=== PATIENT | female | born 1935 | race Caucasian/White ===

== ENCOUNTER → 2017-10-25 11:02 | Outpatient (CLI) | payer MEDICARE, SELFPAY ==
[2017-10-25 13:08] LABS: Hemoglobin A1C 9.1 % (4.5-6.2)
[2017-10-25 13:11] LABS: HCT 40.7 % (36.0-46.0); Mean Corp. HGB Concentration 31.9 g/dL (32.0-36.0); Mean Corpuscular Hemoglobin 30.7 pg (27.0-33.0); Mean Corpuscular Volume 96.2 fL (80-95); Mean Platelet Volume 11.1 fL (8.0-11.0); Platelet Count 263 x1000/uL (130-400); RBC 4.23 m/cumm (4.00-5.20); RBC Distribution Width 13.3 % (11.7-14.6); White Blood Cell Count 9.37 k/cumm (4.4-10.8)
[2017-10-25 13:21] LABS: ALT 27 U/L (12-78); AST 18 U/L (15-37); Albumin 3.8 g/dL (3.4-5.0); Alkaline Phosphatase 95 U/L (46-116); BUN 20 mg/dL (7-18); Bilirubin, Total 0.5 mg/dL (0.2-1.0); CREATININE 0.97 mg/dL (0.55-1.02); Calcium 9.1 mg/dL (8.5-10.1); Chloride 102 mmol/L (98-107); Estimated GFR 54.98 (mL/min/1.73m2); Glucose 242 mg/dL (70-100); Potassium 4.4 mmol/L (3.5-5.1); Sodium 138 mmol/L (136-145); TSH (W/Ref FT4) 0.71 uIU/mL (0.358-3.74); Total Protein 7.6 g/dL (6.4-8.2)
== END ==
PROVIDERS: PCP Family Medicine; Visit Provider Family Medicine
DX: E11.9 Type 2 diabetes mellitus without complications (principal); F41.9 Anxiety disorder, unspecified
CPT/HCPCS: 36415; 80053; 85027; 83036; 84443

== ENCOUNTER → 2017-11-02 02:57 | Outpatient (CLI) | payer MEDICARE, SELFPAY ==
[2017-11-02 10:11] LABS: Hemoglobin A1C 9.1 % (4.5-6.2)
== END ==
PROVIDERS: PCP Family Medicine; Visit Provider Family Medicine
DX: E11.9 Type 2 diabetes mellitus without complications (principal); R10.13 Epigastric pain
CPT/HCPCS: 36415; 83036

== ENCOUNTER 2017-11-09 10:00 | Outpatient (RCR) | payer MEDICARE, SELFPAY ==
--- NOTE | 2017-10-19 09:45 | NT_ITS ---
October 19, 2017 Vanessa cancelled todays scheduled appt secondary to illness.
--- NOTE | 2017-10-26 10:00 | PN_ITS ---
DATE: October 26, 2017 REFERRING: An Valente MD REFERRING PROVIDER DIAGNOSIS:: bilateral leg weakness, frequent falls REPORTING PERIOD (for progress note and discharge note only): 06/29/17-10/26/17 SUBJECTIVE: Vanessa notes that she has had a very busy morning prior coming into dept for her appt. She reports that her and her went out for breakfast for it is there 68 anniversary. She notes that she is already tired secondary to this and has been up since before 6 this morning. Standardized Measures: * Lower Extremity Functional Scale Score (LEFS): 50% perceived disability rating Objective: Gait: Continues to ambulate with wide base of support, shuffling pattern. No assistive device. Has limited arm swing and trunk rotation. She has poor foot clearance and tends to shuffle even with verbal cueing. Upon fatigue, this does get worse. Completed a 6 Min Walk Assessment: Ambulating 270 meters. This has improved since last reassessment. She continues to complain of low back and LE fatigue. She does report she is doing this on a daily basis at home with use of her walker on her porch. This remains the only time that she is utilizing an assistive device even after multiple recommendations that she should be utilizing more consistently to reduce her fear of falling and provide more adequate support with reducing stress on her low back. ROM: Active lumbopelvic forward bend fingertips to mid patella with hamstring drawing. Extension limited to 20 degrees, sidebending is 2 above lateral joint line. Rotation is equal and symmetrical. LE AAROM is WNL. Strength: Hip flexion 4/5, knee extension 5/5, knee flexion 5/5. She is able to heel and toe walk with hand held assistance and CG in case of loss of balance. This is without foot drop. She is independent with sidelying SLR, supine SLR and prone SLR, however has weakness with any resistance assessment of the hip abductors and extensors. Balance: Completed TUG in 11 seconds. Sit to stand transfers completing 2 repetitions in 30 seconds. This still remains very difficult for her and when she gets frustrated she has a hard time coming back and focusing on the task at hand. Have also continued to emphasize her HEP and functional sit to stands at home. She reports that she has not been completing. Her balance feet together for 10 seconds, foot in step of other foot 10 seconds , she is able to assume tandem stance for 10 seconds with FLOOR SWEEPER to assume position and cueing to promote proper weight shift to both LE. Unilateral stance remains very difficult and refused to try due to fatigue. She is very fearful of falling and is unable to focus on keeping core tight to allow the leg to remain up for unilateral. This is equal and consistent bilaterally. She is confident and comfortable with hand held assist. Continue to emphasize use of her walker at all times to prevent fall and fear of safety, and reduced balance. Treatment: Therapeutic Procedure [id number]: Completed Therex per her flow sheet promoting global LE strength and neuromuscular reeducation for balance and proprioceptive tasks. TPx2, NRx1 Treatment time: Direct: 60 minutes Total:60 minutes ASSESSMENT: Patient is an 81 year old female attending physical therapy secondary to bilateral LE weakness with falls, presents WFL ROM, does have some decreased lumbopelvic mobility s/p a previous surgery. She continues to present with core weakness, proximal hip weakness and significant deconditioning with diminished gait and balance. She continues to refuse use of an assistive device , even though we have continued to recommend this. She seems to be more active in her home and community tasks with less irritation. Continues to require PT services to promote level of function once every other week with promotion of strong HEP. Issued shower bench chair to promote her independence with showering with reduced fall risk. Will monitor her response to this. G-Codes (add modifier after appropriate code): Patient's primary functional limitation remains in the category of: * x Mobility - walking and moving around : [id number] Projected goal: [id number] STG: weeks. 1: Improve functional endurance with 6 min walk ambulating 150 meters compared to time of I.E. (Maintained level of greater than 200 meters, however no [id number] improvement since last progress note. 2: Improve tandem stance for 5 seconds. ( Met) 3: Independent sit to stand transfer without use of UE's. (Able to complete, however minimal repetitions). 4: Improve LE strength 1/2 muscle grade or greater. (MET) LTG: weeks. 1: Tolerating community ambulation distances for grocery shopping with use of a rolling walker (Met). 2: Improve perceived disability rating 25% or greater via LEFS (Met) 3: Able to tolerate light household symptoms with more manageable symptoms. ( Met). PLAN: Is for patient to continue once every other week. Our focus is to maintain level of strength, mobility and balance. This is at a maintenance level, do not feel she is going to improve at this pace, however do not want to see her regress with the progress she has made, and feel that on a once every other week basis, this will continue to improve her functional strength, work on home program. Hopefully as the warmer months come around, she will be able to get out more with her in the yard. I do emphasize compliancy of home program as well. Will look at going more towards a wellness portion of therapy as her symptoms present.
--- NOTE | 2017-11-09 10:00 | PTTR_ITS ---
DATE: November 09, 2017 SUBJECTIVE: Vanessa reports that she is having some increased irritation and cramping into her left LE. She tried to touch base with her PCP however they were too busy for her. She reports that she is trying to complete her HEP however does not do good on her own. She continues to feel that the strengthening that she gets in PT is very beneficial. OBJECTIVE: Therapeutic procedures ([id number]). * X HEP review: Upgraded HEP to include seated hamstring stretch and lumbar forward flexion stretch in chair. Completed without difficulty with complaints of increased tightness in her hamstring. * X See flow sheet: Incorporated global LE strength and cardiovascular activity with core stabilization. * X Provided skilled instruction in proper exercise performance: continues to require extensive cueing for proper body mechanics and postural awareness. * X Provided skilled manual cues to facilitate proper muscle recruitment and/ or movement pattern: Neuro Re-education - (73409 x1): Proprioceptive/balance activities utilizing static and dynamic tasks. Still encourage patient to utilize her walker on a regular basis due to her fear of falling and her continued strength deficits. Continues to fatigue quickly. Needs consistent encouragement and reassuring throughout routine. Emphasized her compliancy with a HEP or an outside exercise group class. Direct treatment time: 45minutes Total treatment time: 45 minutes
== END 2017-11-18 23:59 | disposition home or self-care (01) ==
LOC: PT 10:00
PROVIDERS: PCP Family Medicine; Referring Provider Family Medicine; Visit Provider Family Medicine
DX: M62.81 Muscle weakness (generalized) (principal); R29.6 Repeated falls
CPT/HCPCS: 97110; 97112; G8978

== ENCOUNTER 2017-11-18 16:02 | Outpatient (REF) | payer MEDICARE, SELFPAY | END 2017-11-18 16:03 | LOC: LBN 16:02 | PROVIDERS: PCP Family Medicine; Visit Provider Nurse Practitioner Family | DX: N30.90 Cystitis, unspecified without hematuria (principal) | CPT/HCPCS: 87086 ==

== ENCOUNTER 2018-01-05 10:00 | Outpatient (CLI) | payer MEDICARE, SELFPAY ==
[2018-01-05 13:38] LABS: Hemoglobin A1C 9.2 % (4.5-6.2)
== END 2018-01-05 10:20 ==
PROVIDERS: PCP Family Medicine; Visit Provider Family Medicine
DX: E11.9 Type 2 diabetes mellitus without complications (principal); F41.9 Anxiety disorder, unspecified
CPT/HCPCS: 36415; 83036

== ENCOUNTER 2018-05-02 10:10 | Outpatient (CLI) | payer MEDICARE, SELFPAY ==
[2018-05-02 12:47] LABS: Hemoglobin A1C 9.3 % (4.5-6.2)
== END 2018-05-02 10:30 ==
PROVIDERS: PCP Family Medicine; Visit Provider Family Medicine
DX: E11.9 Type 2 diabetes mellitus without complications (principal)
CPT/HCPCS: 36415; 83036

== ENCOUNTER 2018-09-01 13:22 | Outpatient (CLI) | payer MEDICARE, SELFPAY ==
[2018-09-01 13:48] LABS: Abs Immature Grans 0.01 k/cumm (0.0-0.09); Absolute Basophil Count 0.04 k/cumm (0.0-0.2); Absolute Eosinophil Count 0.22 k/cumm (0.0-0.7); Absolute Lymphocyte Count 2.96 k/cumm (1.2-3.4); Absolute Monocyte Count 0.96 k/cumm (0.11-0.7); Absolute Neutrophil Count 6.01 k/cumm (1.2-6.7); Basophils % 0.4; Eosinophils % 2.2; HCT 40.7 % (36.0-46.0); HGB 13.4 g/dL (12.0-15.5); Immature Grans % 0.1; Mean Corp. HGB Concentration 32.9 g/dL (32.0-36.0); Mean Corpuscular Hemoglobin 31.4 pg (27.0-33.0); Mean Corpuscular Volume 95.3 fL (80-95); Mean Platelet Volume 10.6 fL (8.0-11.0); Monocytes % 9.4; Neutrophils % 58.9; Platelet Count 274 x1000/uL (130-400); RBC 4.27 m/cumm (4.00-5.20); RBC Distribution Width 13.2 % (11.7-14.6)
[2018-09-01 14:04] LABS: Hemoglobin A1C 8.6 % (4.5-6.2)
[2018-09-01 14:20] LABS: Bilirubin Negative (Negative); Blood Trace-intact (Negative); Clarity Clear; Glucose Negative (Negative); Ketones Negative (Negative); Leukocyte Esterase Large (Negative); Nitrite Negative (Negative); Urobilinogen 0.2 EU/dL (Up TO 0.2); pH 5.5 (5-8)
[2018-09-01 14:50] LABS: ALT 22 U/L (12-78); AST 13 U/L (15-37); Albumin 3.8 g/dL (3.4-5.0); Alkaline Phosphatase 95 U/L (46-116); Anion Gap 10.6 mmol/L (3-11); BUN 28 mg/dL (7-18); Bilirubin, Total 0.3 mg/dL (0.2-1.0); CO2 27.4 mmol/L (21.0-32.0); CREATININE 1.11 mg/dL (0.55-1.02); Calcium 9.5 mg/dL (8.5-10.1); Chloride 100 mmol/L (98-107); Estimated GFR 46.94 (mL/min/1.73m2); Glucose 163 mg/dL (70-100); Lipase 64 U/L (73-393); Potassium 4.3 mmol/L (3.5-5.1); Sodium 138 mmol/L (136-145); TSH (W/Ref FT4) 0.71 uIU/mL (0.358-3.74); Total Protein 7.5 g/dL (6.4-8.2)
[2018-09-01 14:50] LABS: C & S Indicated? Yes; WBC >50 HPF (0-5)
== END 2018-09-01 13:42 ==
PROVIDERS: PCP Family Medicine; Visit Provider Family Medicine
DX: E11.9 Type 2 diabetes mellitus without complications (principal); R11.2 Nausea with vomiting, unspecified; K29.50 Unspecified chronic gastritis without bleeding
CPT/HCPCS: 36415; 80053; 83690; 87077; 81003; 81015; 83036; 84443; 85025; 87086; 87186

== ENCOUNTER 2018-11-10 03:34 | Outpatient (REF) | payer MEDICARE, SELFPAY | END 2018-11-10 03:54 | LOC: LBN 03:34 | PROVIDERS: PCP Family Medicine; Visit Provider Nurse Practitioner Family | DX: N39.0 Urinary tract infection, site not specified (principal) | CPT/HCPCS: 87086 ==

== ENCOUNTER 2018-11-23 10:02 | Outpatient (CLI) | payer MEDICARE, SELFPAY ==
--- NOTE | 2018-11-23 14:30 | DI.RAD_ITS ---
SYMPTOMS/DIAGNOSIS: LEFT HIP PAIN, M25.552 LEFT HIP AND PELVIS: Three views were obtained. There is mild narrowing of the cartilaginous joint space of the hip superiorly on the left. There are soft tissue calcifications adjacent to the greater trochanter of the femur, which could be associated with a trochanteric bursitis. No other bony or soft tissue abnormality seen involving the left hip. Findings of joint space narrowing and peritrochanteric calcification also noted on the right. 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
[2018-11-23 16:21] LABS: Hemoglobin A1C 7.6 % (4.5-6.2)
== END 2018-11-23 10:22 ==
PROVIDERS: PCP Family Medicine; Visit Provider Family Medicine
DX: M25.552 Pain in left hip (principal); M70.62 Trochanteric bursitis, left hip; E11.9 Type 2 diabetes mellitus without complications
CPT/HCPCS: 36415; 73502; 83036

== ENCOUNTER 2018-12-22 10:34 | Emergency (ER) | payer MEDICARE, SELFPAY ==
[2018-12-22 10:39] VITALS: BP 154/80; PULSE 103; RESP 16; TEMP 36.6; O2SAT 100
[2018-12-22 11:21] LABS: Bilirubin Negative (Negative); Blood Negative (Negative); Clarity Clear (Clear); Glucose 250 mg/dL (Negative); Ketones Negative (Negative); Leukocyte Esterase Trace (Negative); Nitrite Negative (Negative); Urobilinogen 0.2 EU/dL (Up TO 0.2); pH 5.5 (5-8)
[2018-12-22 11:27] LABS: Abs Immature Grans 0.03 k/cumm (0.0-0.09); Absolute Basophil Count 0.02 k/cumm (0.0-0.2); Absolute Eosinophil Count 0.12 k/cumm (0.0-0.7); Absolute Lymphocyte Count 2.24 k/cumm (1.2-3.4); Absolute Monocyte Count 0.66 k/cumm (0.11-0.7); Absolute Neutrophil Count 6.33 k/cumm (1.2-6.7); Basophils % 0.2; Eosinophils % 1.3; HCT 39.9 % (36.0-46.0); HGB 13.2 g/dL (12.0-15.5); Immature Grans % 0.3; Lymphocytes % 23.8; Mean Corp. HGB Concentration 33.1 g/dL (32.0-36.0); Mean Corpuscular Hemoglobin 31.4 pg (27.0-33.0); Mean Corpuscular Volume 94.8 fL (80-95); Mean Platelet Volume 10.1 fL (8.0-11.0); Neutrophils % 67.4; Platelet Count 251 x1000/uL (130-400); RBC 4.21 m/cumm (4.00-5.20); RBC Distribution Width 13.2 % (11.7-14.6)
[2018-12-22 11:40] LABS: ALT 17 U/L (14-59); AST 11 U/L (15-37); Albumin 3.7 g/dL (3.4-5.0); Alkaline Phosphatase 82 U/L (46-116); BUN 20 mg/dL (7-18); Bilirubin, Total 0.4 mg/dL (0.2-1.0); CREATININE 1.04 mg/dL (0.55-1.02); Calcium 8.8 mg/dL (8.5-10.1); Chloride 102 mmol/L (98-107); Estimated GFR 50.61 (mL/min/1.73m2); Glucose 254 mg/dL (70-100); Lipase 72 U/L (73-393); Potassium 3.9 mmol/L (3.5-5.1); Sodium 139 mmol/L (136-145); Total Protein 7.9 g/dL (6.4-8.2)
[2018-12-22 11:42] LABS: Bacteria Few HPF (Negative); C & S Indicated? Yes; Casts Negative LPF (Negative); Crystals Negative HPF (Negative); Epithelial Cells Few HPF (Negative); Mucus Trace (Negative)
[2018-12-22] MEDS: Lactated Ringers 1,000 ML 1000 ML IV (11:45)
--- NOTE | 2018-12-22 12:33 | W.ED.GENAD ---
Discharge Plan Disposition Patient Disposition: HOME Discharge Details Chief Complaint: Abd Prob Clinical Impression: Diarrhea, Chills Primary Care Provider: An Valente ED Provider: Howard Cook Home Meds and New Rx's Prescriptions: Continued calcium polycarbophil 625 mg tablet 1,250 mg PO DAILY RF: 0 Levemir FlexTouch U-100 Insuln 100 unit/mL (3 mL) insulin pen 17 unit SC QHS RF: 0 Tradjenta 5 mg tablet 5 mg PO QAM Qty: 90 RF: 4 lisinopril 2.5 mg tablet 2.5 mg PO DAILY Qty: 90 RF: 12 pantoprazole 40 mg tablet,delayed release (DR/EC) 40 mg PO DAILY Qty: 90 RF: 12 quetiapine 50 mg tablet 50 mg PO HS Qty: 90 RF: 6 quetiapine [Seroquel] 25 mg tablet 25 mg PO BID Qty: 180 RF: 4 pregabalin [Lyrica] 25 mg capsule 25 mg PO BID Qty: 60 RF: 4 Lumigan 5 ML drops 1 drp OU HS RF: 0 (DME) blood-glucose meter 1 EACH misc 1 ea Miscellaneous DAILY Qty: 100 RF: 12 (DME) lancets 1 EACH misc 1 ea Miscellaneous DAILY Qty: 100 RF: 4 (DME) Blood Glucose Test 1 EACH strip 1 ea Miscellaneous DAILY Qty: 100 RF: 12 sennosides-docusate sodium [Senna-S] 1 EACH tablet 1 tab PO HS PRNRF: 0 timolol maleate 15 ML drops 0.5 ml Ophthalmic DAILY Qty: 1 RF: 0 acetaminophen [Tylenol Extra Strength] 500 MG tablet 1 - 2 tab PO TID PRNRF: 0 (DME) Depend Underwear For Women S-M 1 EACH misc 1 ea Miscellaneous TID Qty: 90 RF: 11 uri calm 1 tab PO RF: 0 (DME) insulin syringe needleless [BD Insulin Syringe Slip Tip] 1 mL syringe See Dose Instructions .ROUTE BID Qty: 90 RF: 12 (DME) pen needle, diabetic [BD Ultra-Fine Mini Pen Needle] 31 gauge x 3/16 needle See Dose Instructions .ROUTE .MEDSUPPLY Qty: 90 RF: 4 fluticasone propionate 50 mcg/actuation spray,suspension 2 spray Inhalation BID Qty: 18.2 RF: 3 cholecalciferol (vitamin D3) 1,000 unit capsule 2,000 unit PO DAILY RF: 0 meclizine 12.5 mg tablet 12.5 mg PO DAILY PRN (Reason: dizziness) Qty: 90 RF: 0 triamcinolone acetonide 0.1 % paste 0.5 % Dental BID - QID Qty: 5 RF: 1 tramadol 50 mg tablet 50 mg PO TID PRN (Reason: pain) Qty: 90 RF: 4 lorazepam 0.5 mg tablet 0.25 mg PO BID-TID PRN (Reason: anxiety) Qty: 60 RF: 1 Discharge Instructions Instructions: Acute Diarrhea (ED), Diabetic Hyperglycemia (ED) Additional Instructions: Please contact your primary care physician to arrange follow-up. Call today. Please talk to your doctor about additional outpatient diagnostic testing including stool testing. Drink plenty of fluid to stay hydrated. Your blood sugar was elevated today at 254. Be sure to monitor your blood sugar closely and take your insulin as prescribed. Return to the ER for any worsening or new concerning symptoms. Referrals: An Valente MD, [place] [Primary Care Provider] - Discharge Data Discharge Date/Time-TO BE ENTERED AT DEPARTURE: 12/22/18 13:52 Medical Decision Making 1236: 83-year-old female with history of multiple medical problems here with complaint of intermittent diarrhea for 1.5 to 2 months now with some chills today. Abdominal exam benign with no tenderness. Patient denies cough. She denies urinary symptoms. Labs reviewed and nondiagnostic. No leukocytosis. Electrolytes normal. Urinalysis was reviewed and she does have trace leuk esterase, 10-20 WBCs. Negative nitrite, few epithelial cells. Plan to send urine culture -if culture positive, would recommend antibiotic coverage. Rectal exam was performed with female nurse office clinician and no significant inflammation of the rectum, no gross blood, Hemoccult negative. Patient unable to provide stool specimen here. I will refer her to follow-up with her primary care physician for additional stool testing given duration of symptoms. All results were discussed with the patient. Patient understands plan for outpatient follow-up. She will call her primary care physician to arrange timely follow-up. I encouraged her to return should have any worsening or new concerning symptoms. Usual and customary discharge instructions were provided. I did attempt to contact patient's PCP was able to get through to her at office. HPI General Mode of arrival: ambulatory. Date/Time Provider Initiated Documentation: 12/22/18 10:57. Limitations to Documentation: no limitations. Information obtained by: patient and family. HPI Narrative: 83-year-old female with multiple medical problems presents today with her , complaining of loose stools. Patient notes that she is been having loose stools intermittently for months. Patient notes she attempted to contact her primary care physician today was unable to. She notes that today she is been concerned because she has had some chills. Patient denies associated cough. No dysuria or increased urinary frequency. Patient denies bright red blood per rectum or melena. She denies abdominal pain. She does note that her rectum is sore when she has bowel movements. Related Data Home Medications Medication Instructions Recorded Confirmed Lumigan 1 drp OU HS script 10/08/13 12/22/18 blood-glucose meter #100 ea 06/23/15 12/05/18 lancets #100 ea 06/23/15 12/05/18 Blood Glucose Test #100 strip 10/03/15 12/05/18 sennosides-docusate sodium 1 tab PO HS PRN 05/27/16 12/22/18 [Senna-S] timolol maleate 0.5 ml OPHTHALMIC DAILY #1 script 10/19/16 12/22/18 acetaminophen [Tylenol Extra 1 - 2 tab PO TID PRN 06/23/17 12/22/18 Strength] Depend Underwear For Women S-M #90 ea 08/22/17 12/05/18 Uri Calm 1 tab PO 11/18/17 12/05/18 insulin syringe needleless 1 mL #90 syringe 05/08/18 12/05/18 pen needle, diabetic 31 gauge x #90 each 05/11/18 12/05/1806/03 calcium polycarbophil 625 mg tablet 1,250 mg PO DAILY 06/01/18 12/22/18 fluticasone propionate 50 2 spray INHALATION BID #18.2 gm 06/23/18 12/22/18 mcg/actuation nasal spray,suspension insulin detemir U-100 100 unit/mL 17 unit SC QHS ml 08/15/18 12/22/18 (3 mL) subcutaneous pen cholecalciferol (vitamin D3) 1,000 2,000 unit PO DAILY cap 08/23/18 12/22/18 unit capsule linagliptin 5 mg tablet 5 mg PO QAM #90 tab 08/23/18 12/22/18 lisinopril 2.5 mg tablet 2.5 mg PO DAILY #90 tab-cap 09/04/18 12/22/18 pantoprazole 40 mg tablet,delayed 40 mg PO DAILY #90 tab-cap 09/04/18 12/22/18 release quetiapine 25 mg tablet 25 mg PO BID #180 tab-cap 09/04/18 12/22/18 quetiapine 50 mg tablet 50 mg PO HS #90 tab-cap 09/04/18 12/22/18 meclizine 12.5 mg tablet 12.5 mg PO DAILY PRN #90 tab 10/12/18 12/22/18 triamcinolone acetonide 0.1 % 0.5 % DENTAL BID - QID #5 gm 11/21/18 12/22/18 dental paste tramadol 50 mg tablet 50 mg PO TID PRN #90 tab 11/29/18 12/22/18 lorazepam 0.5 mg tablet 0.25 mg PO BID-TID PRN #60 tab 12/04/18 12/22/18 pregabalin 25 mg capsule 25 mg PO BID #60 cap 12/05/18 12/22/18 Previous Rx's Medication Instructions Recorded insulin syringe needleless 1 mL #90 syringe 05/08/18 pen needle, diabetic 31 gauge x #90 each 05/11/1806/03 fluticasone propionate 50 2 spray INHALATION BID #18.2 gm 06/23/18 mcg/actuation nasal spray,suspension linagliptin 5 mg tablet 5 mg PO QAM #90 tab 08/23/18 lisinopril 2.5 mg tablet 2.5 mg PO DAILY #90 tab-cap 09/04/18 pantoprazole 40 mg tablet,delayed 40 mg PO DAILY #90 tab-cap 09/04/18 release quetiapine 25 mg tablet 25 mg PO BID #180 tab-cap 09/04/18 quetiapine 50 mg tablet 50 mg PO HS #90 tab-cap 09/04/18 meclizine 12.5 mg tablet 12.5 mg PO DAILY PRN #90 tab 07/25/19 triamcinolone acetonide 0.1 % 0.5 % DENTAL BID - QID #5 gm 11/21/18 dental paste tramadol 50 mg tablet 50 mg PO TID PRN #90 tab 11/29/18 lorazepam 0.5 mg tablet 0.25 mg PO BID-TID PRN #60 tab 12/04/18 pregabalin 25 mg capsule 25 mg PO BID #60 cap 12/05/18 Allergies Allergy/AdvReac Type Severity Reaction Status Date / Time erythromycin base Allergy Mild Skin Rash Verified 12/05/18 12:58 aminophylline Allergy Unknown unknown Verified 12/05/18 12:58 ethylenediamine Allergy Unknown unknown Verified 12/05/18 12:58 nystatin Allergy Unknown unknown Verified 12/05/18 12:58 pyrilamine Allergy Unknown unknown Verified 12/05/18 12:58 ampicillin Allergy Skin Rash Verified 12/05/18 12:58 zinc Allergy unknown Verified 12/05/18 12:58 clindamycin AdvReac Intermediate upset Verified 12/05/18 12:58 stomach/diarrhea hydrocodone AdvReac Intermediate Nausea Verified 12/05/18 12:58 metformin AdvReac Intermediate Verified 12/05/18 12:58 nitrofurantoin AdvReac Intermediate Diarrhea, Verified 12/05/18 12:58 increased LFT's ciprofloxacin [From Cipro] AdvReac Diarrha Verified 12/05/18 12:58 ciprofloxacin HCl AdvReac Diarrha Verified 12/05/18 12:58 [From Cipro] gabapentin AdvReac Makes her Verified 12/05/18 12:58 feel funny mirtazapine AdvReac Makes room Verified 12/05/18 12:58 spin General Stated Complaint: Abd Prob BERTRAND: 4 Review of Systems Review of Systems ROS Unobtainable: All systems reviewed & are unremarkable except as noted in HPI and below Cardiovascular Cardiovascular: Denies chest pain Respiratory Respiratory: Denies cough Gastrointestinal Gastrointestinal: Reports as per HPI, Denies abdominal pain and Reports diarrhea Integumentary/Breasts Skin/Breast: Denies rash [facility] Medical History Abnormal weight loss (Resolved 01/19/11) now normal Abnormal weight loss (Resolved 01/19/11) Allergic rhinitis (Resolved) Anxiety Anxiety (Chronic) Asthma (Chronic 05/24/12) Bacterial vaginosis (Resolved 04/18/13) Cataract of both eyes (Resolved 01/22/16) Cataracts, bilateral (Resolved) 01/22/16 Cervical pain (neck) (Resolved) 12/06/16 Cholelithiasis without obstruction (Resolved) 05/24/12 s/p cholecystectomy Cholelithiasis without obstruction (Resolved 05/24/12) Chronic duodenal ulcer (Resolved) Chronic duodenal ulcer (Resolved) Chronic gastritis (Resolved) per EGD in 1999 Chronic gastritis (Chronic) Chronic right shoulder pain (Resolved) 12/15/15 Cystocele, midline (Chronic) Depressive disorder (Chronic 11/13/12) Diabetes mellitus (Chronic 05/24/12) poor control; poor insight Diabetes mellitus, type 2 Elevated LFTs (Resolved) 06/17/14 Essential hypertension (Chronic 01/01/13) Fatigue (Chronic 08/12/15) Gastroparesis (Chronic 08/17/16) Glaucoma (Chronic 11/06/13) Health education/counseling (Resolved) Hyperlipidemia (Chronic 11/13/12) Hypertension Impaired ambulation (Chronic) Increased frequency of urination (Resolved) 01/18/12 Increased frequency of urination (Chronic 01/18/12) Irritable colon (Chronic) 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) Mammogram abnormal (Resolved) 02/17/95 left Medication management (Chronic 07/31/15) easily and often confused about medications despite several interventions (HH, CCC, BHS, multiple OV) Memory changes (Chronic) Nausea (Inactive) Nausea with vomiting (Resolved) 01/18/12 Neck pain (Chronic 12/06/16) Neurodermatitis (Chronic) Onychomycosis (Chronic 12/06/16) 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 Valente Peptic ulcer (Resolved) 04/20/11 Dr. 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) S/P SURGERY Spinal stenosis, multilevel (Resolved) 05/04/11 Syncope (Resolved 12/05/12) Trigger finger (acquired) (Resolved 06/17/16) Trigger finger, left middle finger (Chronic 07/07/16) Trochanteric bursitis (Resolved 01/21/11) Trochanteric bursitis (Resolved 01/21/11) Urinary incontinence (Chronic 12/06/16) Surgical History Cholecystectomy (~1998) Colonoscopy - MAC (~1998) NEG EGD - MAC (08/03/11) H/O esophagogastroduodenoscopy (Resolved) 03/21/11 Hysterectomy, Laproscopic (~1989) S/P cholecystectomy (Resolved) 03/21/98 S/P laparoscopic hysterectomy (Resolved) 03/21/89 Status post cholecystectomy (Resolved) Status post laparoscopic hysterectomy (Resolved) Family History Mother , AGE 78 Diabetes Father Diabetes Heart disease Sister Diabetes Brother Diabetes Heart disease Sister Diabetes Social History Smoking/Tobacco Use Status: Never Alcohol Intake: never Drug use: Never Substance use type: does not use Household members: spouse What type of physical activity do you participate in: decline to answer Duration: decline to answer Frequency: decline to answer Christelle/Anabaptism: Gnosticism Special christelle needs: No Seatbelt use: always Do you feel safe at home: Yes Do you feel safe in your relationship?: Yes Exam Const General: cooperative and no acute distress HENMT Head: normocephalic Mouth: moist mucous membranes Eyes Conjunctivae: normal conjunctivae Sclera: normal sclerae Neck Neck: trachea midline and supple Resp Auscultation: clear to auscultation bilaterally, no rales, no rhonchi and no wheezes Cardio Jugular venous pressure: no JVD Rate: regular rate and not tachycardic Rhythm: regular rhythm GI Palpation: soft, not firm, no guarding, no masses, not rigid and nontender Skin General skin exam: no rashes or lesions noted Neuro General: alert, awake and tone normal Extrem General: no edema Psych Appearance: grossly normal Mental Status: mental status grossly normal Course Vital Signs Vital signs: Vital Signs Temperature 36.6 C 12/22/18 10:39 Pulse 103 H 12/22/18 10:39 Respiratory Rate 16 12/22/18 10:39 Blood Pressure 154/80 H 12/22/18 10:39 Pulse Oximetry 100 12/22/18 10:39 Temperature 36.6 C 12/22/18 10:39 Temperature Source Skin 12/22/18 10:39 Pulse 103 H 12/22/18 10:39 Respiratory Rate 16 12/22/18 10:39 Respiratory Effort Non-Labored 12/22/18 10:42 Blood Pressure 154/80 H 12/22/18 10:39 Pulse Oximetry 100 12/22/18 10:39 Oxygen Delivery Method Room Air 12/22/18 10:39 Oxygen Flow Rate 0 12/22/18 10:39 Lab/Test Results Lab/Test Results: 12/22/18 11:01 Urine - Reflex from Ua Urine Culture - Pending Laboratory Tests Range/Units 12/22/18 12/22/18 12/22/18 11:01 11:22 11:22 WBC (4.4-10.8) k/cumm 9.40 RBC (4.00-5.20) m/cumm 4.21 Hgb (12.0-15.5) g/dL 13.2 Hct (36.0-46.0) % 39.9 MCV (80-95) fL 94.8 MCH (27.0-33.0) pg 31.4 MCHC (32.0-36.0) g/dL 33.1 RDW (11.7-14.6) % 13.2 Plt Count (130-400) x1000/uL 251 MPV (8.0-11.0) fL 10.1 Immature Gran % 0.3 Neutrophils % 67.4 Lymphocytes % 23.8 Monocytes % 7.0 Eosinophils % 1.3 Basophils % 0.2 Absolute Neutrophils (1.2-6.7) k/cumm 6.33 Absolute Lymphocytes (1.2-3.4) k/cumm 2.24 Absolute Monocytes (0.11-0.7) k/cumm 0.66 Absolute Eosinophils (0.0-0.7) k/cumm 0.12 Absolute Basophils (0.0-0.2) k/cumm 0.02 Sodium (136-145) mmol/L 139 Potassium (3.5-5.1) mmol/L 3.9 Chloride (98-107) mmol/L 102 Carbon Dioxide (21.0-32.0) mmol/L 26.0 Anion Gap (3-11) mmol/L 11.0 BUN (7-18) mg/dL 20 H Creatinine (0.55-1.02) mg/dL 1.04 H Estimated GFR/1.73 m2 (mL/min/1.73m2) 50.61 Glucose (70-100) mg/dL 254 H Calcium (8.5-10.1) mg/dL 8.8 Total Bilirubin (0.2-1.0) mg/dL 0.4 AST (15-37) U/L 11 L ALT (14-59) U/L 17 Alkaline Phosphatase (46-116) U/L 82 Total Protein (6.4-8.2) g/dL 7.9 Albumin (3.4-5.0) g/dL 3.7 Lipase (73-393) U/L 72 L Urine Color (Yellow) Yellow Urine Clarity (Clear) Clear Urine pH (5-8) 5.5 Ur Specific Emerson (1.005-1.025) 1.020 Urine Protein (Negative) mg/dL Negative Urine Ketones (Negative) mg/dL Negative Urine Blood (Negative) Negative Urine Nitrite (Negative) Negative Urine Bilirubin (Negative) Negative Urine Urobilinogen (Up TO 0.2) EU/dL 0.2 Ur Leukocyte Esterase (Negative) Trace H Urine RBC (0-2) 3-5 H Urine WBC (0-5) HPF 10-20 Ur Epithelial Cells (Negative) HPF Few Urine Crystals (Negative) HPF Negative Urine Bacteria (Negative) HPF Few Urine Casts (Negative) LPF Negative Urine Mucus (Negative) Trace Ur Culture Indicated? Yes Urine Glucose (Negative) mg/dL 250 H
--- NOTE | 2018-12-22 16:27 | NUR.NOTE ---
Nursing Note: Referral faxed to [facility] for follow up. Eloina Nguyễn.
== END 2018-12-22 13:52 | disposition home or self-care (01) ==
PROVIDERS: Emergency Provider Student in an Organized Health Care Education/Training Program; PCP Family Medicine
DX: R19.7 Diarrhea, unspecified (principal); R68.83 Chills (without fever)
CPT/HCPCS: 36415; 80053; 83690; 96360; 99283; 81003; 81015; 85025; 87086

== ENCOUNTER 2018-12-26 11:03 | Outpatient (REF) | payer MEDICARE, SELFPAY ==
[2018-12-27 11:13] LABS: Campylobacter PCR SEE COMMENTS; Salmonella PCR SEE COMMENTS; Shiga Toxin PCR SEE COMMENTS; Shigella/Enteroinvasive Ecoli SEE COMMENTS
== END 2018-12-26 11:23 ==
LOC: LBN 11:03
PROVIDERS: PCP Family Medicine; Visit Provider Family Medicine
DX: K29.50 Unspecified chronic gastritis without bleeding (principal); R10.9 Unspecified abdominal pain
CPT/HCPCS: 87505

== ENCOUNTER 2018-12-29 00:17 | Outpatient (CLI) | payer MEDICARE, SELFPAY ==
--- NOTE | 2018-12-29 11:57 | DI.CT_ITS ---
EXAM: CT ABDOMEN PELVIS W CLINICAL HISTORY: CHRONIC ABDOMINAL PAIN, R10.9, GASTRITIS, K29.50. TECHNIQUE: A with oral and intravenous contrast enhanced CT examination of the abdomen and pelvis wa s carried out according to the usual protocol. COMPARISON: ABD PELVIS WITH CONTRAST from 06/15/2014 FINDINGS: There are small regions of atelectasis in the left lung base. Note is made of a small hiatus herni a. Patient is status post cholecystectomy and there is some dilatation of the common duct and mild d ilatation of the intrahepatic biliary radicles. Findings presumably on a postsurgical basis. The pa ncreas is atrophic. Spleen is unremarkable. Very small bilateral renal cysts. Extrarenal pelves ar e demonstrated. There is no evidence of hydronephrosis. The adrenals are intact. There is no evide nce of bowel obstruction. There is nothing to suggest an acute appendix. The bladder is dilated and is otherwise unremarkable. The patient is status post hysterectomy. There is no evidence of free flu id or free air in the intraperitoneal space. There are atherosclerotic changes involving the aorta w ithout evidence of an aneurysm. Diffuse degenerative changes involving the lower lumbar spine are ap parent. IMPRESSION: No acute abnormality is seen. Status post cholecystectomy and hysterectomy. There is some dilatatio n of the common duct and intrahepatic biliary radicles, most likely on a postsurgical basis. No harrison l pathology is apparent. Note is made of considerable dilatation of the bladder.
[2018-12-29] MEDS: Omnipaque 350 MG/ML 50 ML BTL PO (12:35)
[2018-12-29] MEDS: Breeza Beverage 473 ML BTL PO ×2 (12:35→12:36)
[2018-12-29] MEDS: Omnipaque 350 MG/ML 100 ML BTL IJ (14:03)
== END 2018-12-29 00:37 ==
PROVIDERS: PCP Family Medicine; Visit Provider Family Medicine
DX: R10.9 Unspecified abdominal pain (principal); K29.50 Unspecified chronic gastritis without bleeding; G89.29 Other chronic pain; N32.89 Other specified disorders of bladder; Z90.49 Acquired absence of other specified parts of digestive tract; Z90.710 Acquired absence of both cervix and uterus; K83.8 Other specified diseases of biliary tract
CPT/HCPCS: 74177; J3490; Q9967

== ENCOUNTER 2019-01-09 10:58 | Outpatient (CLI) | payer MEDICARE, SELFPAY ==
[2019-01-10 13:44] LABS: Bilirubin Negative (Negative); Blood Negative (Negative); Clarity Clear (Clear); Glucose Negative (Negative); Ketones Negative (Negative); Leukocyte Esterase Moderate (Negative); Nitrite Positive (Negative); Specific Gravity 1.015 (1.005-1.025); Urobilinogen 0.2 EU/dL (Up TO 0.2); pH 5.5 (5-8)
[2019-01-10 13:58] LABS: Bacteria Many HPF (Negative); C & S Indicated? Yes; Casts Negative LPF (Negative); Crystals Negative HPF (Negative); Epithelial Cells Few HPF (Negative); Mucus Negative (Negative); RBC Negative (0-2); WBC >50 HPF (0-5)
== END 2019-01-09 11:18 ==
PROVIDERS: PCP Family Medicine; Visit Provider Family Medicine
DX: R30.0 Dysuria (principal)
CPT/HCPCS: 87077; 81003; 81015; 87086; 87186

== ENCOUNTER → 2019-01-10 12:53 | Outpatient (BNVA) | payer MEDICARE, SELFPAY | PROVIDERS: PCP Family Medicine; Referring Provider Family Medicine; Visit Provider Surgery | DX: R19.7 Diarrhea, unspecified (principal); I10 Essential (primary) hypertension; E11.9 Type 2 diabetes mellitus without complications | CPT/HCPCS: 99202; 99213 ==

== ENCOUNTER 2019-01-11 16:37 | Outpatient (REF) | payer MEDICARE, SELFPAY ==
[2019-01-13 11:19] LABS: Campylobacter PCR SEE COMMENTS; Salmonella PCR SEE COMMENTS; Shiga Toxin PCR SEE COMMENTS; Shigella/Enteroinvasive Ecoli SEE COMMENTS
== END 2019-01-11 16:57 ==
LOC: LBN 16:37
PROVIDERS: PCP Family Medicine; Visit Provider Surgery
DX: R19.7 Diarrhea, unspecified (principal)
CPT/HCPCS: 87505; 83630; 87324

== ENCOUNTER 2019-01-12 14:15 | Emergency (ER) | payer MEDICARE, SELFPAY ==
[2019-01-12] VITALS (7 sets, daily range): BP systolic 94–147; BP diastolic 51–113; PULSE 67–71; RESP 16–20; TEMP 35.9–36.8; O2SAT 97–98
--- NOTE | 2019-01-12 14:35 | DI.CT_ITS ---
EXAM: CT HEAD WO CLINICAL HISTORY: fall, head trauma TECHNIQUE: The exam was performed according to the usual protocol without contrast. COMPARISON: HEAD WITHOUT CONTRAST from 08/01/2011 FINDINGS: Ventricles and sulci are consistent with the patient's age. There are areas of decreased attenuation in the white matter most consistent with small vessel ischemic disease. No acute intracranial hemor rhage, midline shift, or mass effect is present. The ventricles are intact. The basilar cisterns ar e patent. No fluid levels are seen in the visualized paranasal sinuses. There is mild mucosal thick ening in the ethmoid air cells. Mastoid air cells are well pneumatized. The calvarium is intact. IMPRESSION: No acute intracranial process.
--- NOTE | 2019-01-12 14:36 | W.ED.GENAD ---
Discharge Plan Disposition Patient Disposition: HOME Condition: Stable Discharge Details Chief Complaint: Dizzy/Sync Clinical Impression: Vertigo Primary Care Provider: An Valente ED Provider: James Easley Home Meds and New Rx's Prescriptions: Continued calcium polycarbophil 625 mg tablet 1,250 mg PO DAILY RF: 0 Levemir FlexTouch U-100 Insuln 100 unit/mL (3 mL) insulin pen 17 unit SC QHS RF: 0 Tradjenta 5 mg tablet 5 mg PO QAM Qty: 90 RF: 4 lisinopril 2.5 mg tablet 2.5 mg PO DAILY Qty: 90 RF: 12 pantoprazole 40 mg tablet,delayed release (DR/EC) 40 mg PO DAILY Qty: 90 RF: 12 quetiapine [Seroquel] 25 mg tablet 25 mg PO BID Qty: 180 RF: 4 pregabalin [Lyrica] 25 mg capsule 25 mg PO BID Qty: 60 RF: 4 Lumigan 5 ML drops 1 drp OU HS RF: 0 (DME) blood-glucose meter 1 EACH misc 1 ea Miscellaneous DAILY Qty: 100 RF: 12 (DME) lancets 1 EACH misc 1 ea Miscellaneous DAILY Qty: 100 RF: 4 (DME) Blood Glucose Test 1 EACH strip 1 ea Miscellaneous DAILY Qty: 100 RF: 12 sennosides-docusate sodium [Senna-S] 1 EACH tablet 1 tab PO HS PRNRF: 0 timolol maleate 15 ML drops 0.5 ml Ophthalmic DAILY Qty: 1 RF: 0 acetaminophen [Tylenol Extra Strength] 500 MG tablet 1 - 2 tab PO TID PRNRF: 0 (DME) Depend Underwear For Women S-M 1 EACH misc 1 ea Miscellaneous TID Qty: 90 RF: 11 uri calm 1 tab PO RF: 0 (DME) insulin syringe needleless [BD Insulin Syringe Slip Tip] 1 mL syringe See Dose Instructions .ROUTE BID Qty: 90 RF: 12 (DME) pen needle, diabetic [BD Ultra-Fine Mini Pen Needle] 31 gauge x 3/16 needle See Dose Instructions .ROUTE .MEDSUPPLY Qty: 90 RF: 4 cholecalciferol (vitamin D3) 1,000 unit capsule 2,000 unit PO DAILY RF: 0 meclizine 12.5 mg tablet 12.5 mg PO DAILY PRN (Reason: dizziness) Qty: 90 RF: 0 triamcinolone acetonide 0.1 % paste 0.5 % Dental BID - QID Qty: 5 RF: 1 tramadol 50 mg tablet 50 mg PO TID PRN (Reason: pain) Qty: 90 RF: 4 lorazepam 0.5 mg tablet 0.25 mg PO BID-TID PRN (Reason: anxiety) Qty: 60 RF: 1 Discharge Instructions Additional Instructions: your lab work and cat scan did not show any concerning findings take the meclizine every 6 hours follow up with your primary care provider next week if you feel more ill, have fevers or difficulty breathing or pain return to the emergency department Medical Decision Making 83 yo female with multiple medical problems comes in after she had an episode where she became dizzy, flushed, n/v and felt like she may lose consciousness. She was shopping in [employer] and was sitting on her walking chair and the symptoms started. She denies chest pain, sob, abdominal pain. She states she feels dizzy similar to her prior vertigo that she takes meclizine for. she has nofocal neuro deficits, NIH of 0 on exam. She has a reassuring HINTs exam. I suspect that this was vasovagal syncope but will eval for anemia, electrolyte abnormalities, cardiac ischemia and given the fall obtain ct head. pt's labs and imaging are unremarkable and her symptoms have resolved with meclizine which she has at home. Feel she is stable for d/c, likely had vasovagal episode vs peripheral vertigo. Discussed the results with her and robert and they are in agreement with d/c and follow up with pcp, return precautions given Differential Diagnosis Differential Diagnosis: orthostasis, vasovagal, syncope Medical Records Medical records reviewed: Yes I reviewed the patient's medical records. Imaging Data Radiologic Study: Attestation: I personally reviewed and interpreted this imaging study as follows: Imaging: CT Scan Radiologist's impression: no acute findings Lab Data Lab results reviewed: Yes I reviewed the patient's lab results. ECG Data Attestation: I personally reviewed and interpreted this ECG (s) as follows: Prior ECG tracings: not available for review Interpretation: sinus rhythm, rate of 60, pr 150 HPI General Mode of arrival: EMS. Date/Time Provider Initiated Documentation: 01/12/19 14:16. Limitations to Documentation: no limitations. Information obtained by: patient and EMS. History of Present Illness 83 year old F presents to the emergency department with the chief complaint of dizzy, described as moderate, Patient started experiencing this hour(s) (1) No relieving factors improve symptom(s), No exacerbating factors reported . Patient notes no other symptoms.. Related Data Home Medications Medication Instructions Recorded Confirmed Lumigan 1 drp OU HS script 10/08/13 01/10/19 blood-glucose meter #100 ea 06/23/15 01/10/19 lancets #100 ea 06/23/15 01/10/19 Blood Glucose Test #100 strip 10/03/15 01/10/19 sennosides-docusate sodium 1 tab PO HS PRN 05/27/16 01/10/19 [Senna-S] timolol maleate 0.5 ml OPHTHALMIC DAILY #1 script 10/19/16 01/10/19 acetaminophen [Tylenol Extra 1 - 2 tab PO TID PRN 06/23/17 01/10/19 Strength] Depend Underwear For Women S-M #90 ea 08/22/17 01/10/19 Uri Calm 1 tab PO 11/18/17 01/10/19 insulin syringe needleless 1 mL #90 syringe 05/08/18 01/10/19 pen needle, diabetic 31 gauge x #90 each 05/11/18 01/10/1906/03 calcium polycarbophil 625 mg tablet 1,250 mg PO DAILY 06/01/18 01/10/19 insulin detemir U-100 100 unit/mL 17 unit SC QHS ml 08/15/18 01/10/19 (3 mL) subcutaneous pen cholecalciferol (vitamin D3) 1,000 2,000 unit PO DAILY cap 08/23/18 01/10/19 unit capsule linagliptin 5 mg tablet 5 mg PO QAM #90 tab 08/23/18 01/10/19 lisinopril 2.5 mg tablet 2.5 mg PO DAILY #90 tab-cap 09/04/18 01/10/19 pantoprazole 40 mg tablet,delayed 40 mg PO DAILY #90 tab-cap 09/04/18 01/10/19 release quetiapine 25 mg tablet 25 mg PO BID #180 tab-cap 09/04/18 01/10/19 meclizine 12.5 mg tablet 12.5 mg PO DAILY PRN #90 tab 10/12/18 01/10/19 triamcinolone acetonide 0.1 % 0.5 % DENTAL BID - QID #5 gm 11/21/18 01/10/19 dental paste tramadol 50 mg tablet 50 mg PO TID PRN #90 tab 11/29/18 01/10/19 lorazepam 0.5 mg tablet 0.25 mg PO BID-TID PRN #60 tab 12/04/18 01/10/19 pregabalin 25 mg capsule 25 mg PO BID #60 cap 12/05/18 01/10/19 Previous Rx's Medication Instructions Recorded insulin syringe needleless 1 mL #90 syringe 05/08/18 pen needle, diabetic 31 gauge x #90 each 05/11/1806/03 linagliptin 5 mg tablet 5 mg PO QAM #90 tab 08/23/18 lisinopril 2.5 mg tablet 2.5 mg PO DAILY #90 tab-cap 09/04/18 pantoprazole 40 mg tablet,delayed 40 mg PO DAILY #90 tab-cap 09/04/18 release quetiapine 25 mg tablet 25 mg PO BID #180 tab-cap 09/04/18 meclizine 12.5 mg tablet 12.5 mg PO DAILY PRN #90 tab 10/12/18 triamcinolone acetonide 0.1 % 0.5 % DENTAL BID - QID #5 gm 11/21/18 dental paste tramadol 50 mg tablet 50 mg PO TID PRN #90 tab 11/29/18 lorazepam 0.5 mg tablet 0.25 mg PO BID-TID PRN #60 tab 12/04/18 pregabalin 25 mg capsule 25 mg PO BID #60 cap 12/05/18 Allergies Allergy/AdvReac Type Severity Reaction Status Date / Time erythromycin base Allergy Mild Skin Rash Verified 01/10/19 12:57 aminophylline Allergy Unknown unknown Verified 01/10/19 12:57 ethylenediamine Allergy Unknown unknown Verified 01/10/19 12:57 nystatin Allergy Unknown unknown Verified 01/10/19 12:57 pyrilamine Allergy Unknown unknown Verified 01/10/19 12:57 ampicillin Allergy Skin Rash Verified 01/10/19 12:57 zinc Allergy unknown Verified 01/10/19 12:57 clindamycin AdvReac Intermediate upset Verified 01/10/19 12:57 stomach/diarrhea hydrocodone AdvReac Intermediate Nausea Verified 01/10/19 12:57 metformin AdvReac Intermediate Verified 01/10/19 12:57 nitrofurantoin AdvReac Intermediate Diarrhea, Verified 01/10/19 12:57 increased LFT's ciprofloxacin [From Cipro] AdvReac Diarrha Verified 01/10/19 12:57 ciprofloxacin HCl AdvReac Diarrha Verified 01/10/19 12:57 [From Cipro] gabapentin AdvReac Makes her Verified 01/10/19 12:57 feel funny mirtazapine AdvReac Makes room Verified 01/10/19 12:57 spin General Stated Complaint: Dizzy/Sync BERTRAND: 3 Review of Systems All systems reviewed & are unremarkable except as noted in HPI and below Constitutional Constitutional: Denies chills and Denies fever(s) Cardiovascular Cardiovascular: Denies chest pain and Denies dyspnea Respiratory Respiratory: Denies cough and Denies dyspnea Gastrointestinal Gastrointestinal: Denies abdominal pain, Denies nausea and Denies vomiting Musculoskeletal Musculoskeletal: Denies joint swelling Psychiatric Psychiatric: Denies depression [facility] Medical History (Updated 01/10/19 @ 13:42 by Katie Garces DO) Abnormal weight loss (Resolved 01/19/11) now normal Abnormal weight loss (Resolved 01/19/11) Allergic rhinitis (Resolved) Anxiety Anxiety (Chronic) Asthma (Chronic 05/24/12) Bacterial vaginosis (Resolved 04/18/13) Cataract of both eyes (Resolved 01/22/16) Cataracts, bilateral (Resolved) 01/22/16 Cervical pain (neck) (Resolved) 12/06/16 Cholelithiasis without obstruction (Resolved) 05/24/12 s/p cholecystectomy Cholelithiasis without obstruction (Resolved 05/24/12) Chronic duodenal ulcer (Resolved) Chronic duodenal ulcer (Resolved) Chronic gastritis (Resolved) per EGD in 1999 Chronic gastritis (Chronic) Chronic right shoulder pain (Resolved) 12/15/15 Cystocele, midline (Chronic) Depressive disorder (Chronic 11/13/12) Diabetes mellitus (Chronic 05/24/12) poor control; poor insight Diabetes mellitus, type 2 Diarrhea (Acute) Elevated LFTs (Resolved) 06/17/14 Essential hypertension (Chronic 01/01/13) Fatigue (Chronic 08/12/15) Gastroparesis (Chronic 08/17/16) Glaucoma (Chronic 11/06/13) Health education/counseling (Resolved) Hyperlipidemia (Chronic 11/13/12) Hypertension Impaired ambulation (Chronic) Increased frequency of urination (Resolved) 01/18/12 Increased frequency of urination (Chronic 01/18/12) Irritable colon (Chronic) 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) Mammogram abnormal (Resolved) 02/17/95 left Medication management (Chronic 07/31/15) easily and often confused about medications despite several interventions (HH, CCC, BHS, multiple OV) Memory changes (Chronic) Nausea (Inactive) Nausea with vomiting (Resolved) 01/18/12 Neck pain (Chronic 12/06/16) Neurodermatitis (Chronic) Onychomycosis (Chronic 12/06/16) 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 Valente Peptic ulcer (Resolved) 04/20/11 Dr. 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) S/P SURGERY Spinal stenosis, multilevel (Resolved) 05/04/11 Syncope (Resolved 12/05/12) Trigger finger (acquired) (Resolved 06/17/16) Trigger finger, left middle finger (Chronic 07/07/16) Trochanteric bursitis (Resolved 01/21/11) Trochanteric bursitis (Resolved 01/21/11) Urinary incontinence (Chronic 12/06/16) Surgical History Cholecystectomy (~1998) Colonoscopy - MAC (~1998) NEG EGD - MAC (08/03/11) H/O esophagogastroduodenoscopy (Resolved) 03/21/11 Hysterectomy, Laproscopic (~1989) S/P cholecystectomy (Resolved) 03/21/98 S/P laparoscopic hysterectomy (Resolved) 03/21/89 Status post cholecystectomy (Resolved) Status post laparoscopic hysterectomy (Resolved) Social History Smoking/Tobacco Use Status: Never Alcohol Intake: never Drug use: Never Substance use type: does not use Household members: spouse Current gender identity: female What type of physical activity do you participate in: decline to answer Duration: decline to answer Frequency: decline to answer Christelle/Hinduism: Gnosticism Special christelle needs: No Seatbelt use: always Do you feel safe at home: Yes Do you feel safe in your relationship?: Yes Exam Const General: no acute distress Orientation: alert HENMT Head: normal to inspection Ears: external ears normal General nose exam: external nose normal Mouth: moist mucous membranes Eyes General: appearance normal, both eyes and all related structures Neck Neck: normal visual inspection Resp Effort & Inspection: normal respiratory effort and able to speak in complete sentences Cardio Rate: regular rate Skin General skin exam: no rashes or lesions noted Neuro General: alert and oriented x3 Extrem General: normal to inspection Psych Mental Status: mental status grossly normal Course Vital Signs Vital signs: Vital Signs Temperature 35.9 C L 01/12/19 14:22 Pulse 67 01/12/19 14:22 Respiratory Rate 16 01/12/19 14:22 Blood Pressure 126/113 H 01/12/19 14:22 Pulse Oximetry 97 01/12/19 14:22 Temperature 35.9 C L 01/12/19 14:22 Temperature Source Skin 01/12/19 14:22 Pulse 67 01/12/19 14:22 Respiratory Rate 20 01/12/19 14:30 Respiratory Effort 01/12/19 14:33 Respiratory Depth Normal 01/12/19 14:33 Respiratory Pattern Normal 01/12/19 14:33 Blood Pressure 126/113 H 01/12/19 14:22 Blood Pressure Position Sitting 01/12/19 14:22 Pulse Oximetry 98 01/12/19 14:33 Oxygen Delivery Method Room Air 01/12/19 14:33 Oxygen Flow Rate 0 01/12/19 14:33 Pain Level 0 01/12/19 14:22
[2019-01-12] MEDS: Meclizine 12.5 MG TAB PO (14:55)
[2019-01-12 15:14] LABS: Abs Immature Grans 0.03 k/cumm (0.0-0.09); Absolute Basophil Count 0.03 k/cumm (0.0-0.2); Absolute Eosinophil Count 0.21 k/cumm (0.0-0.7); Absolute Lymphocyte Count 3.59 k/cumm (1.2-3.4); Absolute Monocyte Count 0.78 k/cumm (0.11-0.7); Absolute Neutrophil Count 5.14 k/cumm (1.2-6.7); Basophils % 0.3; Eosinophils % 2.1; HCT 39.9 % (36.0-46.0); HGB 13.1 g/dL (12.0-15.5); Immature Grans % 0.3; Lymphocytes % 36.7; Mean Corp. HGB Concentration 32.8 g/dL (32.0-36.0); Mean Corpuscular Hemoglobin 31.2 pg (27.0-33.0); Mean Platelet Volume 10.8 fL (8.0-11.0); Neutrophils % 52.6; Platelet Count 314 x1000/uL (130-400); RBC Distribution Width 13.5 % (11.7-14.6); White Blood Cell Count 9.78 k/cumm (4.4-10.8)
[2019-01-12 15:19] LABS: ALT 20 U/L (14-59); AST 12 U/L (15-37); Albumin 3.6 g/dL (3.4-5.0); Alkaline Phosphatase 77 U/L (46-116); Anion Gap 8.8 mmol/L (3-11); BUN 27 mg/dL (7-18); Bilirubin, Total 0.4 mg/dL (0.2-1.0); CO2 28.2 mmol/L (21.0-32.0); CREATININE 1.03 mg/dL (0.55-1.02); Calcium 9.2 mg/dL (8.5-10.1); Chloride 104 mmol/L (98-107); Estimated GFR 51.17 (mL/min/1.73m2); Glucose 160 mg/dL (70-100); Lipase 68 U/L (73-393); Potassium 3.7 mmol/L (3.5-5.1); Sodium 141 mmol/L (136-145); Total Protein 7.7 g/dL (6.4-8.2); Troponin I < 0.05 ng/mL (0.00-0.06)
[2019-01-12 15:45] LABS: PTT Activated 21.5 sec (21.0-31.4)
--- NOTE | 2019-01-12 16:16 | DI.VRAD_ITS ---
PROCEDURE INFORMATION: Exam: CT Head Without Contrast Exam date and time: 01/12/2019 4:01 PM Clinical history: 83 years old, female; Injury or trauma; Initial encounter; Blunt trauma (contusions or hematomas); Injury details: Fall, head trauma TECHNIQUE: Imaging protocol: Computed tomography of the head without contrast. COMPARISON: No relevant prior studies available. FINDINGS: Brain: There is brain parenchymal atrophy.There is nonspecific white matter disease, likely related to chronic ischemic demyelination. No intracranial hemorrhage is seen. No acute arterial territory stroke is noted. Ventricles: Normal. No ventriculomegaly. Bones/joints: Unremarkable. No acute fracture. Sinuses: Mucosal thickening in the ethmoid sinuses. Mastoid air cells: Visualized mastoid air cells are well aerated. Soft tissues: Unremarkable. IMPRESSION: No intracranial hemorrhage or skull fracture. Dictated and Authenticated by: Martha Vu MD. Ordering:VINNIE Ramirez MD
== END 2019-01-12 16:54 | disposition home or self-care (01) ==
PROVIDERS: Emergency Provider Emergency Medicine; PCP Family Medicine
DX: R42 Dizziness and giddiness (principal); I10 Essential (primary) hypertension; E16.9 Disorder of pancreatic internal secretion, unspecified; Z79.4 Long term (current) use of insulin
CPT/HCPCS: 36415; 80053; 83690; 93005; 99285; 70450; 83735; 84484; 85025; 85610; 85730; 93010

== ENCOUNTER → 2019-01-29 10:38 | Outpatient (BNVA) | payer MEDICARE, SELFPAY | PROVIDERS: PCP Family Medicine; Referring Provider Family Medicine; Visit Provider Student in an Organized Health Care Education/Training Program | DX: M70.61 Trochanteric bursitis, right hip (principal); M25.551 Pain in right hip; I10 Essential (primary) hypertension; E11.9 Type 2 diabetes mellitus without complications; Z79.84 Long term (current) use of oral hypoglycemic drugs | CPT/HCPCS: 99203; 99214 ==

== ENCOUNTER → 2019-02-19 12:51 | Outpatient (BNVA) | payer MEDICARE, SELFPAY | PROVIDERS: PCP Family Medicine; Referring Provider Family Medicine; Visit Provider Student in an Organized Health Care Education/Training Program | DX: M70.61 Trochanteric bursitis, right hip (principal); I10 Essential (primary) hypertension; E11.9 Type 2 diabetes mellitus without complications; Z79.4 Long term (current) use of insulin | CPT/HCPCS: 20610; 99213; J1040 ==

== ENCOUNTER 2019-03-27 11:07 | Outpatient (CLI) | payer MEDICARE, SELFPAY ==
[2019-03-27 14:39] LABS: Hemoglobin A1C 7.3 % (3.8-5.6)
== END 2019-03-27 11:27 ==
PROVIDERS: PCP Family Medicine; Visit Provider Family Medicine
DX: E11.9 Type 2 diabetes mellitus without complications (principal)
CPT/HCPCS: 36415; 83036

== ENCOUNTER 2019-04-25 09:54 | Outpatient (CLI) | payer MEDICARE, SELFPAY ==
[2019-04-25 10:17] LABS: Bilirubin Negative (Negative); Blood Small (Negative); Clarity Cloudy (Clear); Glucose Negative (Negative); Ketones Negative (Negative); Leukocyte Esterase Large (Negative); Nitrite Positive (Negative); Urobilinogen 0.2 EU/dL (Up TO 0.2)
[2019-04-25 10:27] LABS: C & S Indicated? Yes; WBC >50 HPF (0-5)
== END 2019-04-25 10:14 ==
PROVIDERS: PCP Family Medicine; Visit Provider Family Medicine
DX: R35.0 Frequency of micturition (principal)
CPT/HCPCS: 87077; 81003; 81015; 87086; 87186

== ENCOUNTER 2019-05-10 09:25 | Outpatient (CLI) | payer MEDICARE, SELFPAY ==
[2019-05-12 09:57] LABS: Bilirubin Negative (Negative); Blood Small (Negative); Clarity Sl Cloudy (Clear); Glucose Negative (Negative); Ketones Negative (Negative); Leukocyte Esterase Moderate (Negative); Nitrite Negative (Negative); Specific Gravity 1.025 (1.005-1.025); Urobilinogen 0.2 EU/dL (Up TO 0.2)
[2019-05-12 10:07] LABS: Bacteria Many HPF (Negative); C & S Indicated? Yes; WBC >50 HPF (0-5)
== END 2019-05-10 09:45 ==
PROVIDERS: PCP Family Medicine; Visit Provider Family Medicine
DX: R30.0 Dysuria (principal)
CPT/HCPCS: 87077; 81003; 81015; 87086; 87186

== ENCOUNTER 2019-05-14 09:13 | Observation (INO) | payer MEDICARE, SELFPAY ==
[2019-05-14 09:17] VITALS: BP 161/74; PULSE 110; RESP 18; TEMP 36.7; O2SAT 97
[2019-05-14 10:03] LABS: Bilirubin Negative (Negative); Blood Moderate (Negative); Clarity Cloudy (Clear); Glucose 100 mg/dL (Negative); Ketones Negative (Negative); Leukocyte Esterase Moderate (Negative); Nitrite Negative (Negative); Specific Gravity 1.025 (1.005-1.025); Urobilinogen 0.2 EU/dL (Up TO 0.2); pH 5.5 (5-8)
[2019-05-14 10:14] LABS: WBC >50 HPF (0-5)
[2019-05-14 10:15] LABS: Bacteria Many HPF (Negative)
[2019-05-14 10:16] LABS: C & S Indicated? C&S Done As Ordered
[2019-05-14] MEDS: Normal Saline 1,000 ML 1000 ML IV (10:25)
[2019-05-14] MEDS: Normal Saline Flush 10 ML SYR IVP ×2 (10:25→13:41)
[2019-05-14 10:44] LABS: Abs Immature Grans 0.02 k/cumm (0.0-0.09); Absolute Basophil Count 0.02 k/cumm (0.0-0.2); Absolute Eosinophil Count 0.03 k/cumm (0.0-0.7); Absolute Lymphocyte Count 1.64 k/cumm (1.2-3.4); Absolute Monocyte Count 0.61 k/cumm (0.11-0.7); Absolute Neutrophil Count 7.89 k/cumm (1.2-6.7); Basophils % 0.2; Eosinophils % 0.3; HCT 40.4 % (36.0-46.0); HGB 13.2 g/dL (12.0-15.5); Immature Grans % 0.2 %; Lymphocytes % 16.1; Mean Corp. HGB Concentration 32.7 g/dL (32.0-36.0); Mean Corpuscular Hemoglobin 30.8 pg (27.0-33.0); Mean Corpuscular Volume 94.4 fL (80-95); Mean Platelet Volume 10.6 fL (8.0-11.0); Neutrophils % 77.2; Platelet Count 265 x1000/uL (130-400); RBC 4.28 m/cumm (4.00-5.20); RBC Distribution Width 13.8 % (11.7-14.6); White Blood Cell Count 10.21 k/cumm (4.4-10.8)
[2019-05-14 10:59] LABS: ALT 18 U/L (14-59); AST 13 U/L (15-37); Albumin 3.6 g/dL (3.4-5.0); Alkaline Phosphatase 64 U/L (46-116); Anion Gap 9.5 mmol/L (3-11); BUN 23 mg/dL (7-18); Bilirubin, Total 0.5 mg/dL (0.2-1.0); CO2 26.5 mmol/L (21.0-32.0); CREATININE 0.88 mg/dL (0.55-1.02); Calcium 8.9 mg/dL (8.5-10.1); Chloride 103 mmol/L (98-107); Glucose 284 mg/dL (74-106); Potassium 3.9 mmol/L (3.5-5.1); Sodium 139 mmol/L (136-145); Total Protein 7.4 g/dL (6.4-8.2)
[2019-05-14 11:21] VITALS: BP 134/49; PULSE 92; RESP 18; TEMP 36.6; O2SAT 97
--- NOTE | 2019-05-14 11:53 | DI.CT_ITS ---
EXAM: CT ABDOMEN PELVIS W CLINICAL HISTORY: perineal pain TECHNIQUE: CT examination of the abdomen and pelvis was performed with bolus infusion of 73 cc of Om nipaque 350. COMPARISON: CT ABDOMEN PELVIS W from 12/29/2018 FINDINGS: Images obtained through the lung bases are unremarkable. The liver is grossly unremarkable. Mild extrahepatic biliary dilatation noted unchanged from 12/29/2018. Gallbladder has been surgically rem anderson. Spleen is unremarkable in appearance. Pancreas is unremarkable in appearance. Adrenals are unremarkable in appearance. No focal renal abnormality apart from apparent tiny bilater al renal cysts. There is marked wall thickening of the urinary bladder and there appears to be gas within the bladder , possibly interstitial. There is pericystic increased fat attenuation. Mild dilatation of the dist al ureters is noted, no gross obstruction present however. No gross abdominal or pelvic adenopathy. No abdominal aortic aneurysm. No major vascular abnormalit y. No significant abdominal wall hernia. Normal appearance of the appendix. No evidence of diverti culitis or bowel obstruction. Hiatal hernia noted. IMPRESSION: Mildly distended bladder with markedly thickened irregular wall and possible interstitial gas in the bladder wall, the findings are new since prior CT of December 2018 and are highly suggestive of severe acute cystitis. Urologic consultation suggested.
[2019-05-14] MEDS: Omnipaque 350 MG/ML 100 ML BTL IJ (12:08)
[2019-05-14] MEDS: cefTRIAXone 1 GM/50 ML BAG IVPB ×2 (13:41→15:26)
[2019-05-14] MEDS: Phenazopyridine 200 MG TAB (13:50)
[2019-05-14] MEDS: Lidocaine 2% Jelly 6 ML SYR (14:44)
--- NOTE | 2019-05-14 15:36 | W.UROLOGYCON ---
Date of service: 05/14/19 Time of Service: 15:36 Assessment and Plan Assessment and plan (1) Emphysematous cystitis: Status: Acute Assessment and plan: The finding of air within the bladder raises the question of recent instrumentation, some type of fistula to the bladder or emphysematous cystitis with a gas-forming organism. The patient does not give a history of recent instrumentation. She has no bowel symptoms and no CT findings suspicious for a fistula. Klebsiella certainly can be a gas-forming organism. 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 Urine and blood culture have been obtained. It looks like all of her previous cultures have grown Klebsiella, so we will use her most recent culture to guide our antibiotic choices to start. We will place a Manuel catheter to keep her bladder drained and adjust her antibiotics as the cultures come in. History of Present Illness History of Present Illness Chief Complaint: UTI Narrative: This is an 84-year-old woman who has a history of recurrent Klebsiella urinary tract infections. She tells me that she has been compliant with antibiotic treatment in the past. It looks like she was on a course of Keflex as recently as 2 to 3 weeks ago. She comes in to the emergency room with a 3 to 4-week history of abdominal discomfort. Her urine is again suspicious for urinary tract infection. She underwent CT scanning which showed a new finding of air within the bladder. She denied any fevers or chills. She has not had any change in her bowels. She has no prior history of diverticulitis. She has never had any pelvic surgeries as far as she recalls. She has had no C-sections but multiple vaginal deliveries. She is not seen any food particles in the urine. She does not recall noticing pneumaturia. Review of Systems Narrative: No fevers or chills No vision change or dysphasia. Hx Glaucoma Hx Diabetes No shortness of breath, cough or hemoptysis No chest pain or palpitations c/o gastritis. No hepatitis, ulcers, jaundice, diarrhea or constipation No seizures, strokes No bleeding disorders or anemia No gout. Chronic back pain REPLACED BY [facility] Medical History (Updated 05/14/19 @ 15:37 by Gilbert Brito MD) Abnormal weight loss (Resolved 01/19/11) now normal Abnormal weight loss (Resolved 01/19/11) Allergic rhinitis (Resolved) Anxiety Anxiety (Chronic) Asthma (Chronic 05/24/12) Bacterial vaginosis (Resolved 04/18/13) Cataract of both eyes (Resolved 01/22/16) Cataracts, bilateral (Resolved) 01/22/16 Cervical pain (neck) (Resolved) 12/06/16 Cholelithiasis without obstruction (Resolved) 05/24/12 s/p cholecystectomy Cholelithiasis without obstruction (Resolved 05/24/12) Chronic duodenal ulcer (Resolved) Chronic duodenal ulcer (Resolved) Chronic gastritis (Resolved) per EGD in 1999 Chronic gastritis (Chronic) Chronic right shoulder pain (Resolved) 12/15/15 Cystocele, midline (Chronic) Depressive disorder (Chronic 11/13/12) Diabetes mellitus (Chronic 05/24/12) poor control; poor insight Diabetes mellitus, type 2 Diarrhea (Acute) Elevated LFTs (Resolved) 06/17/14 Essential hypertension (Chronic 01/01/13) Fatigue (Chronic 08/12/15) Gastroparesis (Chronic 08/17/16) Glaucoma (Chronic 11/06/13) Health education/counseling (Resolved) Hyperlipidemia (Chronic 11/13/12) Hypertension Impaired ambulation (Chronic) Increased frequency of urination (Resolved) 01/18/12 Increased frequency of urination (Resolved 01/18/12) Irritable colon (Chronic) 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) Mammogram abnormal (Resolved) 02/17/95 left Medication management (Chronic 07/31/15) easily and often confused about medications despite several interventions (HH, CCC, BHS, multiple OV) Memory changes (Chronic) Nausea (Inactive) Nausea with vomiting (Resolved) 01/18/12 Neck pain (Chronic 12/06/16) Neurodermatitis (Chronic) Onychomycosis (Chronic 12/06/16) 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 Valente Peptic ulcer (Resolved) 04/20/11 Dr. Srinivas Zavala Pyloric ulcer associated with Helicobacter pylori (Resolved) 02/17/95 Pyloric ulcer associated with Helicobacter pylori (Resolved 02/17/95) Rectal bleeding (Resolved) 03/15/17 Rectal hemorrhage (Resolved 03/15/17) Rectal prolapse (Resolved) 02/17/15 Rectal prolapse (Resolved 02/17/15) Retinopathy (Chronic) 01/22/16 [facility]; MILD B/L Spinal stenosis (Resolved 05/04/11) Spinal stenosis, lumbar region, 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/17/14) S/P SURGERY Spinal stenosis, multilevel (Resolved) 05/04/11 Syncope (Resolved 12/05/12) Trigger finger (acquired) (Resolved 06/17/16) Trigger finger, left middle finger (Chronic 07/07/16) Trochanteric bursitis (Resolved 01/21/11) Trochanteric bursitis (Resolved) Right hip Injected: 02/19/2019 Urinary incontinence (Chronic 12/06/16) Surgical History Cholecystectomy (~1998) Colonoscopy - MAC (~1998) NEG EGD - MAC (08/03/11) H/O esophagogastroduodenoscopy (Resolved) 03/21/11 Hysterectomy, Laproscopic (~1989) S/P cholecystectomy (Resolved) 03/21/98 S/P laparoscopic hysterectomy (Resolved) 03/21/89 Status post cholecystectomy (Resolved) Status post laparoscopic hysterectomy (Resolved) Social History Smoking/Tobacco Use Status: Never Alcohol Intake: never Drug use: Never Substance use type: does not use Household members: spouse Current gender identity: female What type of physical activity do you participate in: decline to answer Duration: decline to answer Frequency: decline to answer Christelle/Zoroastrian: Zoroastrian Special christelle needs: No Seatbelt use: always Do you feel safe at home: Yes Do you feel safe in your relationship?: Yes Exam Narrative Exam Narrative: She is in no obvious distress. She is cooperative. Her vital signs are documented elsewhere Her chest wall motion is normal. Her abdomen is soft with no peritoneal signs Manuel catheter is in place and is draining clear urine She is awake and alert I reviewed her CT scan. There is no hydronephrosis on either side there is no sign of struvite stones in either kidney. There is a new finding of air within the bladder and within the bladder wall. A urine culture from as recently as 2 days ago is growing Klebsiella sensitive to ceftriaxone. Results Last Vital Signs Temp 36.6 C 05/14/19 11:21 Pulse 92 H 05/14/19 11:21 Resp 18 05/14/19 11:21 BP 134/49 L 05/14/19 11:21 Pulse Ox 97 05/14/19 11:21 Labs Result diagrams: 05/14/19 10:17 05/14/19 10:17 Labs: Laboratory Results - last 24 hr 05/14/19 05/14/19 05/14/19 09:53 10:17 10:17 WBC 10.21 RBC 4.28 Hgb 13.2 Hct 40.4 MCV 94.4 MCH 30.8 MCHC 32.7 RDW 13.8 Plt Count 265 MPV 10.6 Immature Gran % 0.2 Neutrophils % 77.2 Lymphocytes % 16.1 Monocytes % 6.0 Eosinophils % 0.3 Basophils % 0.2 Absolute Neutrophils 7.89 H Absolute Lymphocytes 1.64 Absolute Monocytes 0.61 Absolute Eosinophils 0.03 Absolute Basophils 0.02 Sodium 139 Potassium 3.9 Chloride 103 Carbon Dioxide 26.5 Anion Gap 9.5 BUN 23 H Creatinine 0.88 Estimated GFR/1.73 m2 >= 60.00 Glucose 284 H Calcium 8.9 Total Bilirubin 0.5 AST 13 L ALT 18 Alkaline Phosphatase 64 Total Protein 7.4 Albumin 3.6 Urine Color Yellow Urine Clarity Cloudy Urine pH 5.5 Ur Specific [place] 1.025 Urine Protein 100 H Urine Ketones Negative Urine Blood Moderate H Urine Nitrite Negative Urine Bilirubin Negative Urine Urobilinogen 0.2 Ur Leukocyte Esterase Moderate H Urine RBC Not Applicable Urine WBC >50 H Ur Epithelial Cells Not Applicable Urine Crystals Not Applicable Urine Bacteria Many Urine Mucus Not Applicable Ur Culture Indicated? C&s done as ordered Urine Glucose 100
[2019-05-14 16:37] VITALS: BP 116/51; PULSE 93; RESP 18; TEMP 36; O2SAT 95
--- NOTE | 2019-05-14 17:11 | W.PM.HP.N ---
Date of service: 05/14/19 Time of Service: 17:12 Assessment and Plan Assessment and plan (1) Emphysematous cystitis: Status: Acute Assessment and plan: continue iv Rocephin; check renal ultrasound given her flank pain and the severity of her UTI. consult appreciated. continue w/ light post discharge. Dr. Brito will follow and remove light once her infetion has resolved. (2) Essential hypertension: Status: Chronic Assessment and plan: continue home medications (3) Diabetes mellitus: Status: Chronic Assessment and plan: continue current home meds. Qualifiers: Diabetes mellitus complication status: without complication Diabetes mellitus senior living insulin use: with senior living use Diabetes mellitus type: type 2 Qualified Code(s): E11.9 - Type 2 diabetes mellitus without complications; Z79.4 - senior care (current) use of insulin (4) Spinal stenosis, lumbar region, with neurogenic claudication: Status: Chronic Assessment and plan: Continue home pain regimen History of Present Illness History of Present Illness Chief Complaint: dysuria, perineal pain Narrative: 84-year-old female with history of type 2 diabetes mellitus, essential pretension, chronic back pain due to spinal stenosis presents emergency department with 2 to 3-day history of suprapubic and perineal pain along with dysuria and and increased urinary frequency but no associated hematuria. No associated fevers or rigors. Evaluation the emergency department close CT scan of the abdomen pelvis that demonstrated emphysematous cystitis. Physical examination revealed prolapsed urethra with urethral edema. Light catheter was placed and she was started on IV antibiotics including Rocephin. Blood cultures and urine cultures were obtained. Urology has been consulted to follow and make further recommendations. Patient is now admitted overnight for parenteral antibiotics pending the results of her blood and urine culture. Patient will retain Light catheter upon discharge until her urinary tract infection has improved and the urethral swelling has resolved. Review of Systems All systems reviewed & are unremarkable except as noted in HPI and below Genitourinary Genitourinary: Denies hematuria, Reports urinary frequency, Reports difficulty voiding, Reports dysuria, Reports urinary hesitancy and Reports urinary urgency COUNTS INCLUDE 234 BEDS AT THE [facility] Medical History Abnormal weight loss (Resolved 01/19/11) now normal Abnormal weight loss (Resolved 01/19/11) Allergic rhinitis (Resolved) Anxiety Anxiety (Chronic) Asthma (Chronic 05/24/12) Bacterial vaginosis (Resolved 04/18/13) Cataract of both eyes (Resolved 01/22/16) Cataracts, bilateral (Resolved) 01/22/16 Cervical pain (neck) (Resolved) 12/06/16 Cholelithiasis without obstruction (Resolved) 05/24/12 s/p cholecystectomy Cholelithiasis without obstruction (Resolved 05/24/12) Chronic duodenal ulcer (Resolved) Chronic duodenal ulcer (Resolved) Chronic gastritis (Resolved) per EGD in 1999 Chronic gastritis (Chronic) Chronic right shoulder pain (Resolved) 12/15/15 Cystocele, midline (Chronic) Depressive disorder (Chronic 11/13/12) Diabetes mellitus (Chronic 05/24/12) poor control; poor insight Diabetes mellitus, type 2 Diarrhea (Acute) Elevated LFTs (Resolved) 06/17/14 Essential hypertension (Chronic 01/01/13) Fatigue (Chronic 08/12/15) Gastroparesis (Chronic 08/17/16) Glaucoma (Chronic 11/06/13) Health education/counseling (Resolved) Hyperlipidemia (Chronic 11/13/12) Hypertension Impaired ambulation (Chronic) Increased frequency of urination (Resolved) 01/18/12 Increased frequency of urination (Resolved 01/18/12) Irritable colon (Chronic) 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) Mammogram abnormal (Resolved) 02/17/95 left Medication management (Chronic 07/31/15) easily and often confused about medications despite several interventions (HH, CCC, BHS, multiple OV) Memory changes (Chronic) Nausea (Inactive) Nausea with vomiting (Resolved) 01/18/12 Neck pain (Chronic 12/06/16) Neurodermatitis (Chronic) Onychomycosis (Chronic 12/06/16) 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 Valente Peptic ulcer (Resolved) 04/20/11 Dr. Srinivas Zavala Pyloric ulcer associated with Helicobacter pylori (Resolved) 02/17/95 Pyloric ulcer associated with Helicobacter pylori (Resolved 02/17/95) Rectal bleeding (Resolved) 03/15/17 Rectal hemorrhage (Resolved 03/15/17) Rectal prolapse (Resolved) 02/17/15 Rectal prolapse (Resolved 02/17/15) Retinopathy (Chronic) 01/22/16 [facility]; MILD B/L Spinal stenosis (Resolved 05/04/11) Spinal stenosis, lumbar region, 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/17/14) S/P SURGERY Spinal stenosis, multilevel (Resolved) 05/04/11 Syncope (Resolved 12/05/12) Trigger finger (acquired) (Resolved 06/17/16) Trigger finger, left middle finger (Chronic 07/07/16) Trochanteric bursitis (Resolved 01/21/11) Trochanteric bursitis (Resolved) Right hip Injected: 02/19/2019 Urinary incontinence (Chronic 12/06/16) Surgical History Cholecystectomy (~1998) Colonoscopy - MAC (~1998) NEG EGD - MAC (08/03/11) H/O esophagogastroduodenoscopy (Resolved) 03/21/11 Hysterectomy, Laproscopic (~1989) S/P cholecystectomy (Resolved) 03/21/98 S/P laparoscopic hysterectomy (Resolved) 03/21/89 Status post cholecystectomy (Resolved) Status post laparoscopic hysterectomy (Resolved) Social History Smoking/Tobacco Use Status: Never Alcohol Intake: never Drug use: Never Substance use type: does not use Household members: spouse Current gender identity: female What type of physical activity do you participate in: decline to answer Duration: decline to answer Frequency: decline to answer Christelle/Protestant: Evangelical Special christelle needs: No Seatbelt use: always Do you feel safe at home: Yes Do you feel safe in your relationship?: Yes Meds Home Medications and Allergies Home Medications Medication Instructions Recorded Confirmed Type Lumigan 1 drp OU HS script 10/08/13 05/14/19 History Blood Glucose Test #100 strip 10/03/15 05/08/19 History sennosides-docusate sodium 1 tab PO HS PRN 05/27/16 05/14/19 History [Senna-S] timolol maleate 0.5 ml OPHTHALMIC DAILY #1 script 10/19/16 05/14/19 History acetaminophen [Tylenol Extra 1 - 2 tab PO TID PRN 06/23/17 05/14/19 History Strength] Depend Underwear For Women S-M #90 ea 08/22/17 05/08/19 History Uri Calm 1 tab PO 11/18/17 05/08/19 History insulin syringe needleless 1 mL #90 syringe 05/08/18 05/08/19 Rx pen needle, diabetic 31 gauge x #90 each 05/11/18 05/08/19 Rx 3/ calcium polycarbophil 625 mg tablet 1,250 mg PO DAILY 06/01/18 05/14/19 History insulin detemir U-100 100 unit/mL 17 unit SC QHS ml 08/15/18 05/14/19 History (3 mL) subcutaneous pen cholecalciferol (vitamin D3) 25 2,000 unit PO DAILY cap 08/23/18 05/14/19 History mcg (1,000 unit) capsule linagliptin 5 mg tablet 5 mg PO QAM #90 tab 08/23/18 05/14/19 Rx pantoprazole 40 mg tablet,delayed 40 mg PO DAILY #90 tab-cap 09/04/18 05/14/19 Rx release meclizine 12.5 mg tablet 12.5 mg PO DAILY PRN #90 tab 10/12/18 05/14/19 Rx lorazepam 0.5 mg tablet 0.25 mg PO BID-TID PRN #60 tab 12/04/18 05/14/19 Rx tramadol 50 mg tablet 50 mg PO TID PRN #90 tab 03/27/19 05/14/19 Rx blood-glucose meter #1 each 04/05/19 05/08/19 Rx lancets 33 gauge #100 each 04/05/19 05/08/19 Rx pregabalin 25 mg capsule 25 mg PO BID #60 cap 05/02/19 05/14/19 Rx ondansetron HCl 4 mg tablet 4 mg PO BID PRN #60 tab 05/08/19 05/14/19 Rx blood sugar diagnostic #400 each 05/11/19 Rx cephalexin 250 mg capsule 250 mg PO QID #28 cap 05/14/19 Rx triamcinolone acetonide 1 applic TOPICAL BID 05/14/19 05/14/19 History Allergies Allergy/AdvReac Type Severity Reaction Status Date / Time erythromycin base Allergy Mild Skin Rash Verified 05/14/19 09:26 aminophylline Allergy Unknown unknown Verified 05/14/19 09:26 ethylenediamine Allergy Unknown unknown Verified 05/14/19 09:26 nystatin Allergy Unknown unknown Verified 05/14/19 09:26 pyrilamine Allergy Unknown unknown Verified 05/14/19 09:26 ampicillin Allergy Skin Rash Verified 05/14/19 09:26 zinc Allergy unknown Verified 05/14/19 09:26 clindamycin AdvReac Intermediate upset Verified 05/14/19 09:26 stomach/diarrhea hydrocodone AdvReac Intermediate Nausea Verified 05/14/19 09:26 metformin AdvReac Intermediate Verified 05/14/19 09:26 nitrofurantoin AdvReac Intermediate Diarrhea, Verified 05/14/19 09:26 increased LFT's ciprofloxacin [From Cipro] AdvReac Diarrha Verified 05/14/19 09:26 ciprofloxacin HCl AdvReac Diarrha Verified 05/14/19 09:26 [From Cipro] gabapentin AdvReac Makes her Verified 05/14/19 09:26 feel funny mirtazapine AdvReac Makes room Verified 05/14/19 09:26 spin Exam Narrative Exam Narrative: Elderly female who is alert and oriented person place time circumstance. HEENT unremarkable. Neck supple nontender without JVD no carotid bruits no thyromegaly no lymphadenopathy. Lungs clear to auscultation. Heart regular rate and rhythm without murmur rub or gallop. Abdomen soft nontender NABS no organomegaly no palpable masses. Lower extremities without peripheral cyanosis or edema. Light catheter is in place did not see any edema of the vulva. Results Labs Result diagrams: 05/14/19 10:17 05/14/19 10:17 Labs: Laboratory Results - last 24 hr 05/14/19 05/14/19 05/14/19 09:53 10:17 10:17 WBC 10.21 RBC 4.28 Hgb 13.2 Hct 40.4 MCV 94.4 MCH 30.8 MCHC 32.7 RDW 13.8 Plt Count 265 MPV 10.6 Immature Gran % 0.2 Neutrophils % 77.2 Lymphocytes % 16.1 Monocytes % 6.0 Eosinophils % 0.3 Basophils % 0.2 Absolute Neutrophils 7.89 H Absolute Lymphocytes 1.64 Absolute Monocytes 0.61 Absolute Eosinophils 0.03 Absolute Basophils 0.02 Sodium 139 Potassium 3.9 Chloride 103 Carbon Dioxide 26.5 Anion Gap 9.5 BUN 23 H Creatinine 0.88 Estimated GFR/1.73 m2 >= 60.00 Glucose 284 H Calcium 8.9 Total Bilirubin 0.5 AST 13 L ALT 18 Alkaline Phosphatase 64 Total Protein 7.4 Albumin 3.6 Urine Color Yellow Urine Clarity Cloudy Urine pH 5.5 Ur Specific [place] 1.025 Urine Protein 100 H Urine Ketones Negative Urine Blood Moderate H Urine Nitrite Negative Urine Bilirubin Negative Urine Urobilinogen 0.2 Ur Leukocyte Esterase Moderate H Urine RBC Not Applicable Urine WBC >50 H Ur Epithelial Cells Not Applicable Urine Crystals Not Applicable Urine Bacteria Many Urine Mucus Not Applicable Ur Culture Indicated? C&s done as ordered Urine Glucose 100 Last Vital Signs Temp 36 C L 05/14/19 16:37 Pulse 93 H 05/14/19 16:37 Resp 18 05/14/19 16:37 BP 116/51 L 05/14/19 16:37 Pulse Ox 95 05/14/19 16:37
[2019-05-14] MEDS: Enoxaparin 40 MG/0.4 ML SYR SC (18:38)
[2019-05-14 21:15] VITALS: BP 116/51; PULSE 93; RESP 18; TEMP 36; O2SAT 95
[2019-05-14 23:00] VITALS: BP 114/60; PULSE 89; RESP 18; TEMP 37; O2SAT 96
[2019-05-15] MEDS: Bimatoprost 0.01% 2.5 ML BTL OU (01:06)
--- NOTE | 2019-05-15 07:55 | W.PM.PROGNOT ---
Date of Service Date of service: 05/15/19 Time of Service: 07:56 Assessment and Plan Assessment and plan (1) Emphysematous cystitis: Status: Acute Assessment and plan: Clinically, she is improving. It probably would be best to wait till her final culture and sensitivity are back, but with a urine culture that was positive from just 2 days before admission, I would be okay with switching her to oral Bactrim and allowing her to go home. I am not sure if it is bladder drainage or antibiotic that is helping her original abdominal discomfort, so I think I would discharge her with a catheter for a few more days. She can come into the office later this week to have the catheter removed. Most of these patients will improve with antibiotics alone. There is a very small percentage (less than 10%) who will need some type of bladder debridement if necrosis occurs. Subjective Subjective Interval history since last seen: Chief complaint: Emphysematous cystitis The patient complains of a less abdominal pain today compared to yesterday. She has not run any fevers overnight. She has been able to take in oral medications and nourishment. Exam Narrative Exam Narrative: She looks well. She is actually asking to go home later today since she is unable to sleep in the hospital Her vital signs are documented elsewhere Her urine is grossly clear Her abdomen is soft with no mass Her labs are all still pending this morning Objective Objective Clinical Data: Abnormal lab results 05/14/19 05/14/19 05/14/19 Range/Units 09:53 10:17 10:17 Absolute Neutrophils 7.89 H (1.2-6.7) k/cumm BUN 23 H (7-18) mg/dL Glucose 284 H (74-106) mg/dL AST 13 L (15-37) U/L Urine Protein 100 H (Negative) mg/dL Urine Blood Moderate H (Negative) Ur Leukocyte Esterase Moderate H (Negative) Urine WBC >50 H (0-5) HPF Vital Signs Temperature 37.0 C 05/14/19 23:00 Temperature Source Tympanic 05/14/19 23:00 Pulse 89 05/14/19 23:00 Pulse Rhythm Regular 05/14/19 11:21 Pulse Strength Normal 05/14/19 11:21 Respiratory Rate 18 05/14/19 23:00 Respiratory Effort Non-Labored 05/15/19 03:50 Respiratory Depth Normal 05/15/19 03:50 Respiratory Pattern Normal 05/15/19 03:50 Blood Pressure 114/60 05/14/19 23:00 Blood Pressure Mean 77 05/14/19 11:21 Blood Pressure Position Supine 05/14/19 11:21 Pulse Oximetry 96 05/14/19 23:00 Oxygen Delivery Method Room Air 05/14/19 23:00 Oxygen Flow Rate 0 05/14/19 23:00 Pain Level 2 05/14/19 23:00 Intake & Output 05/14/19 05/14/19 05/15/19 11:59 23:59 11:59 Intake Total 1109 1100 / 1110 Output Total 350 / 350 500 / 500 Balance 750 / 760 -500 / -500 Weight 51.256 kg 50 kg Intake: IV 1109 1100 0 Output: Urine 350 / 350 500 / 500 Other: Urine Color [place] Urine Appearance Clear Clear Stool Size Small Stool Characteristics Soft Formed Laboratory Results WBC 10.21 k/cumm (4.4-10.8) 05/14/19 10:17 RBC 4.28 m/cumm (4.00-5.20) 05/14/19 10:17 Hgb 13.2 g/dL (12.0-15.5) 05/14/19 10:17 Hct 40.4 % (36.0-46.0) 05/14/19 10:17 MCV 94.4 fL (80-95) 05/14/19 10:17 MCH 30.8 pg (27.0-33.0) 05/14/19 10:17 MCHC 32.7 g/dL (32.0-36.0) 05/14/19 10:17 RDW 13.8 % (11.7-14.6) 05/14/19 10:17 Plt Count 265 x1000/uL (130-400) 05/14/19 10:17 MPV 10.6 fL (8.0-11.0) 05/14/19 10:17 Immature Gran % 0.2 % 05/14/19 10:17 Neutrophils % 77.2 05/14/19 10:17 Lymphocytes % 16.1 05/14/19 10:17 Monocytes % 6.0 05/14/19 10:17 Eosinophils % 0.3 05/14/19 10:17 Basophils % 0.2 05/14/19 10:17 Absolute Neutrophils 7.89 k/cumm (1.2-6.7) H 05/14/19 10:17 Absolute Lymphocytes 1.64 k/cumm (1.2-3.4) 05/14/19 10:17 Absolute Monocytes 0.61 k/cumm (0.11-0.7) 05/14/19 10:17 Absolute Eosinophils 0.03 k/cumm (0.0-0.7) 05/14/19 10:17 Absolute Basophils 0.02 k/cumm (0.0-0.2) 05/14/19 10:17 Sodium 139 mmol/L (136-145) 05/14/19 10:17 Potassium 3.9 mmol/L (3.5-5.1) 05/14/19 10:17 Chloride 103 mmol/L (98-107) 05/14/19 10:17 Carbon Dioxide 26.5 mmol/L (21.0-32.0) 05/14/19 10:17 Anion Gap 9.5 mmol/L (3-11) 05/14/19 10:17 BUN 23 mg/dL (7-18) H 05/14/19 10:17 Creatinine 0.88 mg/dL (0.55-1.02) 05/14/19 10:17 Estimated GFR/1.73 m2 >= 60.00 (mL/min/1.73m2) 05/14/19 10:17 Glucose 284 mg/dL (74-106) H 05/14/19 10:17 Calcium 8.9 mg/dL (8.5-10.1) 05/14/19 10:17 Total Bilirubin 0.5 mg/dL (0.2-1.0) 05/14/19 10:17 AST 13 U/L (15-37) L 05/14/19 10:17 ALT 18 U/L (14-59) 05/14/19 10:17 Alkaline Phosphatase 64 U/L (46-116) 05/14/19 10:17 Total Protein 7.4 g/dL (6.4-8.2) 05/14/19 10:17 Albumin 3.6 g/dL (3.4-5.0) 05/14/19 10:17 Urine Color Yellow (Yellow) 05/14/19 09:53 Urine Clarity Cloudy (Clear) 05/14/19 09:53 Urine pH 5.5 (5-8) 05/14/19 09:53 Ur Specific [place] 1.025 (1.005-1.025) 05/14/19 09:53 Urine Protein 100 mg/dL (Negative) H 05/14/19 09:53 Urine Ketones Negative mg/dL (Negative) 05/14/19 09:53 Urine Blood Moderate (Negative) H 05/14/19 09:53 Urine Nitrite Negative (Negative) 05/14/19 09:53 Urine Bilirubin Negative (Negative) 05/14/19 09:53 Urine Urobilinogen 0.2 EU/dL (Up TO 0.2) 05/14/19 09:53 Ur Leukocyte Esterase Moderate (Negative) H 05/14/19 09:53 Urine RBC Not Applicable 05/14/19 09:53 Urine WBC >50 HPF (0-5) H 05/14/19 09:53 Ur Epithelial Cells Not Applicable 05/14/19 09:53 Urine Crystals Not Applicable 05/14/19 09:53 Urine Bacteria Many HPF (Negative) 05/14/19 09:53 Urine Mucus Not Applicable 05/14/19 09:53 Ur Culture Indicated? C&s done as ordered 05/14/19 09:53 Urine Glucose 100 mg/dL (Negative) 05/14/19 09:53
[2019-05-15 07:58] LABS: Abs Immature Grans 0.01 k/cumm (0.0-0.09); Absolute Basophil Count 0.02 k/cumm (0.0-0.2); Absolute Eosinophil Count 0.06 k/cumm (0.0-0.7); Absolute Lymphocyte Count 2.13 k/cumm (1.2-3.4); Absolute Monocyte Count 0.72 k/cumm (0.11-0.7); Absolute Neutrophil Count 5.64 k/cumm (1.2-6.7); Basophils % 0.2; Eosinophils % 0.7; HCT 39.3 % (36.0-46.0); Immature Grans % 0.1 %; Lymphocytes % 24.8; Mean Corp. HGB Concentration 33.1 g/dL (32.0-36.0); Mean Corpuscular Hemoglobin 31.1 pg (27.0-33.0); Mean Platelet Volume 10.9 fL (8.0-11.0); Monocytes % 8.4; Neutrophils % 65.8; Platelet Count 267 x1000/uL (130-400); RBC 4.18 m/cumm (4.00-5.20); White Blood Cell Count 8.58 k/cumm (4.4-10.8)
[2019-05-15 08:13] VITALS: BP 127/68; PULSE 81; RESP 18; TEMP 37.5; O2SAT 98
[2019-05-15 08:17] LABS: BUN 15 mg/dL (7-18); Chloride 106 mmol/L (98-107); Glucose 100 mg/dL (74-106); Potassium 3.9 mmol/L (3.5-5.1); Sodium 142 mmol/L (136-145)
--- NOTE | 2019-05-15 08:35 | ED.GENADUL_ITS ---
Discharge Plan Disposition Patient Disposition: [facility] INPATIENT Condition: Stable Discharge Details Chief Complaint: Urinary Clinical Impression: Cystitis, Weakness Admit Date/Time: 05/14/19 14:43 Admit Provider: Srinivas Davis Attending Provider: Srinivas Davis Primary Care Provider: An Valente ED Provider: Viktoria Gonsales Discharge Data Discharge Date/Time-TO BE ENTERED AT DEPARTURE: 05/14/19 16:20 Medical Decision Making Is an 84-year-old diabetic patient presenting to the emergency room today for dysuria associated with peritoneal pain. who accompanies patient at the bedside who live together reports that patient has had required increasing assistance over the last few weeks. Patient is eating and drinking with out difficulty. Patient's physical exam reveals mild suprapubic discomfort with no associated CVA tenderness. Patient's perineal exam reveals obviously swollen structure in the midline of her perineum consistent with urethral swelling and edema focally. Tenderness noted on exam. Vaginal exam benign, rectal exam reveals nonthrombosed hemorrhoids. No other perineal pain with palpation. Patient's initial vital signs revealed mild hypertension and tachycardia. Afebrile. We will check labs and urinalysis. 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 Patient's urinalysis does reveal obvious UTI at this time patient does have positive leukocyte esterase as well as blood, greater than 50 white blood cells present, many bacteria present. Right lower patient's labs reveal no renal dysfunction, no significant leukocytosis noted or shift. CT reveals EXAM: CT ABDOMEN PELVIS W CLINICAL HISTORY: perineal pain TECHNIQUE: CT examination of the abdomen and pelvis was performed with bolus infusion of 73 cc of Omnipaque 350. COMPARISON: CT ABDOMEN PELVIS W from 12/29/2018 FINDINGS: Images obtained through the lung bases are unremarkable. The liver is grossly unremarkable. Mild extrahepatic biliary dilatation noted unchanged from 12/29/2018. Gallbladder has been surgically removed. Spleen is unremarkable in appearance. Pancreas is unremarkable in appearance. Adrenals are unremarkable in appearance. No focal renal abnormality apart from apparent tiny bilateral renal cysts. There is marked wall thickening of the urinary bladder and there appears to be gas within the bladder, possibly interstitial. There is pericystic increased fat attenuation. Mild dilatation of the distal ureters is noted, no gross obstruction present however. No gross abdominal or pelvic adenopathy. No abdominal aortic aneurysm. No major vascular abnormality. No significant abdominal wall hernia. Normal appearance of the appendix. No evidence of diverticulitis or bowel obstruction. Hiatal hernia noted. IMPRESSION: Mildly distended bladder with markedly thickened irregular wall and possible interstitial gas in the bladder wall, the findings are new since prior CT of December 2018 and are highly suggestive of severe acute cystitis. Urologic consultation suggested. Given patient's bladder distention with gas present as well as obvious dysuria, urinalysis consistent with infection and patient's increase in weakness in the last 2 weeks will provide IV antibiotics based on the source of her infection. Page to Dr. Brito regarding CT findings. We did discuss CT findings as well as physical exam findings including prominent surrounding the urethra. He recommends urine catheterization at this time with Manuel to stay in place for at least 3 days. We discussed inpatient versus outpatient admission. Will admit the patient for IV antibiotics given her weakness and difficulty ambulating at home. We discussed antibiotic choice, Rocephin recommended given patient's previous urine cultures positive for Klebsiella. He will consult on the patient in the hospital. Spoke with hospitalist will accept patient's admission. Patient agrees with plan of care. HPI General Date/Time Provider Initiated Documentation: 05/14/19 09:24 . HPI Narrative: This is a 84-year-old patient presenting for complaints of dysuria. Patient reports dysuria for several weeks worse in the last few days. Patient does report mild lower abdominal pain. Patient reports pain in her perineum is her primary concern at this time. Specifically patient is reporting pain when sitting, difficulty getting comfortable. Patient denies measured fever or chills. Has been eating and drinking without difficulty. Per at the bedside whom she lives with she has required increased assistance in the last 2 weeks to ambulate. Patient reports noting mild blood when urinating. Patient denies back pain. Patient denies cough, difficulty breathing shortness of breath or wheezing. Denies headache or chest pain. Denies dizziness. Patient denies any obvious vaginal discharge or bleeding. No other concerns or complaints at this time. Patient does typically walk with a walker. Patient history is somewhat limited as her answers in general are quite vague and she requires redirecting. Patient is alert and oriented to place person and time. Related Data Home Medications Medication Instructions Recorded Confirmed Janene ibarra OU HS script 10/08/13 05/14/19 Blood Glucose Test #100 strip 10/03/15 05/08/19 sennosides-docusate sodium 1 tab PO HS PRN 05/27/16 05/14/19 [Senna-S] timolol maleate 0.5 ml OPHTHALMIC DAILY #1 script 10/19/16 05/14/19 acetaminophen [Tylenol Extra 1 - 2 tab PO TID PRN 06/23/17 05/14/19 Strength] Depend Underwear For Women S-M #90 ea 08/22/17 05/08/19 Uri Calm 1 tab PO 11/18/17 05/08/19 insulin syringe needleless 1 mL #90 syringe 05/08/18 05/08/19 pen needle, diabetic 31 gauge x #90 each 05/11/18 05/08/1906/03 calcium polycarbophil 625 mg tablet 1,250 mg PO DAILY 06/01/18 05/14/19 insulin detemir U-100 100 unit/mL 17 unit SC QHS ml 08/15/18 05/14/19 (3 mL) subcutaneous pen cholecalciferol (vitamin D3) 25 2,000 unit PO DAILY cap 08/23/18 05/14/19 mcg (1,000 unit) capsule linagliptin 5 mg tablet 5 mg PO QAM #90 tab 08/23/18 05/14/19 pantoprazole 40 mg tablet,delayed 40 mg PO DAILY #90 tab-cap 09/04/18 05/14/19 release meclizine 12.5 mg tablet 12.5 mg PO DAILY PRN #90 tab 10/12/18 05/14/19 lorazepam 0.5 mg tablet 0.25 mg PO BID-TID PRN #60 tab 12/04/18 05/14/19 tramadol 50 mg tablet 50 mg PO TID PRN #90 tab 03/27/19 05/14/19 blood-glucose meter #1 each 04/05/19 05/08/19 lancets 33 gauge #100 each 04/05/19 05/08/19 pregabalin 25 mg capsule 25 mg PO BID #60 cap 05/02/19 05/14/19 ondansetron HCl 4 mg tablet 4 mg PO BID PRN #60 tab 05/08/19 05/14/19 blood sugar diagnostic #400 each 05/11/19 cephalexin 250 mg capsule 250 mg PO QID #28 cap 05/14/19 triamcinolone acetonide 1 applic TOPICAL BID 05/14/19 05/14/19 Previous Rx's Medication Instructions Recorded insulin syringe needleless 1 mL #90 syringe 05/08/18 pen needle, diabetic 31 gauge x #90 each 05/11/1806/03 linagliptin 5 mg tablet 5 mg PO QAM #90 tab 08/23/18 pantoprazole 40 mg tablet,delayed 40 mg PO DAILY #90 tab-cap 09/04/18 release meclizine 12.5 mg tablet 12.5 mg PO DAILY PRN #90 tab 10/12/18 lorazepam 0.5 mg tablet 0.25 mg PO BID-TID PRN #60 tab 12/04/18 tramadol 50 mg tablet 50 mg PO TID PRN #90 tab 03/27/19 blood-glucose meter #1 each 04/05/19 lancets 33 gauge #100 each 04/05/19 pregabalin 25 mg capsule 25 mg PO BID #60 cap 05/02/19 ondansetron HCl 4 mg tablet 4 mg PO BID PRN #60 tab 05/08/19 blood sugar diagnostic #400 each 05/11/19 cephalexin 250 mg capsule 250 mg PO QID #28 cap 05/14/19 Allergies Allergy/AdvReac Type Severity Reaction Status Date / Time erythromycin base Allergy Mild Skin Rash Verified 05/14/19 09:26 aminophylline Allergy Unknown unknown Verified 05/14/19 09:26 ethylenediamine Allergy Unknown unknown Verified 05/14/19 09:26 nystatin Allergy Unknown unknown Verified 05/14/19 09:26 pyrilamine Allergy Unknown unknown Verified 05/14/19 09:26 ampicillin Allergy Skin Rash Verified 05/14/19 09:26 zinc Allergy unknown Verified 05/14/19 09:26 clindamycin AdvReac Intermediate upset Verified 05/14/19 09:26 stomach/diarrhea hydrocodone AdvReac Intermediate Nausea Verified 05/14/19 09:26 metformin AdvReac Intermediate Verified 05/14/19 09:26 nitrofurantoin AdvReac Intermediate Diarrhea, Verified 05/14/19 09:26 increased LFT's ciprofloxacin [From Cipro] AdvReac Diarrha Verified 05/14/19 09:26 ciprofloxacin HCl AdvReac Diarrha Verified 05/14/19 09:26 [From Cipro] gabapentin AdvReac Makes her Verified 05/14/19 09:26 feel funny mirtazapine AdvReac Makes room Verified 05/14/19 09:26 spin General Stated Complaint: Urinary BERTRAND: 3 Review of Systems All systems reviewed & are unremarkable except as noted in HPI and below Constitutional Constitutional: Denies chills, Reports fatigue, Denies fever(s), Denies headache(s), Denies malaise and Reports weakness ENT Ears, Nose, Mouth, and Throat: Denies dizziness, Denies headache(s), Denies nasal congestion and Denies sore throat Cardiovascular Cardiovascular: Denies dyspnea and Denies dyspnea on exertion Respiratory Respiratory: Denies cough, Denies dyspnea, Denies dyspnea on exertion and Denies wheezing Gastrointestinal Gastrointestinal: Denies abdominal pain, Denies diarrhea, Denies nausea and Denies vomiting Genitourinary Genitourinary: Reports hematuria, Reports dysuria and Denies flank pain Neurologic Neurologic: Denies abnormal speech, Denies behavioral changes, Denies dizziness, Denies headache(s) and Reports weakness Psychiatric Psychiatric: Denies behavioral changes Endocrine Endocrine: Reports fatigue Allergic/Immunologic Allergic/Immunologic: Denies wheezing [facility] Medical History Abnormal weight loss (Resolved 01/19/11) now normal Abnormal weight loss (Resolved 01/19/11) Allergic rhinitis (Resolved) Anxiety Anxiety (Chronic) Asthma (Chronic 05/24/12) Bacterial vaginosis (Resolved 04/18/13) Cataract of both eyes (Resolved 01/22/16) Cataracts, bilateral (Resolved) 01/22/16 Cervical pain (neck) (Resolved) 12/06/16 Cholelithiasis without obstruction (Resolved) 05/24/12 s/p cholecystectomy Cholelithiasis without obstruction (Resolved 05/24/12) Chronic duodenal ulcer (Resolved) Chronic duodenal ulcer (Resolved) Chronic gastritis (Resolved) per EGD in 1999 Chronic gastritis (Chronic) Chronic right shoulder pain (Resolved) 12/15/15 Cystocele, midline (Chronic) Depressive disorder (Chronic 11/13/12) Diabetes mellitus (Chronic 05/24/12) poor control; poor insight Diabetes mellitus, type 2 Diarrhea (Acute) Elevated LFTs (Resolved) 06/17/14 Essential hypertension (Chronic 01/01/13) Fatigue (Chronic 08/12/15) Gastroparesis (Chronic 08/17/16) Glaucoma (Chronic 11/06/13) Health education/counseling (Resolved) Hyperlipidemia (Chronic 11/13/12) Hypertension Impaired ambulation (Chronic) Increased frequency of urination (Resolved) 01/18/12 Increased frequency of urination (Resolved 01/18/12) Irritable colon (Chronic) 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) Mammogram abnormal (Resolved) 02/17/95 left Medication management (Chronic 07/31/15) easily and often confused about medications despite several interventions (HH, CCC, BHS, multiple OV) Memory changes (Chronic) Nausea (Inactive) Nausea with vomiting (Resolved) 01/18/12 Neck pain (Chronic 12/06/16) Neurodermatitis (Chronic) Onychomycosis (Chronic 12/06/16) 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 Valente Peptic ulcer (Resolved) 04/20/11 Dr. 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) S/P SURGERY Spinal stenosis, multilevel (Resolved) 05/04/11 Syncope (Resolved 12/05/12) Trigger finger (acquired) (Resolved 06/17/16) Trigger finger, left middle finger (Chronic 07/07/16) Trochanteric bursitis (Resolved 01/21/11) Trochanteric bursitis (Resolved) Right hip Injected: 02/19/2019 Urinary incontinence (Chronic 12/06/16) Surgical History Cholecystectomy (~1998) Colonoscopy - MAC (~1998) NEG EGD - MAC (08/03/11) H/O esophagogastroduodenoscopy (Resolved) 03/21/11 Hysterectomy, Laproscopic (~1989) S/P cholecystectomy (Resolved) 03/21/98 S/P laparoscopic hysterectomy (Resolved) 03/21/89 Status post cholecystectomy (Resolved) Status post laparoscopic hysterectomy (Resolved) Social History Smoking/Tobacco Use Status: Never Alcohol Intake: never Drug use: Never Substance use type: does not use Household members: spouse Current gender identity: female What type of physical activity do you participate in: decline to answer Duration: decline to answer Frequency: decline to answer Christelle/Cheondoism: Yazidi Special christelle needs: No Seatbelt use: always Do you feel safe at home: Yes Do you feel safe in your relationship?: Yes Exam Narrative Exam Narrative: CONST: Alert and oriented. HENMT: Head nomocephalic, normal to inspection. Atraumatic. Hearing grossly normal. TMs appear normal bilaterally, no pharyngeal erythema EYES: General normal appearance. Alignment normal. Eyelids normal. Conjunctiva normal. NECK: Normal visual inspection. FROM. Trachea midline. No Midline tenderness. No cervical lymphadenopathy CHEST: Normal insepection of the chest. RESP: Normal respiratory effort. Speaking full sentences. No cough. No audible wheezing. No retractions. Breath sounds clear, full and equal bilaterally. CARDIO: No JVD. No murmur, tachycardic with regular rhythm GI: Bowel sounds present in all 4 quadrants, abdomen is soft, mild suprapubic tenderness. No peritoneal signs, rebound or guarding. Back: No CVA tenderness noted bilaterally. : Patient has no significant rashes noted externally. Patient has significant tenderness noted surrounding her urethra. Prominence noted of her urethra with swelling surrounding the midline. No obvious uterine or vaginal prolapse. No vaginal discharge. Small external hemorrhoid, nonthrombosed, noted on rectal exam. MUSCULOSKELETAL: Normal Gait. FROM of all extremities. SKIN: Normal. Dry. No rashes. NEURO: Alert and awake. Speech clear. PSYCH: Normal affect. Cooperative. Course Vital Signs Vital signs: Vital Signs Temperature 36.7 C 05/14/19 09:17 Pulse 110 H 05/14/19 09:17 Respiratory Rate 18 05/14/19 09:17 Blood Pressure 161/74 H 05/14/19 09:17 Pulse Oximetry 97 05/14/19 09:17 Temperature 37.5 C 05/15/19 08:13 Temperature Source Tympanic 05/15/19 08:13 Pulse 81 05/15/19 08:13 Pulse Rhythm Regular 05/14/19 11:21 Pulse Strength Normal 05/14/19 11:21 Respiratory Rate 18 05/15/19 08:13 Respiratory Effort Non-Labored 05/15/19 03:50 Respiratory Depth Normal 05/15/19 03:50 Respiratory Pattern Normal 05/15/19 03:50 Blood Pressure 127/68 05/15/19 08:13 Blood Pressure Mean 77 05/14/19 11:21 Blood Pressure Position Supine 05/14/19 11:21 Pulse Oximetry 98 05/15/19 08:13 Oxygen Delivery Method Room Air 05/15/19 08:13 Oxygen Flow Rate 0 05/15/19 08:13 Pain Level 0 05/15/19 08:13 Lab/Test Results Lab/Test Results: 05/14/19 09:53 Urine - Clean Catch Urine Culture - Pending Laboratory Tests Range/Units 05/14/19 05/14/19 05/14/19 09:53 10:17 10:17 WBC (4.4-10.8) k/cumm 10.21 RBC (4.00-5.20) m/cumm 4.28 Hgb (12.0-15.5) g/dL 13.2 Hct (36.0-46.0) % 40.4 MCV (80-95) fL 94.4 MCH (27.0-33.0) pg 30.8 MCHC (32.0-36.0) g/dL 32.7 RDW (11.7-14.6) % 13.8 Plt Count (130-400) x1000/uL 265 MPV (8.0-11.0) fL 10.6 Immature Gran % % 0.2 Neutrophils % 77.2 Lymphocytes % 16.1 Monocytes % 6.0 Eosinophils % 0.3 Basophils % 0.2 Absolute Neutrophils (1.2-6.7) k/cumm 7.89 H Absolute Lymphocytes (1.2-3.4) k/cumm 1.64 Absolute Monocytes (0.11-0.7) k/cumm 0.61 Absolute Eosinophils (0.0-0.7) k/cumm 0.03 Absolute Basophils (0.0-0.2) k/cumm 0.02 Sodium (136-145) mmol/L 139 Potassium (3.5-5.1) mmol/L 3.9 Chloride (98-107) mmol/L 103 Carbon Dioxide (21.0-32.0) mmol/L 26.5 Anion Gap (3-11) mmol/L 9.5 BUN (7-18) mg/dL 23 H Creatinine (0.55-1.02) mg/dL 0.88 Estimated GFR/1.73 m2 (mL/min/1.73m2) >= 60.00 Glucose (74-106) mg/dL 284 H Calcium (8.5-10.1) mg/dL 8.9 Total Bilirubin (0.2-1.0) mg/dL 0.5 AST (15-37) U/L 13 L ALT (14-59) U/L 18 Alkaline Phosphatase (46-116) U/L 64 Total Protein (6.4-8.2) g/dL 7.4 Albumin (3.4-5.0) g/dL 3.6 Urine Color (Yellow) Yellow Urine Clarity (Clear) Cloudy Urine pH (5-8) 5.5 Ur Specific Robbins (1.005-1.025) 1.025 Urine Protein (Negative) mg/dL 100 H Urine Ketones (Negative) mg/dL Negative Urine Blood (Negative) Moderate H Urine Nitrite (Negative) Negative Urine Bilirubin (Negative) Negative Urine Urobilinogen (Up TO 0.2) EU/dL 0.2 Ur Leukocyte Esterase (Negative) Moderate H Urine RBC Not Applicable Urine WBC (0-5) HPF >50 H Ur Epithelial Cells Not Applicable Urine Crystals Not Applicable Urine Bacteria (Negative) HPF Many Urine Mucus Not Applicable Ur Culture Indicated? C&s done as ordered Urine Glucose (Negative) mg/dL 100
[2019-05-15] MEDS: Pantoprazole 40 MG TABCR PO (09:10)
[2019-05-15] MEDS: Pregabalin 25 MG CAP PO (09:11)
[2019-05-15] MEDS: Timolol 0.5% 5 ML BTL OP (09:11)
[2019-05-15] MEDS: Triamcinolone 0.1% CR 15 GM TUBE TP (09:11)
[2019-05-15] MEDS: Cholecalciferol (Vitamin D3) 1,000 UNIT TAB 2000 UNITS PO (09:11)
--- NOTE | 2019-05-15 10:15 | DI.US_ITS ---
EXAM: US RENAL CLINICAL HISTORY: Complicated UTI TECHNIQUE: Ultrasound performed using standard protocol. COMPARISON: Cardiac from 11/12/2016 CT ABDOMEN PELVIS W from 05/14/2019 FINDINGS: Renal ultrasounds performed according to the usual protocol. Kidneys are normal in size and shape an d there is no evidence of a renal mass, nephrolithiasis, or hydronephrosis. Urinary bladder is essentially empty and contains a Manuel catheter. Echogenic foci noted in urinary bladder wall may represent gas, as recent CT showed no evidence of calcification in the anterior blad mack wall. IMPRESSION: No evidence of urinary tract obstruction at this time. DATA REPOSITORY:
[2019-05-15] MEDS: Insulin Aspart 300 UNITS/3 ML PEN SC (12:33)
[2019-05-15] MEDS: Normal Saline Flush 10 ML SYR IVP (15:04)
[2019-05-15] MEDS: cefTRIAXone 2 GM/50 ML BAG IVPB (15:04)
[2019-05-15 15:10] VITALS: BP 124/68; PULSE 79; RESP 18; TEMP 36.4; O2SAT 96
--- NOTE | 2019-05-15 15:26 | W.PM.PROGNOT ---
Date of Service Date of service: 05/15/19 Time of Service: 15:26 Assessment and Plan Assessment and plan (1) Emphysematous cystitis: Status: Acute Assessment and plan: Will discharge home on a 7-day course of Keflex 500 mg p.o. 4 times daily. Patient to continue with Manuel catheter which will be removed on Tuesday when she sees Dr. Brito for follow-up (2) Essential hypertension: Status: Chronic Assessment and plan: continue home medications (3) Diabetes mellitus: Status: Chronic Assessment and plan: continue current home meds. 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 I discussed her case with Dr. Gilbert Brito, urologist. Patient apparently was not on any Keflex recently. I confirmed this with the patient and her as well as after review of her office records. Most recent urine culture prior to admission was taken 2 days prior to admission and the family had not gotten a call with the result and therefore had not started treatment. Urine culture May 12, 2019 demonstrated Klebsiella which was resistant to ampicillin and intermediate resistance to nitrofurantoin but otherwise was sensitive to cephalosporins quinolones Bactrim and Zosyn. Patient is currently doing well on Rocephin therefore medicine transition her over to Keflex 500 mg 4 times daily and discharge her home today. She will follow-up with Dr. Gilbert Brito on Tuesday morning at 8 AM to have her Manuel catheter removed. Exam Narrative Exam Narrative: Elderly female lying in bed in semi-mccarthy position no acute distress. Lungs are clear to auscultation. Heart is regular rate and rhythm. Abdomen soft and nontender with no suprapubic tenderness. Objective Objective Clinical Data: Abnormal lab results 05/15/19 Range/Units 07:30 Absolute Monocytes 0.72 H (0.11-0.7) k/cumm Vital Signs Temperature 37.5 C 05/15/19 08:13 Temperature Source Tympanic 05/15/19 08:13 Pulse 81 05/15/19 08:13 Pulse Rhythm Regular 05/15/19 09:10 Pulse Strength Normal 05/14/19 11:21 Respiratory Rate 18 05/15/19 08:13 Respiratory Effort Non-Labored 05/15/19 09:10 Respiratory Depth Normal 05/15/19 09:10 Respiratory Pattern Normal 05/15/19 09:10 Blood Pressure 127/68 05/15/19 08:13 Blood Pressure Mean 77 05/14/19 11:21 Blood Pressure Position Supine 05/14/19 11:21 Pulse Oximetry 98 05/15/19 08:13 Oxygen Delivery Method Room Air 05/15/19 08:13 Oxygen Flow Rate 0 05/15/19 08:13 Pain Level 0 05/15/19 08:13 Intake & Output 05/14/19 05/15/19 05/15/19 23:59 11:59 23:59 Intake Total 1100 / 1110 370 / 850 480 / 850 Output Total 350 / 350 500 / 500 Balance 750 / 760 -130 / 350 480 / 350 Weight 50 kg 52.1 kg Intake: IV 1100 / 1110 10 / 10 Oral 360 / 840 480 / 840 Output: Urine 350 / 350 500 / 500 Other: Urine Color [place] Urine Appearance Clear Clear Stool Size Small Stool Characteristics Soft Formed Laboratory Results WBC 8.58 k/cumm (4.4-10.8) 05/15/19 07:30 RBC 4.18 m/cumm (4.00-5.20) 05/15/19 07:30 Hgb 13.0 g/dL (12.0-15.5) 05/15/19 07:30 Hct 39.3 % (36.0-46.0) 05/15/19 07:30 MCV 94.0 fL (80-95) 05/15/19 07:30 MCH 31.1 pg (27.0-33.0) 05/15/19 07:30 MCHC 33.1 g/dL (32.0-36.0) 05/15/19 07:30 RDW 14.0 % (11.7-14.6) 05/15/19 07:30 Plt Count 267 x1000/uL (130-400) 05/15/19 07:30 MPV 10.9 fL (8.0-11.0) 05/15/19 07:30 Immature Gran % 0.1 % 05/15/19 07:30 Neutrophils % 65.8 05/15/19 07:30 Lymphocytes % 24.8 05/15/19 07:30 Monocytes % 8.4 05/15/19 07:30 Eosinophils % 0.7 05/15/19 07:30 Basophils % 0.2 05/15/19 07:30 Absolute Neutrophils 5.64 k/cumm (1.2-6.7) 05/15/19 07:30 Absolute Lymphocytes 2.13 k/cumm (1.2-3.4) 05/15/19 07:30 Absolute Monocytes 0.72 k/cumm (0.11-0.7) H 05/15/19 07:30 Absolute Eosinophils 0.06 k/cumm (0.0-0.7) 05/15/19 07:30 Absolute Basophils 0.02 k/cumm (0.0-0.2) 05/15/19 07:30 Sodium 142 mmol/L (136-145) 05/15/19 07:30 Potassium 3.9 mmol/L (3.5-5.1) 05/15/19 07:30 Chloride 106 mmol/L (98-107) 05/15/19 07:30 Carbon Dioxide 26.0 mmol/L (21.0-32.0) 05/15/19 07:30 Anion Gap 10.0 mmol/L (3-11) 05/15/19 07:30 BUN 15 mg/dL (7-18) D 05/15/19 07:30 Creatinine 0.80 mg/dL (0.55-1.02) 05/15/19 07:30 Estimated GFR/1.73 m2 >= 60.00 (mL/min/1.73m2) 05/15/19 07:30 Glucose 100 mg/dL (74-106) D 05/15/19 07:30 Calcium 9.0 mg/dL (8.5-10.1) 05/15/19 07:30 Total Bilirubin 0.5 mg/dL (0.2-1.0) 05/14/19 10:17 AST 13 U/L (15-37) L 05/14/19 10:17 ALT 18 U/L (14-59) 05/14/19 10:17 Alkaline Phosphatase 64 U/L (46-116) 05/14/19 10:17 Total Protein 7.4 g/dL (6.4-8.2) 05/14/19 10:17 Albumin 3.6 g/dL (3.4-5.0) 05/14/19 10:17 Urine Color Yellow (Yellow) 05/14/19 09:53 Urine Clarity Cloudy (Clear) 05/14/19 09:53 Urine pH 5.5 (5-8) 05/14/19 09:53 Ur Specific [place] 1.025 (1.005-1.025) 05/14/19 09:53 Urine Protein 100 mg/dL (Negative) H 05/14/19 09:53 Urine Ketones Negative mg/dL (Negative) 05/14/19 09:53 Urine Blood Moderate (Negative) H 05/14/19 09:53 Urine Nitrite Negative (Negative) 05/14/19 09:53 Urine Bilirubin Negative (Negative) 05/14/19 09:53 Urine Urobilinogen 0.2 EU/dL (Up TO 0.2) 05/14/19 09:53 Ur Leukocyte Esterase Moderate (Negative) H 05/14/19 09:53 Urine RBC Not Applicable 05/14/19 09:53 Urine WBC >50 HPF (0-5) H 05/14/19 09:53 Ur Epithelial Cells Not Applicable 05/14/19 09:53 Urine Crystals Not Applicable 05/14/19 09:53 Urine Bacteria Many HPF (Negative) 05/14/19 09:53 Urine Mucus Not Applicable 05/14/19 09:53 Ur Culture Indicated? C&s done as ordered 05/14/19 09:53 Urine Glucose 100 mg/dL (Negative) 05/14/19 09:53 Reviewed Pertinent PMH: Yes Objective Narrative Objective Narrative: Repeat urine culture from yesterday shows gram-negative rods. Presumably this will will speciate to be the same Klebsiella pneumoniae that was grown on May 12, 2019
[2019-05-15 15:40] VITALS: BP 124/68; PULSE 79; RESP 18; TEMP 36.4; O2SAT 96
--- NOTE | 2019-05-15 16:06 | PDOC.CMIN ---
- If Service Date Differs Date of service: 05/15/19 Time of Service: 16:06 Care Management Initial Assess REASON FOR HOSPITALIZATION:: UTI Urethral Swelling PAST MEDICAL HISTORY/PAST SURGICAL HISTORY:: Medical History . Abnormal weight loss (Resolved 01/19/11). now normal. Abnormal weight loss (Resolved 01/19/11). Allergic rhinitis (Resolved). Anxiety. Anxiety (Chronic). Asthma (Chronic 05/24/12). Bacterial vaginosis (Resolved 04/18/13). Cataract of both eyes (Resolved 01/22/16). Cataracts, bilateral (Resolved). 01/22/16. Cervical pain (neck) (Resolved). 12/06/16. Cholelithiasis without obstruction (Resolved). 05/24/12 s/p cholecystectomy. Cholelithiasis without obstruction (Resolved 05/24/12). Chronic duodenal ulcer (Resolved). Chronic duodenal ulcer (Resolved). Chronic gastritis (Resolved). per EGD in 1999. Chronic gastritis (Chronic). Chronic right shoulder pain (Resolved). 12/15/15. Cystocele, midline (Chronic). Depressive disorder (Chronic 11/13/12). Diabetes mellitus (Chronic 05/24/12). poor control; poor insight. Diabetes mellitus, type 2. Diarrhea (Acute). Elevated LFTs (Resolved). 06/17/14. Essential hypertension (Chronic 01/01/13). Fatigue (Chronic 08/12/15). Gastroparesis (Chronic 08/17/16). Glaucoma (Chronic 11/06/13). Health education/counseling (Resolved). Hyperlipidemia (Chronic 11/13/12). Hypertension. Impaired ambulation (Chronic). Increased frequency of urination (Resolved). 01/18/12. Increased frequency of urination (Resolved 01/18/12). Irritable colon (Chronic). 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 Mammogram abnormal (Resolved). 02/17/95 left. Medication management (Chronic 07/31/15). easily and often confused about medications despite several interventions (HH, CCC, BHS, multiple OV). Memory changes (Chronic). Nausea (Inactive). Nausea with vomiting (Resolved). 01/18/12. Neck pain (Chronic 12/06/16). Neurodermatitis (Chronic). Onychomycosis (Chronic 12/06/16). 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 decreased vision left eye w/ ischemic optic neuropathy 2000; resolved in 2005. Optic neuropathy, ischemic (Resolved). Osteoporosis (Chronic). Other gastritis without bleeding (Resolved). Palliative care patient (Chronic 05/05/16). Followed by Dr. Valente. Peptic ulcer (Resolved). 04/20/11 Dr. Srinivas Zavala. Pyloric ulcer associated with Helicobacter pylori (Resolved). 02/17/95. Pyloric ulcer associated with Helicobacter pylori (Resolved 02/17/95). Rectal bleeding (Resolved). 03/15/17. Rectal hemorrhage (Resolved 03/15/17). Rectal prolapse (Resolved). 02/17/15. Rectal prolapse (Resolved 02/17/15). Retinopathy (Chronic). 01/22/16 [facility]; MILD B/L. Spinal stenosis (Resolved 05/04/11). Spinal stenosis, lumbar region, 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/17/14). S/P SURGERY. Spinal stenosis, multilevel (Resolved). 05/04/11. Syncope (Resolved 12/05/12). Trigger finger (acquired) (Resolved 06/17/16). Trigger finger, left middle finger (Chronic 07/07/16). Trochanteric bursitis (Resolved 01/21/11). Trochanteric bursitis (Resolved). Right hip. Injected: 02/19/2019. Urinary incontinence (Chronic 12/06/16). Surgical History . Cholecystectomy (~1998). Colonoscopy - MAC (~1998). NEG. EGD - MAC (08/03/11). H/O esophagogastroduodenoscopy (Resolved). 03/21/11. Hysterectomy, Laproscopic (~1989). S/P cholecystectomy (Resolved). 03/21/98. S/P laparoscopic hysterectomy (Resolved). 03/21/89. Status post cholecystectomy (Resolved). Status post laparoscopic hysterectomy (Resolved) PREVIOUS FUNCTIONAL STATUS/SOCIAL/FAMILY SUPPORTS:: Vanessa lives in [facility] with her spouse, Sammy. They have a lot of family support nearby- a daughter in [place] and a son in [place]. Vanessa uses a 4WW at home, but is independent with her ADL's at baseline. CURRENT FUNCTIONAL STATUS:: Vanessa was sitting up in bed when CM met with her. She reported that she was feeling better today than when she came in. She stated that Dr. Brito was in this morning to meet with her, as he placed a light catheter to help drain her bladder. She reported that she feels like she might soon. CM asked the [employer] Manager to visit with her, who is known to her. She stated that she would prefer to be home, and was hoping to be discharged today. CM will continue to follow. ADVANCE DIRECTIVES:: [employer] on file. and daughter both listed as agents. Has patient been provided with information about the portal?: No Did the patient sign up for the portal?: No CODE STATUS:: DNR/DNI INSURANCE COVERAGE / FINANCIAL ISSUES:: [facility]/ [employer] assist 100% CURRENT HOME/COMMUNITY SERVICES/EQUIPMENT:: Vanessa has a 4WW, which she uses regularly. She has been seen by Sadaf in the past. PRIMARY CARE PHYSICIAN:: An Valente POTENTIAL DISCHARGE NEEDS:: [facility]utations for further needs, follow up appointments PATIENT/FAMILY EDUCATION NEEDS:: Review discharge instructions regarding activity levels and medications, discussion of self care needs and goals of care. ANTICIPATED BARRIERS TO DISCHARGE:: None identified at this time. TRANSPORTATION:: Vanessa will transport via private vehicle by family. PLAN:: Anticipate Vanessa will return home with no additional services when medically cleared. Her family will drive her home when ready via private vehicle. She will follow up with her PCP and Dr. Brito, as recommended. CM will continue to follow.
--- NOTE | 2019-05-15 16:19 | CHAPLAIN ---
Vanessa was in bed. Her and granddaughter were with her. Vanessa said she didn't sleep at all last night and was hoping to go home today, but will be staying here another night which she wasn't pleased about. Vanessa is a member of [facility] but was not interest having the mutuel clerk called. I will continue to visit and try to catch Vanessa when she is by herself..
--- NOTE | 2019-05-15 17:18 | PDOC.CMDIS ---
- If Service Date Differs Date of service: 05/15/19 Time of Service: 17:19 LACE Index Scoring Tool - Questions: Length of Stay (in days): 2 Acuity (Admit via E.D.?): Yes Comorbidities: Diabetes w/o Complication E.D. Visits: 3 - Answers: Total Score: 9 Risk of Readmission: Low Risk Care Management Discharge Reason for Hospitalization: UTI Urethral Swelling Discharge Plan: Vanessa will return home with no additional services at this time. She will have a light catheter in place, which she will see Dr. Brito for at the end of this week. Her family will drive her home via private vehicle. She will follow up with her PCP, as recommended. Patient/Family Education Needs: Review discharge instructions regarding activity levels and medications, discussion of self care needs as well as goals of care.
--- NOTE | 2019-05-15 17:19 | DSE_ITS ---
DS: Diagnosis Discharge Diagnosis (1) Emphysematous cystitis: Status: Acute Asessment and Plan: Discharged home on Keflex 500 mg p.o. 4 times daily x7 days. Follow-up with Dr. Gilbert Brito on Saturday, May 18, 2019 at 8 AM to have Light catheter removed (2) Essential hypertension: Status: Chronic Asessment and Plan: Continue current home medications. (3) Diabetes mellitus: Status: Chronic Asessment and Plan: Continue current home regimen. (4) Spinal stenosis, lumbar region, with neurogenic claudication: Status: Chronic Asessment and Plan: Continue current home medications. Discharge Plan Disposition Patient Disposition: HOME Condition: Stable Discharge Details Chief Complaint: Urinary Clinical Impression: Cystitis, Weakness Reason For Visit: UTI URETHRAL SWELLING Admit Date/Time: 05/14/19 14:43 Admit Provider: Srinivas Davis Attending Provider: Srinivas Davis Primary Care Provider: An Valente ED Provider: Viktoria Gonsales Hospital Course Hospital Course: 84-year-old female with history of type 2 diabetes mellitus, essential pretension, chronic back pain due to spinal stenosis presents emergency department with 2 to 3-day history of suprapubic and perineal pain along with dysuria and and increased urinary frequency but no associated hematuria. No associated fevers or rigors. Prior to admission patient had a urine culture from May 12, 2019 which had not yet been treated and grew out Klebsiella pneumoniae. Evaluation the emergency department close CT scan of the abdomen pelvis that demonstrated emphysematous cystitis. Blood cultures results are still pending at this time although no growth has been reported. Repeat urine culturs from admission on 05/14 shows GNR similar to her urine culture from 05/12 which demonstrated Klebsiella pneumia which was sensitive to everything tested except ampicillin and only intermediate resistance to nitrofurantoin. Patient was treated w/ Rocephin 2 gm daily. She never had a fever nor leukocytosis. Light catheter was placed in the ER. Dr. Brito felt she should keep the light in place until swelling from her urethra subsided and she has been on antibiotics for a couple of days. The patient wanted to return home NICO[place]. As she remained asymptomatic since the light was placed, and she is responding to the Rocephin, and her prior urine C&S from 05/12 demonstrated sensitivity to cefalozin it was felt that she could go home on oral keflex. She will be discharged on 7 day course of Keflex 500 mg po qid and follow up w/ Dr. Brito on Thursday 05/18 at 8 a.m. Home Meds and New Rx's Prescriptions: New cephalexin [Keflex] 500 mg capsule 500 mg PO QID Qty: 28 RF: 0 Continued calcium polycarbophil 625 mg tablet 1,250 mg PO DAILY RF: 0 Levemir FlexTouch U-100 Insuln 100 unit/mL (3 mL) insulin pen 17 unit SC QHS RF: 0 tramadol 50 mg tablet 50 mg PO TID PRN (Reason: pain) Qty: 90 RF: 4 (DME) blood-glucose meter [[employer] Ultra2 Meter] Kit See Rx Instructions .ROUTE .MEDSUPPLY Qty: 1 RF: 0 (DME) lancets [OneTouch Delica Lancets] 33 gauge misc See Rx Instructions .ROUTE DAILY Qty: 100 RF: 4 Tradjenta 5 mg tablet 5 mg PO QAM Qty: 90 RF: 4 pantoprazole 40 mg tablet,delayed release (DR/EC) 40 mg PO DAILY Qty: 90 RF: 12 Lumigan 5 ML drops 1 drp OU HS RF: 0 (DME) Blood Glucose Test 1 EACH strip 1 ea Miscellaneous DAILY Qty: 100 RF: 12 sennosides-docusate sodium [Senna-S] 1 EACH tablet 1 tab PO HS PRNRF: 0 timolol maleate 15 ML drops 0.5 ml Ophthalmic DAILY Qty: 1 RF: 0 acetaminophen [Tylenol Extra Strength] 500 MG tablet 1 - 2 tab PO TID PRNRF: 0 (DME) Depend Underwear For Women S-M 1 EACH misc 1 ea Miscellaneous TID Qty: 90 RF: 11 uri calm 1 tab PO RF: 0 (DME) insulin syringe needleless [BD Insulin Syringe Slip Tip] 1 mL syringe See Dose Instructions .ROUTE BID Qty: 90 RF: 12 (DME) pen needle, diabetic [BD Ultra-Fine Mini Pen Needle] 31 gauge x 3/16 needle See Dose Instructions .ROUTE .MEDSUPPLY Qty: 90 RF: 4 cholecalciferol (vitamin D3) 1,000 unit capsule 2,000 unit PO DAILY RF: 0 meclizine 12.5 mg tablet 12.5 mg PO DAILY PRN (Reason: dizziness) Qty: 90 RF: 0 lorazepam 0.5 mg tablet 0.25 mg PO BID-TID PRN (Reason: anxiety) Qty: 60 RF: 1 pregabalin [Lyrica] 25 mg capsule 25 mg PO BID Qty: 60 RF: 4 ondansetron HCl 4 mg tablet 4 mg PO BID PRN (Reason: nausea and vomiting) Qty: 60 RF: 0 (DME) OneTouch Ultra Blue Test Strip Strip See Rx Instructions .ROUTE .MEDSUPPLY Qty: 400 RF: 4 triamcinolone acetonide 0.1 % Cream 1 applic TOPICAL BID RF: 0 cephalexin 250 mg capsule 250 mg PO QID Qty: 28 RF: 0 Discharge Instructions Instructions: Urinary Tract Infection in Women (DC), Light Catheter Placement and Care (DC), Urinary Leg Bag (GEN) Stand Alone Forms: Nursing Discharge Form Referrals: Gilbert Brito MD [ [facility] STAFF PHYSICIAN] - 05/18/19 8:00 am (Follow-up with Dr. Gilbert Brito in the specialty clinic on the third floor at [facility]) Activity:: Activity as Tolerated Equipment/Supplies:: No Equipment Needed Diet:: Carb Counting Discharge Orders Discharge Orders: Discharge Order (Routine); Ordered 05/15/19 Ordered By: Srinivas Davis DS: Summary Status at Discharge Functional status at discharge: independent ambulation Overall status at discharge: patient is back to baseline Mental Status: mental status grossly normal Speech and Movement: speech and movement normal Mood: congruent mood Affect: normal affect Time Spent with Patient providing and/or coordinating discharge services: Less than 30 minutes Exam Narrative Exam Narrative: Elderly female lying in bed in semi-mccarthy position no acute distress. Lungs are clear to auscultation. Heart is regular rate and rhythm. Abdomen soft and nontender with no suprapubic tenderness. Light catheter is draining clear yellow urine Psych Mental Status: mental status grossly normal Speech and Movement: speech and movement normal Mood: congruent mood Affect: normal affect DS: Data Vitals/I&O Vitals and I&O: Vital Signs Temperature 36.4 C L 05/15/19 15:10 Temperature Source Tympanic 05/15/19 15:10 Pulse 79 05/15/19 15:10 Pulse Rhythm Regular 05/15/19 09:10 Pulse Strength Normal 05/14/19 11:21 Respiratory Rate 18 05/15/19 15:10 Respiratory Effort Non-Labored 05/15/19 09:10 Respiratory Depth Normal 05/15/19 09:10 Respiratory Pattern Normal 05/15/19 09:10 Blood Pressure 124/68 05/15/19 15:10 Blood Pressure Mean 77 05/14/19 11:21 Blood Pressure Position Supine 05/14/19 11:21 Pulse Oximetry 96 05/15/19 15:10 Oxygen Delivery Method Room Air 05/15/19 15:10 Oxygen Flow Rate 0 05/15/19 15:10 Pain Level 0 05/15/19 15:10 Intake & Output 05/14/19 05/15/19 05/15/19 23:59 11:59 23:59 Intake Total 1100 / 1110 370 / 970 600 / 970 Output Total 350 / 350 500 / 900 400 / 900 Balance 750 / 760 -130 / 70 200 / 70 Weight 50 kg 52.1 kg Intake: IV 1100 / 1110 10 / 10 Oral 360 / 960 600 / 960 Output: Urine 350 / 350 500 / 900 400 / 900 Other: Urine Color [place] Straw [place] Urine Appearance Clear Clear Clear Stool Size Small Stool Characteristics Soft Formed Data Completed and Pending Labs on day of discharge: Labs from last 24 hours 05/15/19 05/15/19 07:30 07:30 WBC 8.58 RBC 4.18 Hgb 13.0 Hct 39.3 MCV 94.0 MCH 31.1 MCHC 33.1 RDW 14.0 Plt Count 267 MPV 10.9 Immature Gran % 0.1 Neutrophils % 65.8 Lymphocytes % 24.8 Monocytes % 8.4 Eosinophils % 0.7 Basophils % 0.2 Absolute Neutrophils 5.64 Absolute Lymphocytes 2.13 Absolute Monocytes 0.72 H Absolute Eosinophils 0.06 Absolute Basophils 0.02 Sodium 142 Potassium 3.9 Chloride 106 Carbon Dioxide 26.0 Anion Gap 10.0 BUN 15 D Creatinine 0.80 Estimated GFR/1.73 m2 >= 60.00 Glucose 100 D Calcium 9.0 05/14/19 15:15 Blood Blood Culture - Pending 05/14/19 15:05 Blood Blood Culture - Pending Preliminary micro results at discharge 05/14/19 09:53 Urine Culture - Preliminary Urine - Clean Catch Gram Negative Jax 05/14/19 15:15 Blood Culture - Pending Blood 05/14/19 15:05 Blood Culture - Pending Blood [facility] Medical History Abnormal weight loss (Resolved 01/19/11) now normal Abnormal weight loss (Resolved 01/19/11) Allergic rhinitis (Resolved) Anxiety Anxiety (Chronic) Asthma (Chronic 05/24/12) Bacterial vaginosis (Resolved 04/18/13) Cataract of both eyes (Resolved 01/22/16) Cataracts, bilateral (Resolved) 01/22/16 Cervical pain (neck) (Resolved) 12/06/16 Cholelithiasis without obstruction (Resolved) 05/24/12 s/p cholecystectomy Cholelithiasis without obstruction (Resolved 05/24/12) Chronic duodenal ulcer (Resolved) Chronic duodenal ulcer (Resolved) Chronic gastritis (Resolved) per EGD in 1999 Chronic gastritis (Chronic) Chronic right shoulder pain (Resolved) 12/15/15 Cystocele, midline (Chronic) Depressive disorder (Chronic 11/13/12) Diabetes mellitus (Chronic 05/24/12) poor control; poor insight Diabetes mellitus, type 2 Diarrhea (Acute) Elevated LFTs (Resolved) 06/17/14 Essential hypertension (Chronic 01/01/13) Fatigue (Chronic 08/12/15) Gastroparesis (Chronic 08/17/16) Glaucoma (Chronic 11/06/13) Health education/counseling (Resolved) Hyperlipidemia (Chronic 11/13/12) Hypertension Impaired ambulation (Chronic) Increased frequency of urination (Resolved) 01/18/12 Increased frequency of urination (Resolved 01/18/12) Irritable colon (Chronic) 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) Mammogram abnormal (Resolved) 02/17/95 left Medication management (Chronic 07/31/15) easily and often confused about medications despite several interventions (HH, CCC, BHS, multiple OV) Memory changes (Chronic) Nausea (Inactive) Nausea with vomiting (Resolved) 01/18/12 Neck pain (Chronic 12/06/16) Neurodermatitis (Chronic) Onychomycosis (Chronic 12/06/16) 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 Valente Peptic ulcer (Resolved) 04/20/11 Dr. Srinivas Zavala Pyloric ulcer associated with Helicobacter pylori (Resolved) 02/17/95 Pyloric ulcer associated with Helicobacter pylori (Resolved 02/17/95) Rectal bleeding (Resolved) 03/15/17 Rectal hemorrhage (Resolved 03/15/17) Rectal prolapse (Resolved) 02/17/15 Rectal prolapse (Resolved 02/17/15) Retinopathy (Chronic) 01/22/16 [facility]; MILD B/L Spinal stenosis (Resolved 05/04/11) Spinal stenosis, lumbar region, 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/17/14) S/P SURGERY Spinal stenosis, multilevel (Resolved) 05/04/11 Syncope (Resolved 12/05/12) Trigger finger (acquired) (Resolved 06/17/16) Trigger finger, left middle finger (Chronic 07/07/16) Trochanteric bursitis (Resolved 01/21/11) Trochanteric bursitis (Resolved) Right hip Injected: 02/19/2019 Urinary incontinence (Chronic 12/06/16) Surgical History Cholecystectomy (~1998) Colonoscopy - MAC (~1998) NEG EGD - MAC (08/03/11) H/O esophagogastroduodenoscopy (Resolved) 03/21/11 Hysterectomy, Laproscopic (~1989) S/P cholecystectomy (Resolved) 03/21/98 S/P laparoscopic hysterectomy (Resolved) 03/21/89 Status post cholecystectomy (Resolved) Status post laparoscopic hysterectomy (Resolved) Social History Smoking/Tobacco Use Status: Never Alcohol Intake: never Drug use: Never Substance use type: does not use Household members: spouse Current gender identity: female What type of physical activity do you participate in: decline to answer Duration: decline to answer Frequency: decline to answer Christelle/Caodaism: Rastafari Special christelle needs: No Seatbelt use: always Do you feel safe at home: Yes Do you feel safe in your relationship?: Yes
== END 2019-05-15 17:26 | disposition home or self-care (01) ==
LOC: ER 15:13 → MS 16:34
PROVIDERS: Admitting Provider Internal Medicine; Emergency Provider Physician Assistant; PCP Family Medicine; Visit Provider Internal Medicine
DX: N30.80 Other cystitis without hematuria (principal); E11.65 Type 2 diabetes mellitus with hyperglycemia; Z79.4 Long term (current) use of insulin; F41.9 Anxiety disorder, unspecified; J45.909 Unspecified asthma, uncomplicated; N81.11 Cystocele, midline; F32.9 Major depressive disorder, single episode, unspecified; I10 Essential (primary) hypertension; E11.43 Type 2 diabetes mellitus with diabetic autonomic (poly)neuropathy; K31.84 Gastroparesis; H40.9 Unspecified glaucoma; E78.5 Hyperlipidemia, unspecified; K58.9 Irritable bowel syndrome, unspecified; G89.29 Other chronic pain; M54.2 Cervicalgia; L28.0 Lichen simplex chronicus; B35.1 Tinea unguium; M81.0 Age-related osteoporosis without current pathological fracture; Z87.11 Personal history of peptic ulcer disease; R32 Unspecified urinary incontinence; E11.319 Type 2 diabetes mellitus with unspecified diabetic retinopathy without macular edema; M48.062 Spinal stenosis, lumbar region with neurogenic claudication
CPT/HCPCS: 36410; 36415; 51702; 76770; 80048; 80053; 87040; 87077; 96361; 96365; 96366; 99213; 99220; 99225; 99232; 99252; 99285; 99315; J1650; 74177; 81003; 81015; 85025; 87086; 87186; 99217; G0378; J0696; J3490

== ENCOUNTER → 2019-05-18 07:38 | Outpatient (BNVA) | payer MEDICARE, SELFPAY | PROVIDERS: PCP Family Medicine; Referring Provider Family Medicine; Visit Provider Urology | DX: N30.80 Other cystitis without hematuria (principal) | CPT/HCPCS: 99213 ==

== ENCOUNTER 2019-05-24 09:11 | Outpatient (REF) | payer MEDICARE, SELFPAY | END 2019-05-24 09:31 | LOC: LBN 09:11 | PROVIDERS: PCP Family Medicine; Visit Provider Urology | DX: N30.80 Other cystitis without hematuria (principal) | CPT/HCPCS: 87086 ==

== ENCOUNTER → 2019-05-25 08:00 | Outpatient (BNVA) | payer MEDICARE, SELFPAY | PROVIDERS: PCP Family Medicine; Referring Provider Family Medicine; Visit Provider Urology | DX: N30.80 Other cystitis without hematuria (principal) | CPT/HCPCS: 99212 ==

== ENCOUNTER 2019-06-05 20:14 | Emergency (ER) | payer MEDICARE, SELFPAY ==
--- NOTE | 2019-06-05 20:20 | ED.GENADUL_ITS ---
Discharge Plan Disposition Patient Disposition: HOME Condition: Fair Discharge Details Chief Complaint: Urinary Clinical Impression: UTI (urinary tract infection) Primary Care Provider: An Valente ED Provider: Roge Domingo Stanley Meds and New Rx's Prescriptions: New cephalexin [Keflex] 500 mg capsule 500 mg PO QID Qty: 20 RF: 0 phenazopyridine [Pyridium] 100 mg tablet 100 mg PO TID PRN (Reason: pain) Qty: 10 RF: 0 Continued calcium polycarbophil 625 mg tablet 1,250 mg PO DAILY RF: 0 tramadol 50 mg tablet 50 mg PO QID PRN (Reason: pain) Qty: 120 RF: 4 Levemir FlexTouch U-100 Insuln 100 unit/mL (3 mL) insulin pen 22 unit SC DAILY Qty: 15 RF: 7 (DME) blood-glucose meter [[employer] Ultra2 Meter] Kit See Rx Instructions .ROUTE .MEDSUPPLY Qty: 1 RF: 0 (DME) lancets [[employer] Delica Lancets] 33 gauge misc See Rx Instructions .ROUTE DAILY Qty: 100 RF: 4 Tradjenta 5 mg tablet 5 mg PO QAM Qty: 90 RF: 4 pantoprazole 40 mg tablet,delayed release (DR/EC) 40 mg PO DAILY Qty: 90 RF: 12 Lumigan 5 ML drops 1 drp OU HS RF: 0 (DME) Blood Glucose Test 1 EACH strip 1 ea Miscellaneous DAILY Qty: 100 RF: 12 sennosides-docusate sodium [Senna-S] 1 EACH tablet 1 tab PO HS PRNRF: 0 timolol maleate 15 ML drops 0.5 ml Ophthalmic DAILY Qty: 1 RF: 0 acetaminophen [Tylenol Extra Strength] 500 MG tablet 1 - 2 tab PO TID PRNRF: 0 (DME) Depend Underwear For Women S-M 1 EACH misc 1 ea Miscellaneous TID Qty: 90 RF: 11 uri calm 1 tab PO RF: 0 (DME) insulin syringe needleless [BD Insulin Syringe Slip Tip] 1 mL syringe See Dose Instructions .ROUTE BID Qty: 90 RF: 12 cholecalciferol (vitamin D3) 1,000 unit capsule 2,000 unit PO DAILY RF: 0 meclizine 12.5 mg tablet 12.5 mg PO DAILY PRN (Reason: dizziness) Qty: 90 RF: 0 lorazepam 0.5 mg tablet 0.25 mg PO BID-TID PRN (Reason: anxiety) Qty: 60 RF: 1 pregabalin [Lyrica] 25 mg capsule 25 mg PO BID Qty: 60 RF: 4 ondansetron HCl 4 mg tablet 4 mg PO BID PRN (Reason: nausea and vomiting) Qty: 60 RF: 0 (DME) OneTouch Ultra Blue Test Strip Strip See Rx Instructions .ROUTE .MEDSUPPLY Qty: 400 RF: 4 (DME) pen needle, diabetic [BD Ultra-Fine Mini Pen Needle] 31 gauge x 3/16 needle See Dose Instructions .ROUTE .MEDSUPPLY Qty: 90 RF: 4 triamcinolone acetonide 0.1 % Cream 1 applic TOPICAL BID RF: 0 Discharge Instructions Instructions: Cephalexin (By mouth), Urinary Tract Infection in Women (ED) Additional Instructions: You have recurrence of your urinary tract infection. Please encourage water intake. You may take the pyridium as prescribed for discomfort with urination. Please take the antibiotic as prescribed, even if symptoms improve please take the entire course. You were given a dose tonight and do not need any more until tomorrow morning. Please call Dr. Brito tomorrow morning to schedule prompt follow up. If you develop fevers/chills, increased pain or other new/worsening symptoms please seek care urgently once again. Referrals: Gilbert Brito MD [ [facility] STAFF PHYSICIAN] - An Valente [place], [place] [Primary Care Provider] - Discharge Data Discharge Date/Time-TO BE ENTERED AT DEPARTURE: 06/06/19 00:10 Medical Decision Making Patient presenting with recurrent UTI symptoms and pain with recent history of emphysematous cystitis. Last urine culture was negative. Typically has Klebsiella UTI. She is not febrile. She has some suprapubic tenderness. IV established and laboratory studies obtained. Urine obtained. Manuel placed and CT scan done. Patient's white count elevated to 13.3. Hemoglobin and platelets are fine. Kidney function is good. Urine does appear to be infected again with blood and leukocyte esterase on dip/red cells and white cells noted on micro. Abdominal pelvic CT scan is negative. No evidence of emphysematous changes in the bladder. Completely decompressed with Manuel. Patient given IV ceftriaxone. Klebsiella is always been sensitive to most everything except ampicillin and sometimes Macrobid. Will restart Keflex that she had been on previously. Will leave Manuel in place for the time being. Refer back to Dr. Brito. Did attempt to reach him prior to discharge, but unavailable. Will attempt to update him in the morning. Vital signs normal at discharge. Discharged in good condition. Medical Records Medical records reviewed: Yes I reviewed the patient's medical records. Lab Data Lab results reviewed: Yes I reviewed the patient's lab results. HPI General Mode of arrival: ambulatory . Date/Time Provider Initiated Documentation: 06/05/19 20:17 . Limitations to Documentation: no limitations . Information obtained by: patient, RN notes reviewed and old records reviewed . HPI Narrative: Patient presents to ED with complaint of dysuria and suprapubic abdominal pain. Onset was the last couple of days with it getting acutely worse tonight. She has prior history of Klebsiella UTI as well as emphysematous cystitis. Most recent urine culture from earlier this month was negative. She has been followed by Dr. Brito after her admission in April for the emphysematous cystitis. She denies any fevers or chills. She denies any back or flank pain. She has had nausea but no vomiting. She denies cough, shortness of breath or chest pain. Related Data Home Medications Medication Instructions Recorded Confirmed Janene ibarra OU HS script 10/08/13 05/22/19 Blood Glucose Test #100 strip 10/03/15 05/22/19 sennosides-docusate sodium 1 tab PO HS PRN 05/27/16 06/05/19 [Senna-S] timolol maleate 0.5 ml OPHTHALMIC DAILY #1 script 10/19/16 06/05/19 acetaminophen [Tylenol Extra 1 - 2 tab PO TID PRN 06/23/17 06/05/19 Strength] Depend Underwear For Women S-M #90 ea 08/22/17 05/22/19 Uri Calm 1 tab PO 11/18/17 05/22/19 insulin syringe needleless 1 mL #90 syringe 05/08/18 05/22/19 calcium polycarbophil 625 mg tablet 1,250 mg PO DAILY 06/01/18 06/05/19 cholecalciferol (vitamin D3) 25 2,000 unit PO DAILY cap 08/23/18 06/05/19 mcg (1,000 unit) capsule linagliptin 5 mg tablet 5 mg PO QAM #90 tab 08/23/18 06/05/19 pantoprazole 40 mg tablet,delayed 40 mg PO DAILY #90 tab-cap 09/04/18 06/05/19 release meclizine 12.5 mg tablet 12.5 mg PO DAILY PRN #90 tab 10/12/18 06/05/19 lorazepam 0.5 mg tablet 0.25 mg PO BID-TID PRN #60 tab 12/04/18 05/22/19 blood-glucose meter #1 each 04/05/19 05/22/19 lancets 33 gauge #100 each 04/05/19 05/22/19 pregabalin 25 mg capsule 25 mg PO BID #60 cap 05/02/19 06/05/19 ondansetron HCl 4 mg tablet 4 mg PO BID PRN #60 tab 05/08/19 06/05/19 blood sugar diagnostic #400 each 05/11/19 05/22/19 triamcinolone acetonide 1 applic TOPICAL BID 05/14/19 06/05/19 insulin detemir U-100 100 unit/mL 22 unit SC DAILY #15 ml 05/22/19 06/05/19 (3 mL) subcutaneous pen tramadol 50 mg tablet 50 mg PO QID PRN #120 tab 05/22/19 06/05/19 pen needle, diabetic 31 gauge x #90 each 05/24/1906/03 cephalexin [Keflex] 500 mg PO QID #20 cap 06/05/19 phenazopyridine [Pyridium] 100 mg PO TID PRN #10 tab 06/05/19 Previous Rx's Medication Instructions Recorded insulin syringe needleless 1 mL #90 syringe 05/08/18 linagliptin 5 mg tablet 5 mg PO QAM #90 tab 08/23/18 pantoprazole 40 mg tablet,delayed 40 mg PO DAILY #90 tab-cap 09/04/18 release meclizine 12.5 mg tablet 12.5 mg PO DAILY PRN #90 tab 10/12/18 lorazepam 0.5 mg tablet 0.25 mg PO BID-TID PRN #60 tab 12/04/18 blood-glucose meter #1 each 04/05/19 lancets 33 gauge #100 each 04/05/19 pregabalin 25 mg capsule 25 mg PO BID #60 cap 05/02/19 ondansetron HCl 4 mg tablet 4 mg PO BID PRN #60 tab 05/08/19 blood sugar diagnostic #400 each 05/11/19 insulin detemir U-100 100 unit/mL 22 unit SC DAILY #15 ml 05/22/19 (3 mL) subcutaneous pen tramadol 50 mg tablet 50 mg PO QID PRN #120 tab 05/22/19 pen needle, diabetic 31 gauge x #90 each 05/24/1906/03 cephalexin [Keflex] 500 mg PO QID #20 cap 06/05/19 phenazopyridine [Pyridium] 100 mg PO TID PRN #10 tab 06/05/19 Allergies Allergy/AdvReac Type Severity Reaction Status Date / Time erythromycin base Allergy Mild Skin Rash Verified 05/22/19 08:34 aminophylline Allergy Unknown unknown Verified 05/22/19 08:34 ethylenediamine Allergy Unknown unknown Verified 05/22/19 08:34 nystatin Allergy Unknown unknown Verified 05/22/19 08:34 pyrilamine Allergy Unknown unknown Verified 05/22/19 08:34 ampicillin Allergy Skin Rash Verified 05/22/19 08:34 zinc Allergy unknown Verified 05/22/19 08:34 clindamycin AdvReac Intermediate upset Verified 05/22/19 08:34 stomach/diarrhea hydrocodone AdvReac Intermediate Nausea Verified 05/22/19 08:34 metformin AdvReac Intermediate Verified 05/22/19 08:34 nitrofurantoin AdvReac Intermediate Diarrhea, Verified 05/22/19 08:34 increased LFT's ciprofloxacin [From Cipro] AdvReac Diarrha Verified 05/22/19 08:34 ciprofloxacin HCl AdvReac Diarrha Verified 05/22/19 08:34 [From Cipro] gabapentin AdvReac Makes her Verified 05/22/19 08:34 feel funny mirtazapine AdvReac Makes room Verified 05/22/19 08:34 spin General BERTRAND: 3 Review of Systems Narrative: As documented in HPI otherwise negative as below. Const: no fever, chills, weakness Resp: no cough, SOB, pleuritic pain CV: no CP, diaphoresis, edema, syncope GI: abdominal pain, nausea; no vomiting, diarrhea Neuro: no headache, numbness, focal weakness, confusion PFSH Medical History Allergic rhinitis (Resolved) Anxiety (Chronic) Asthma (Chronic 05/24/12) Cataracts, bilateral (Resolved) 01/22/16 Cervical pain (neck) (Resolved) 12/06/16 Cholelithiasis without obstruction (Resolved) 05/24/12 s/p cholecystectomy Chronic duodenal ulcer (Resolved) Chronic gastritis (Resolved) per EGD in 1999 Chronic right shoulder pain (Resolved) 12/15/15 Cystocele, midline (Chronic) Depressive disorder (Chronic 11/13/12) Diabetes mellitus (Chronic 05/24/12) poor control; poor insight Elevated LFTs (Resolved) 06/17/14 Fatigue (Chronic 08/12/15) Gastroparesis (Chronic 08/17/16) Glaucoma (Chronic 11/06/13) Health education/counseling (Resolved) Hyperlipidemia (Chronic 11/13/12) Hypertension Impaired ambulation (Chronic) Increased frequency of urination (Resolved) 01/18/12 Mammogram abnormal (Resolved) 02/17/95 left Medication management (Chronic 07/31/15) easily and often confused about medications despite several interventions (HH, CCC, BHS, multiple OV) Memory changes (Chronic) Neurodermatitis (Chronic) Onychomycosis (Chronic 12/06/16) 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 Valente Peptic ulcer (Resolved) 04/20/11 Dr. Srinivas Zavala Pyloric ulcer associated with Helicobacter pylori (Resolved) 02/17/95 Rectal hemorrhage (Resolved 03/15/17) Rectal prolapse (Resolved) 02/17/15 Retinopathy (Chronic) 01/22/16 [facility]; MILD B/L Spinal stenosis, lumbar region, 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/17/14) S/P SURGERY Syncope (Resolved 12/05/12) Trigger finger, left middle finger (Chronic 07/07/16) Trochanteric bursitis (Resolved) Right hip Injected: 02/19/2019 Surgical History Colonoscopy - MAC (~1998) NEG EGD - MAC (05/15/12) S/P cholecystectomy (Resolved) 03/21/98 S/P laparoscopic hysterectomy (Resolved) 03/21/89 Social History Smoking/Tobacco Use Status: Never Alcohol Intake: never Drug use: Never Substance use type: does not use Household members: spouse Current gender identity: female What type of physical activity do you participate in: decline to answer Duration: decline to answer Frequency: decline to answer Christelle/Quaker: [employer] Special christelle needs: No Seatbelt use: always Do you feel safe at home: Yes Do you feel safe in your relationship?: Yes Exam Narrative Exam Narrative: Vitals: Afebrile. Elevated blood pressure and mild tachycardia. Normal room air oxygen saturation. Const: WDWN elderly female in NAD. HEENT: NC/AT. Normal facial exam. Eyes: Normal conjunctiva and sclera. Neck: Supple. Trachea midline. Lungs: Normal respiratory effort. Lungs are clear. Cor: RRR without murmur/gallop. Good radial pulses. GI: Soft and nondistended. Mild suprapubic tenderness without guarding or rebound. Back: No CVAT Neuro: Awake and alert. Normal speech, mentation. Cranial nerves II - XII grossly intact. No gross motor or sensory deficit. Ext: No C/C/E. Skin: Warm and dry without rash.
[2019-06-05 20:23] VITALS: BP 164/77; PULSE 100; RESP 16; TEMP 36.4; O2SAT 100
--- NOTE | 2019-06-05 20:30 | DI.CT_ITS ---
EXAM: CT ABDOMEN PELVIS W CLINICAL HISTORY: low abdominal pain,RECENT EMPHYSEMATOUS CYSTITIS COMPARISON: CT ABDOMEN PELVIS W from 05/14/2019 FINDINGS: CT examination of the abdomen and pelvis was performed with a bolus infusion of 80 cc of Omnipaque 35 0. Images obtained through the lung bases are unremarkable. No free intraperitoneal air is seen. The liver and spleen appear normal. Gallbladder has been surgically removed. No biliary dilatation. Pancreas is atrophic but otherwise unremarkable. Adrenals and kidneys appear normal except for tiny bilateral renal cysts. No urinary tract calcifica tion or obstruction. Urinary bladder is empty and contains a Manuel catheter. No significant abdominal wall hernia. No significant abdominal or pelvic adenopathy. Abdominal aort a is of normal diameter. There appears to be stenosis of the proximal portion of the celiac trunk. Remaining major aortic branch vessels appear intact. Appendix is presumptively visualized and appears normal. No evidence of diverticulitis or bowel obst ruction. [place] Worker structures unremarkable for age. IMPRESSION: No evidence of acute intra-abdominal process.
[2019-06-05 21:14] LABS: Bilirubin Negative (Negative); Blood Large (Negative); Clarity Cloudy (Clear); Glucose Negative (Negative); Ketones Negative (Negative); Leukocyte Esterase Moderate (Negative); Nitrite Negative (Negative); Specific Gravity 1.025 (1.005-1.025); Urobilinogen 0.2 EU/dL (Up TO 0.2)
[2019-06-05 21:19] LABS: Abs Immature Grans 0.03 k/cumm (0.0-0.09); Absolute Eosinophil Count 0.12 k/cumm (0.0-0.7); Absolute Monocyte Count 0.89 k/cumm (0.11-0.7); Basophils % 0.1; Eosinophils % 0.9; HCT 40.5 % (36.0-46.0); HGB 13.1 g/dL (12.0-15.5); Immature Grans % 0.2 %; Lymphocytes % 16.3; Mean Corp. HGB Concentration 32.3 g/dL (32.0-36.0); Mean Corpuscular Hemoglobin 30.9 pg (27.0-33.0); Mean Corpuscular Volume 95.5 fL (80-95); Mean Platelet Volume 10.3 fL (8.0-11.0); Monocytes % 6.7; Neutrophils % 75.8; Platelet Count 252 x1000/uL (130-400); RBC 4.24 m/cumm (4.00-5.20); RBC Distribution Width 13.1 % (11.7-14.6); White Blood Cell Count 13.34 k/cumm (4.4-10.8)
[2019-06-05] MEDS: Phenazopyridine 100 MG TAB PO (21:20)
[2019-06-05] MEDS: Normal Saline Flush 10 ML SYR IVP (21:20)
[2019-06-05] MEDS: Lactated Ringers 1,000 ML 125 ML IV (21:20)
[2019-06-05 21:24] LABS: Bacteria Many HPF (Negative); Epithelial Cells Few HPF (Negative); RBC 20-50 HPF (0-2); WBC >50 HPF (0-5)
[2019-06-05 21:25] LABS: Absolute Basophil Count 0.01 k/cumm (0.0-0.2); Absolute Lymphocyte Count 2.17 k/cumm (1.2-3.4); Absolute Neutrophil Count 10.11 k/cumm (1.2-6.7)
[2019-06-05 21:25] LABS: C & S Indicated? Yes; Casts Negative LPF (Negative); Crystals Negative HPF (Negative); Mucus Negative (Negative)
[2019-06-05 21:39] LABS: Anion Gap 7.4 mmol/L (3-11); BUN 29 mg/dL (7-18); CO2 28.6 mmol/L (21.0-32.0); CREATININE 0.78 mg/dL (0.55-1.02); Chloride 104 mmol/L (98-107); Glucose 128 mg/dL (74-106); Sodium 140 mmol/L (136-145)
[2019-06-05] MEDS: Omnipaque 350 MG/ML 100 ML BTL IJ (22:17)
[2019-06-05] MEDS: Normal Saline - Diluent 50 ML VIAL IV (22:18)
--- NOTE | 2019-06-05 22:42 | DI.VRAD_ITS ---
PROCEDURE INFORMATION: Exam: CT Abdomen And Pelvis With Contrast Exam date and time: 06/05/2019 8:47 PM Age: 84 years old Clinical indication: Lower abdominal pain and pelvic pain; HX recent emphysematous cystitis TECHNIQUE: Imaging protocol: Computed tomography of the abdomen and pelvis with intravenous contrast. Radiation optimization: All CT scans at this facility use at least one of these dose optimization techniques: automated exposure control; mA and/or kV adjustment per patient size (includes targeted exams where dose is matched to clinical indication); or iterative reconstruction. Contrast material: OMNIPAQUE 350; Contrast volume: 80 ml; Contrast route: IV; COMPARISON: CT ABDOMEN PELVIS W 05/14/2019 11:46 AM FINDINGS: Lungs: No acute infiltrate in either lung base. Left lower lobe linear parenchymal scarring or subsegmental collapse / atelectasis. Mediastinum: Small hiatal hernia. Liver: Normal. No mass. Gallbladder and bile ducts: Status post cholecystectomy. No biliary tract dilatation. Pancreas: Normal. No ductal dilation. Spleen: Normal. No splenomegaly. Adrenals: Normal. No mass. Kidneys and ureters: A few hypodensities within the renal cortex bilaterally which are too small to definitively characterize. No hydronephrosis. No perinephric fluid collection. Stomach and bowel: Duodenal diverticulum. No generalized ileus or bowel obstruction. No generalized ileus or obstruction. Appendix: No evidence of appendicitis. Intraperitoneal space: Unremarkable. No free air. No significant fluid collection. Vasculature: Unremarkable. No abdominal aortic aneurysm. Lymph nodes: Unremarkable. No enlarged lymph nodes. Bladder: Manuel catheter tip is located in decompressed urinary bladder lumen. Reproductive: Status post hysterectomy. Bones/joints: Spinal degenerative changes. Levoscoliosis. Soft tissues: Unremarkable. IMPRESSION: 1. No acute intra-abdominal or pelvic process. 2. Manuel catheter tip is located in decompressed urinary bladder lumen. 3. Small hiatal hernia. Dictated and Authenticated by: Fritz Gunter MD. Ordering:MADHAVI Guan MD
[2019-06-05] MEDS: cefTRIAXone 1 GM/50 ML BAG IVPB (23:07)
[2019-06-05 23:39] VITALS: BP 133/57; PULSE 92; TEMP 36.7; O2SAT 97
[2019-06-06] MEDS: Cephalexin 500 MG CAP PO (00:11)
--- NOTE | 2019-06-06 00:44 | NUR.NOTE ---
IV removed. Light changed to leg bag. Pt and educated on use, emptying. Declined large light bag to take home. aware to contact MD Brito in am for f/u. Discharge instructions reviewed with verbal understanding. To exit via wc.
== END 2019-06-06 00:10 | disposition home or self-care (01) ==
PROVIDERS: Emergency Provider Emergency Medicine; PCP Family Medicine
DX: R30.0 Dysuria (principal); N39.0 Urinary tract infection, site not specified; R10.30 Lower abdominal pain, unspecified; R11.0 Nausea; Z87.440 Personal history of urinary (tract) infections; E11.9 Type 2 diabetes mellitus without complications; Z79.4 Long term (current) use of insulin; I10 Essential (primary) hypertension
CPT/HCPCS: 36415; 51702; 80048; 87077; 96361; 96365; 99285; 74177; 81003; 81015; 85025; 87086; 87186; 99284; J0696; J3490

== ENCOUNTER → 2019-06-14 12:04 | Outpatient (BNVA) | payer MEDICARE, SELFPAY | PROVIDERS: PCP Family Medicine; Referring Provider Family Medicine; Visit Provider Urology | DX: N39.0 Urinary tract infection, site not specified (principal); N30.80 Other cystitis without hematuria; Z87.440 Personal history of urinary (tract) infections ==

== ENCOUNTER 2019-07-10 00:30 | Outpatient (CLI) | payer MEDICARE, SELFPAY ==
--- NOTE | 2019-07-10 07:30 | DI.RAD_ITS ---
EXAM: 2D digital imaging was performed. CLINICAL HISTORY: monitor for progression/resolution,emphysematous cystitis. COMPARISON: CT ABDOMEN PELVIS W from 06/05/2019 TECHNIQUE: Supine views of the abdomen performed. FINDINGS: BOWEL GAS PATTERN: Nondistended. There is a moderate quantity of stool. No abnormal air is seen in the region of the bladder. OSSEOUS STRUCTURES: Degenerative changes in the lumbar spine and scoliosis. OTHER FINDINGS: Status post cholecystectomy. IMPRESSION: 1. Nonobstructive bowel gas pattern. 2. No abnormal all gas in the region of the bladder. DATA REPOSITORY: RADIATION DOSE DELIVERED:
== END 2019-07-10 00:50 ==
PROVIDERS: PCP Family Medicine; Visit Provider Urology
DX: N30.80 Other cystitis without hematuria (principal); Z90.49 Acquired absence of other specified parts of digestive tract; K63.89 Other specified diseases of intestine
CPT/HCPCS: 74018

== ENCOUNTER → 2019-08-28 08:16 | Outpatient (BNVA) | payer MEDICARE, SELFPAY | PROVIDERS: PCP Family Medicine; Referring Provider Family Medicine; Visit Provider Nurse Practitioner Gerontology | DX: N30.90 Cystitis, unspecified without hematuria (principal) | CPT/HCPCS: 99213 ==

== ENCOUNTER 2019-08-28 12:52 | Outpatient (REF) | payer MEDICARE, SELFPAY ==
[2019-08-28 13:58] LABS: Bilirubin Negative (Negative); Blood Negative (Negative); Clarity Clear (Clear); Glucose Negative (Negative); Ketones Negative (Negative); Leukocyte Esterase Trace (Negative); Nitrite Negative (Negative); Urobilinogen 0.2 EU/dL (Up TO 0.2); pH 5.5 (5-8)
[2019-08-28 14:09] LABS: Bacteria Few HPF (Negative); C & S Indicated? Yes; Casts Negative LPF (Negative); Crystals Negative HPF (Negative); Epithelial Cells Few HPF (Negative); Mucus Trace (Negative); Other Cells Rare Renal (Negative); RBC Negative HPF (0-2)
== END 2019-08-28 13:12 ==
LOC: LBN 12:52
PROVIDERS: PCP Family Medicine; Visit Provider Family Medicine
DX: R41.0 Disorientation, unspecified (principal); R82.998 Other abnormal findings in urine
CPT/HCPCS: 81003; 81015; 87086

== ENCOUNTER → 2019-09-14 13:01 | Outpatient (BNVA) | payer MEDICARE, SELFPAY | PROVIDERS: PCP Family Medicine; Referring Provider Family Medicine; Visit Provider Urology | DX: N30.80 Other cystitis without hematuria (principal) | CPT/HCPCS: 99213 ==

== ENCOUNTER 2019-10-22 21:03 | Outpatient (REF) | payer MEDICARE, SELFPAY ==
[2019-10-22 21:22] LABS: Bilirubin Negative (Negative); Blood Trace-intact (Negative); Clarity Cloudy (Clear); Glucose Negative (Negative); Ketones Negative (Negative); Leukocyte Esterase Large (Negative); Nitrite Negative (Negative); Specific Gravity 1.025 (1.005-1.025); Urobilinogen 0.2 EU/dL (Up TO 0.2); pH 5.5 (5-8)
[2019-10-22 21:34] LABS: Bacteria Many HPF (Negative); C & S Indicated? Yes; WBC >50 HPF (0-5)
== END 2019-10-22 21:23 ==
LOC: LBN 21:03
PROVIDERS: PCP Family Medicine; Visit Provider Family Medicine
DX: R30.0 Dysuria (principal)
CPT/HCPCS: 87077; 81003; 81015; 87086; 87186

== ENCOUNTER 2019-11-05 15:26 | Outpatient (REF) | payer MEDICARE, SELFPAY ==
[2019-11-05 15:53] LABS: Bilirubin Negative (Negative); Blood Trace-intact (Negative); Clarity Cloudy (Clear); Glucose Negative (Negative); Ketones Negative (Negative); Leukocyte Esterase Large (Negative); Nitrite Negative (Negative); Specific Gravity 1.025 (1.005-1.025); Urobilinogen 0.2 EU/dL (Up TO 0.2); pH 5.5 (5-8)
[2019-11-05 16:02] LABS: Bacteria Many HPF (Negative); C & S Indicated? Yes; Casts Negative LPF (Negative); Crystals Negative HPF (Negative); Epithelial Cells Few HPF (Negative); Mucus Negative (Negative); RBC 0-2 HPF (0-2); WBC >50 HPF (0-5)
== END 2019-11-05 15:46 ==
LOC: NCHCN 15:26
PROVIDERS: PCP Family Medicine; Visit Provider Family Medicine
DX: R30.0 Dysuria (principal)
CPT/HCPCS: 87077; 81003; 81015; 87086; 87186

== ENCOUNTER 2019-11-29 21:22 | Outpatient (REF) | payer MEDICARE, SELFPAY | END 2019-11-29 21:42 | LOC: LBN 21:22 | PROVIDERS: PCP Family Medicine; Visit Provider Nurse Practitioner Family | DX: R32 Unspecified urinary incontinence (principal) | CPT/HCPCS: 87077; 87086 ==

== ENCOUNTER 2019-12-12 13:29 | Outpatient (CLI) | payer MEDICARE, SELFPAY ==
--- NOTE | 2019-12-12 15:15 | DI.RAD_ITS ---
EXAM: XR RIBS RT W PA LAT CHEST CLINICAL HISTORY: fall, W19.XXXA TECHNIQUE: 2D digital imaging was performed. COMPARISON: CR RIGHT SHOULDER COMPLETE from 12/06/2016 FINDINGS: MEDIASTINUM: Normal. HEART: Normal. PULMONARY VASCULATURE: Normal. LUNGS: Clear. PLEURAL SPACE: No pleural effusion or pneumothorax. BONE:Normal. Left convex scoliosis of the thoracolumbar spine. Degenerative changes in the lumbar sp ine. RIGHT RIBS: Normal. OTHER FINDINGS:Surgical clips in the right upper quadrant of the abdomen. IMPRESSION: 1. No acute pulmonary findings. 2. Unremarkable right ribs. DATA REPOSITORY: RADIATION DOSE DELIVERED:
== END 2019-12-12 13:49 ==
PROVIDERS: PCP Family Medicine; Visit Provider Nurse Practitioner Family
DX: M41.85 Other forms of scoliosis, thoracolumbar region (principal); M47.816 Spondylosis without myelopathy or radiculopathy, lumbar region; W19.XXXA Unspecified fall, initial encounter
CPT/HCPCS: 71046; 71100

== ENCOUNTER → 2019-12-18 10:25 | Outpatient (BNVA) | payer MEDICARE, SELFPAY | PROVIDERS: PCP Family Medicine; Referring Provider Family Medicine; Visit Provider Urology | DX: N30.90 Cystitis, unspecified without hematuria (principal); I10 Essential (primary) hypertension; E11.9 Type 2 diabetes mellitus without complications | CPT/HCPCS: 99213 ==

== ENCOUNTER 2019-12-18 12:21 | Outpatient (REF) | payer MEDICARE, SELFPAY | END 2019-12-18 12:41 | LOC: LBN 12:21 | PROVIDERS: PCP Family Medicine; Visit Provider Urology | DX: N39.0 Urinary tract infection, site not specified (principal); N30.80 Other cystitis without hematuria | CPT/HCPCS: 87086 ==

== ENCOUNTER 2020-01-07 21:52 | Outpatient (REF) | payer MEDICARE, SELFPAY ==
[2020-01-07 22:08] LABS: Bilirubin Negative (Negative); Blood Moderate (Negative); Glucose Negative (Negative); Ketones Negative (Negative); Leukocyte Esterase Large (Negative); Nitrite Negative (Negative); Specific Gravity >= 1.030 (1.005-1.025); Urobilinogen 0.2 EU/dL (Up TO 0.2); pH 5.5 (5-8)
[2020-01-07 22:10] LABS: Clarity Cloudy (Clear)
[2020-01-07 22:18] LABS: Bacteria Many HPF (Negative); C & S Indicated? Yes; Casts Negative LPF (Negative); Crystals Negative HPF (Negative); Epithelial Cells Few HPF (Negative); Mucus Negative (Negative); WBC >50 HPF (0-5)
== END 2020-01-07 22:12 ==
LOC: NCHCN 21:52
PROVIDERS: PCP Family Medicine; Visit Provider Family Medicine
DX: R35.0 Frequency of micturition (principal)
CPT/HCPCS: 87077; 81003; 81015; 87086

== ENCOUNTER 2020-01-20 11:53 | Outpatient (REF) | payer MEDICARE, SELFPAY | END 2020-01-20 12:13 | LOC: LBN 11:53 | PROVIDERS: PCP Family Medicine; Visit Provider Nurse Practitioner Family | DX: N39.0 Urinary tract infection, site not specified (principal) | CPT/HCPCS: 87086 ==

== ENCOUNTER 2020-01-29 17:33 | Outpatient (REF) | payer MEDICARE, SELFPAY ==
[2020-01-29 17:03] LABS: Bilirubin Negative (Negative); Blood Negative (Negative); Clarity Clear (Clear); Glucose Negative (Negative); Ketones Negative (Negative); Leukocyte Esterase Trace (Negative); Nitrite Negative (Negative); Specific Gravity 1.025 (1.005-1.025); Urobilinogen 0.2 EU/dL (Up TO 0.2)
[2020-01-29 17:32] LABS: Bacteria Few HPF (Negative); C & S Indicated? Yes; Casts Negative LPF (Negative); Crystals Negative HPF (Negative); Epithelial Cells Few HPF (Negative); Mucus Negative (Negative); RBC Negative HPF (0-2)
[2020-01-29 18:26] LABS: COMMENT (LAB VIEW ONLY) 75.99 mg/dL; Microalb ug/mg Crea 20.5 ug/mg Cr
== END 2020-01-29 17:53 ==
LOC: LBN 17:33
PROVIDERS: PCP Family Medicine; Visit Provider Family Medicine
DX: E11.9 Type 2 diabetes mellitus without complications (principal); Z79.4 Long term (current) use of insulin; N30.90 Cystitis, unspecified without hematuria; R30.0 Dysuria
CPT/HCPCS: 81003; 81015; 82043; 82570; 87086

== ENCOUNTER 2020-02-29 17:50 | Outpatient (REF) | payer MEDICARE, SELFPAY ==
[2020-02-29 15:38] LABS: Bilirubin Negative (Negative); Blood Large (Negative); Clarity Turbid (Clear); Glucose Negative (Negative); Ketones Negative (Negative); Leukocyte Esterase Moderate (Negative); Nitrite Negative (Negative); Specific Gravity >= 1.030 (1.005-1.025); Urobilinogen 0.2 EU/dL (Up TO 0.2)
[2020-02-29 15:46] LABS: C & S Indicated? Yes; WBC >50 HPF (0-5)
== END 2020-02-29 18:10 ==
LOC: NCHCN 17:50
PROVIDERS: PCP Family Medicine; Visit Provider Family Medicine
DX: R32 Unspecified urinary incontinence (principal)
CPT/HCPCS: 87077; 81003; 81015; 87086

== ENCOUNTER → 2020-03-20 11:16 | Outpatient (BNVA) | payer MEDICARE, SELFPAY | PROVIDERS: PCP Family Medicine; Referring Provider Family Medicine; Visit Provider Urology | DX: N30.80 Other cystitis without hematuria (principal) | CPT/HCPCS: 99213 ==

== ENCOUNTER 2020-03-27 14:32 | Outpatient (REF) | payer MEDICARE, SELFPAY ==
[2020-03-28 15:02] LABS: Bilirubin Negative (Negative); Blood Trace-intact (Negative); Clarity Cloudy (Clear); Glucose Negative (Negative); Ketones Negative (Negative); Leukocyte Esterase Moderate (Negative); Nitrite Negative (Negative); Urobilinogen 0.2 EU/dL (Up TO 0.2)
[2020-03-28 15:21] LABS: Bacteria Moderate HPF (Negative); C & S Indicated? Yes; Casts Negative LPF (Negative); Crystals Negative HPF (Negative); Epithelial Cells Negative HPF (Negative); Mucus Negative (Negative); WBC >50 HPF (0-5)
== END 2020-03-27 14:52 ==
LOC: LBN 14:32
PROVIDERS: PCP Family Medicine; Visit Provider Family Medicine
DX: R30.0 Dysuria (principal); R29.898 Other symptoms and signs involving the musculoskeletal system; R32 Unspecified urinary incontinence
CPT/HCPCS: 81003; 81015; 87086

== ENCOUNTER 2020-04-10 11:52 | Outpatient (REF) | payer MEDICARE, SELFPAY ==
[2020-04-10 14:23] LABS: ALT 25 U/L (14-59); AST 17 U/L (15-37); Albumin 3.7 g/dL (3.4-5.0); Alkaline Phosphatase 72 U/L (46-116); Anion Gap 6.5 mmol/L (3-11); BUN 33 mg/dL (7-18); Bilirubin, Total 0.6 mg/dL (0.2-1.0); CO2 29.5 mmol/L (21.0-32.0); CREATININE 0.99 mg/dL (0.55-1.02); Calcium 8.9 mg/dL (8.5-10.1); Chloride 104 mmol/L (98-107); Estimated GFR 53.44 (mL/min/1.73m2); Glucose 113 mg/dL (74-106); Hemoglobin A1C 6.8 % (<5.7); Potassium 4.8 mmol/L (3.5-5.1); Sodium 140 mmol/L (136-145); Total Protein 7.5 g/dL (6.4-8.2)
== END 2020-04-10 12:12 ==
LOC: LBN 11:52
PROVIDERS: PCP Family Medicine; Visit Provider Family Medicine
DX: E11.9 Type 2 diabetes mellitus without complications (principal); I10 Essential (primary) hypertension; K29.50 Unspecified chronic gastritis without bleeding; N30.90 Cystitis, unspecified without hematuria; Z79.4 Long term (current) use of insulin
CPT/HCPCS: 80053; 83036

== ENCOUNTER → 2020-04-18 08:19 | Outpatient (BNVA) | payer MEDICARE, SELFPAY | PROVIDERS: PCP Family Medicine; Referring Provider Family Medicine; Visit Provider Urology | DX: N30.90 Cystitis, unspecified without hematuria (principal) | CPT/HCPCS: 99213 ==

== ENCOUNTER 2020-04-23 21:45 | Outpatient (REF) | payer MEDICARE, SELFPAY | END 2020-04-23 21:46 | disposition home or self-care (01) | LOC: LBN 21:45 | PROVIDERS: PCP Family Medicine; Visit Provider Physician Assistant | DX: R53.83 Other fatigue (principal); R82.998 Other abnormal findings in urine | CPT/HCPCS: 87077; 87086; 87186 ==

== ENCOUNTER 2020-05-08 10:42 | Outpatient (REF) | payer MEDICARE, SELFPAY ==
--- OUTSIDE RECORDS SUMMARY | 2020-05-08 10:46 | XMS_ITS | Encounter Summary ---
:1935 Author Care Team Providers Name Role Phone An Valente Primary Care Provider [phone] Gilbert Brito MD Urologist [phone] Reason for Visit None recorded. Assessment and Plan 1. Snoring Vanessa in general feels like e sleeps very well and feels well rested during the day (despite the fact that she naps most days of the week). She has symptoms of mild snoring and nocturia whic h could indicate an underlying sleep rn acute dialysis ea. I discussed the pathophysiology of obstructive sleep apnea and the potential consequences of untreated JOSE G with Vanessa and her today. I explained how O SA is diagnosed and what takes place dur ing a polysomnogram (her had one in the past so is familiar with it). I briefly covered CPAP therapy so she is aware what the treatment would likely be sh ould she be diagnosed with JOSE G. Her Berl in score is only 1/3 indicating a low likelihood of JOSE G. At this time she wants to think about it before agreeing to a sleep study. She is scheduled for a Covid v accine on 05/02/20 and would not want to come in prior to that. She will get back to use once she has made a decision. She does not drive. I provided greater than 30 minutes in e care of this patient, more than half the time was spent in [id number] counseling. Discussion Note: None recorded.Patient educational handouts: No information available. Plan of Care Reminders Provider Appointments None ? ? recorded. Lab None ? ? recorded. Referral None ? ? recorded. Procedures None ? ? recorded. Surgeries None ? ? recorded. Imaging None ? ? recorded. Medications Name Start Date ? ? BD Ultra-Fine Mini Pen Needle 31 gauge x 06/03 ? buspirone 5 mg tablet ? cefpodoxime 200 mg tablet ? cephalexin 250 mg capsule ? clonazepam 0.5 mg tablet ? diclofenac 1 % topical gel ? estradiol 0.01% (0.1 mg/gram) vaginal cream ? Levemir FlexTouch U-100 Insulin 100 unit/mL (3 mL) sub cutaneous pen ? lisinopril 2.5 mg tablet ? lorazepam 0.5 mg tablet ? Lumigan 0.01 % eye drops ? meclizine 12.5 mg tablet ? ondansetron HCl 4 mg tablet ? pantoprazole 40 mg tablet,delayed release ? pregabalin 25 mg capsule ? sulfamethoxazole 800 mg-trimethoprim 160 mg tablet ? timolol maleate 0.5 % eye drops ? Tradjenta 5 mg tablet ? tramadol 50 mg tablet ? triamcinolone acetonide 0.1 % topical cream ? valacyclovir 1 gram tablet ? Medications Administered None recorded. Vitals Height Weight BMI Blood Pressure 5 ft 2 in 114 lbs 20.9 kg/m2 110/70 mm[Hg] Results Lab Results None recorded. Allergies Code Code System Name Reaction Severity Onset 689 RxNorm Aminophylline ? ? ? 733 RxNorm Ampicillin ? ? ? 2551 RxNorm Ciprofloxacin ? ? ? 2582 RxNorm Clindamycin ? ? ? 4053 RxNorm Erythromycin Base ? ? ? 4158 RxNorm Ethylenediamine ? ? ? 44301 RxNorm Gabapentin ? ? ? 5450 RxNorm Hydrocodone ? ? ? 3099 RxNorm Metformin ? ? ? 15832 RxNorm Mirtazapine ? ? ? Nitrofuran Analogues ? ? ? 5206 RxNorm Nystatin ? ? ? 4149 RxNorm Pyrilamine ? ? ? 98751 RxNorm Zinc ? ? ? Problems Name Status Onset Date Source ? Diabetes Mellitus Active 01/10/2020 ? Hyperlipidemia Active 01/10/2020 ? Anxiety Active 01/10/2020 ? Depressive Disorder Active 01/10/2020 ? Glaucoma Active 01/10/2020 ? Allergic Rhinitis Active 01/10/2020 ? Ulcer of Duodenum Active 01/10/2020 ? Peptic Ulcer Active 01/10/2020 ? Gastritis Active 01/10/2020 ? Cystitis Active 01/10/2020 ? Cystocele Active 01/10/2020 ? Osteoporosis Active 01/10/2020 ? Fatigue Active 01/10/2020 ? Memory Impairment Active 01/10/2020 ? Snoring Active 03/27/2020 ? Procedures None recorded. Vaccine List None recorded. Social History Tobacco Smoking Status Never Smoker Alcohol intake None Live alone or with others? with others Animal exposure? N Are you currently employed? N Blind or serious difficulty seeing Y Not es: GLASSES Hard of hearing or deaf in one or both ears? N Caffeine intake None Functional Status Blind or serious Yes difficulty seeing? 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 History of Present Illness Note: <p>Vanessa Lemus is seen in consultation at the request of Gilbert Brito MD for evaluation of snoring.</p><p>
</p><p>Vanessa has a medical history to include allergic rhinitis, anxiety, cystitis, depression, DM, cataracts, glaucoma, HLD, memory impairment, osteoporosis, spinal stenosis, neurodermatitis, and PUD.</p><p>
</p><p>{ {Vanessa# Patient}} feels {{his her*}} biggest problem with sleep is {{nothing# snoring waking up a lot not feeling rested}}. {{He She*}} typically goes to bed at {{9:30# 9}}pm. It takes {{a few# 5}} minutes to fall asleep. {{He She*}} wakes up {{2# 1 2 3}} times a night to use {{unknown reason pain bathroom*}} and it takes {{ a few# }} minutes to get back to sleep. {{He She *}} gets up at {{7:30# 5 6 7 8}}am to start {{his her*}} day. {{He She*}} does take naps once a day for an hour. {{He She*}} has no disturbances to {{his her*}} sleep. {{He She*}} has never had a sleep study. {{He She*}} sleeps {{alone with someone*}} in a bed.

SLEEP QUALITY: Feels quality of sleep most nights is {{good okay * poor}}.

DAYTIME ALERTNESS: Reports level of alertness most days to be {{alert low energy * sleepy very slee py}}.

PSYCH SYMPTOMS: {{Has* Has not}} noted worsening memory {{ but not# and or}} concentration. {{Does have Denies current problems with *}} irritability, depression,{{and or*}} anxiety. {{Has Has not*}} noted difficulty with calculations.

INSOMNIA SYMPTOMS: {{Does have Does not have*}} an active mind at night when trying to sleep. {{Does have Does not have*}} stressful thoughts interfering with sleep. {{Does Does not*}} watch the clock throughout the night. {{Does Does not*}} worry about getting a good night's sleep.

BREATHING SYMPTOMS: {{Does have * Does not have}} snoring. {{Does have Does not have*}} witnessed apnea. {{Does have Does not have*}} nocturnal choking/gasping/dyspnea.{{Does have * Does not have}} mouth breathing. {{Does have Does not have*}} nasal congestion at night.

& lt;br>MOVEMENT SYMPTOMS: {{Does have Does not have*}} tossing & turning. {{Does have Does not have*}} messy sheets in the morning. {{Does have Does not have*}} leg or arm jerks, kicks or twitches in sleep or prior to falling asleep. {{Does Does not*}} have an aching, restless or crawling feeling in legs at night. {{Does Does not*}} have a hard time keeping legs still when trying to sleep. {{Does * Does not}} have muscle cramps or Mamadou horses in {{legs * arms feet}}. {{Does Does not*}} have sleep walking or talking.

DREAM SYMPTOMS: {{Does have Does not have*}} nightmares often that affect ability to sleep. {{Does have Does not have*}}dreams of suffocating/drowning. {{Does Does not*}} dream shortly after falling asleep. {{Does Does not*}} see dreams in the room even when awake.{{Does Does not*}} see or hear things in the room when falling asleep that aren't really there. {{Does Does not*}} see things in the road when driving that aren't really there. {{Has Has not*}} had someone see then act our their dreams. {{Has Hasnot*}} accidentally injured themselves while sleeping due to own movements/behaviors.

CATAPLEXY SYMPTOMS: {{Does have Does not have*}} feel limp, lose strength, or fall asleep whenvery angry, surprised or laughing. {{Does have Does not have*}} leg, arm or face weakness when upset. {{Has Has not*}} had episodes of being unable to move when waking up which is often frightening.

DRIVING: {{Has Has not*}} fallen asleep or nearly fallen asleep driving. {{Hashad Has not had*}} an accident related to drowsy driving or not paying attention. {{Does Does not*}} forget the last few miles or minutes while driving. {{Has Has not*}} driven out of [place] and crossed center line or gone onto shoulder when driving. {{Has Has not*}} had a passenger tell them they look sleepy when driving.

ESS today 07/12
[place] Questionnaire Score /</p>Review of Systems: ROS as noted in the HPI Review of Systems ? Notes: <p>wakes with dry mouth, lester sea, constipation, nocturia 2/night</p> Physical Exam ? Notes: <p>General: A&O, well groome d, answers questions appropriately, {{over weight obese morbidly obese n ormal weight * thin}}.
HEAD: normocephalic & atraumatic, {{normal appeari ng chin * retrognathia}}.
EYES: non icteric.
NOSE: open nasal passages, septum midline, no polyps or masses.
THROAT/MOUTH: myriam st mucous membranes, modified mallampati score {{1 2 * 3 4}}, tonsils with out hypertrophy. Lateral wall narrowing grade {{1 * 2 3}}. Tongue scallopin g {{is is not*}} noted.
NECK: supple without palpable lymph nodes.
LUNGS: CTA all soni. Good air movement.
CARDIO: RRR wit hout murmur, gallop or thrill.
ABDOMEN: soft and non tender with positive bowel sounds.
MS: Good ROM of all extremities. No cyanosis, clubbing or les ma.
NEURO: A&O. In wheelchair.
PSYCH: Normal mood and affect.
CUTANEOU S: no overt lesions or rashes</p>
--- OUTSIDE RECORDS SUMMARY | 2020-05-08 10:46 | XMS_ITS ---
:1935 Author Care Team Providers Name Role Phone ALIREZA ALISSA Primary Care Provider [phone] MARISA RAMIREZ MD Urologist [phone] Allergies Code Code System Name Reaction Severity Status Onset 689 RxNorm Aminophylline ? ? Active ? 733 RxNorm Ampicillin ? ? Active ? 2551 RxNorm Ciprofloxacin ? ? Active ? 2582 RxNorm Clindamycin ? ? Active ? 4053 RxNorm Erythromycin Base ? ? Active ? 4158 RxNorm Ethylenediamine ? ? Active ? 49842 RxNorm Gabapentin ? ? Active ? 5489 RxNorm Hydrocodone ? ? Active ? 6809 RxNorm Metformin ? ? Active ? 93208 RxNorm Mirtazapine ? ? Active ? Nitrofuran Analogues ? ? Active ? 7597 RxNorm Nystatin ? ? Active ? 9009 RxNorm Pyrilamine ? ? Active ? 00212 RxNorm Zinc ? ? Active ? Medications Name Status Start Date Stop Date ? ? BD Ultra-Fine Mini Pen Needle 31 gauge Active ? Not available x 06/03 buspirone 5 mg tablet Active ? Not availa ble cefpodoxime 200 mg tablet Active ? Not av ailable cephalexin 250 mg capsule Active ? Not av ailable cephalexin 500 mg capsule Completed ? 2020 clonazepam 0.5 mg tablet Active ? Not heath ilable diclofenac 1 % topical gel Active ? Not a vailable estradiol 0.01% (0.1 mg/gram) vaginal Active ? Not available cream Levemir FlexTouch U-100 Insulin 100 Active ? Not available unit/mL (3 mL) subcutaneous pen lisinopril 2.5 mg tablet Active ? Not heath ilable lorazepam 0.5 mg tablet Active ? Not avai lable Lumigan 0.01 % eye drops Active ? Not heath ilable meclizine 12.5 mg tablet Active ? Not heath ilable ondansetron HCl 4 mg tablet Active ? Not available pantoprazole 40 mg tablet,delayed Active ? Not available release pregabalin 25 mg capsule Active ? Not heath ilable sulfamethoxazole 800 mg-trimethoprim Active ? Not available 160 mg tablet timolol maleate 0.5 % eye drops Active ? Not available Tradjenta 5 mg tablet Active ? Not availa ble tramadol 50 mg tablet Active ? Not availa ble triamcinolone acetonide 0.1 % topical Active ? Not available cream valacyclovir 1 gram tablet Active ? Not a vailable Problems Name Status Onset Date Source ? [...] Snoring Active 03/27/2020 ? Procedures None recorded. Results Lab Results None recorded. 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 Social History Tobacco Smoking Status Never Smoker Vaccine List None recorded. Plan of Care Reminders Provider Appointments None ? ? recorded. Lab None ? ? recorded. Referral None ? ? recorded. Procedures None ? ? recorded. Surgeries None ? ? recorded. Imaging None ? ? recorded. Vitals Height Weight BMI Blood Pressure 157.48 cm 51.71 kg 20.9 kg/m2 110/70 mm[Hg]
[2020-05-08 11:03] LABS: Bilirubin Negative (Negative); Blood Moderate (Negative); Clarity Cloudy (Clear); Glucose Negative (Negative); Ketones Negative (Negative); Leukocyte Esterase Moderate (Negative); Nitrite Negative (Negative); Specific Gravity >= 1.030 (1.005-1.025); Urobilinogen 0.2 EU/dL (Up TO 0.2); pH 5.5 (5-8)
[2020-05-08 11:13] LABS: C & S Indicated? Yes
[2020-05-08 11:16] LABS: WBC >50 HPF (0-5)
== END 2020-05-08 10:43 | disposition home or self-care (01) ==
LOC: LBN 10:42
PROVIDERS: PCP Family Medicine; Visit Provider Family Medicine
DX: N39.0 Urinary tract infection, site not specified (principal)
CPT/HCPCS: 87077; 81003; 81015; 87086; 87186

== ENCOUNTER 2020-05-22 20:50 | Outpatient (REF) | payer MEDICARE, SELFPAY ==
[2020-05-22 21:12] LABS: Bilirubin Negative (Negative); Blood Trace-intact (Negative); Clarity Clear (Clear); Glucose Negative (Negative); Ketones Negative (Negative); Leukocyte Esterase Negative (Negative); Nitrite Negative (Negative); Specific Gravity 1.025 (1.005-1.025); Urobilinogen 0.2 EU/dL (Up TO 0.2); pH 6.5 (5-8)
[2020-05-22 21:16] LABS: Bacteria Rare HPF (Negative); Epithelial Cells Few HPF (Negative)
[2020-05-22 21:17] LABS: C & S Indicated? No; Casts Negative LPF (Negative); Crystals Negative HPF (Negative); Mucus Negative (Negative)
== END 2020-05-22 20:51 | disposition home or self-care (01) ==
LOC: LBN 20:50
PROVIDERS: PCP Family Medicine; Visit Provider Family Medicine
DX: R30.0 Dysuria (principal)
CPT/HCPCS: 81003; 81015

== ENCOUNTER 2020-06-09 14:44 | Outpatient (REF) | payer MEDICARE, SELFPAY ==
[2020-06-09 21:59] LABS: Bilirubin Negative (Negative); Blood Small (Negative); Clarity Sl Cloudy (Clear); Glucose 100 mg/dL (Negative); Ketones Negative (Negative); Leukocyte Esterase Negative (Negative); Nitrite Negative (Negative); Specific Gravity 1.025 (1.005-1.025); Urobilinogen 0.2 EU/dL (Up TO 0.2)
[2020-06-09 22:00] LABS: Bacteria Few HPF (Negative); C & S Indicated? No/Sq. Contamination; Casts Negative LPF (Negative); Crystals Negative HPF (Negative); Epithelial Cells Moderate HPF (Negative); Mucus Trace (Negative)
== END 2020-06-09 14:45 | disposition home or self-care (01) ==
LOC: LBN 14:44
PROVIDERS: PCP Family Medicine; Visit Provider Family Medicine
DX: R30.0 Dysuria (principal)
CPT/HCPCS: 81003; 81015

== ENCOUNTER 2020-07-07 21:30 | Outpatient (REF) | payer MEDICARE, SELFPAY ==
[2020-07-07 22:03] LABS: Bilirubin Negative (Negative); Blood Moderate (Negative); Clarity Cloudy (Clear); Glucose Negative (Negative); Ketones Negative (Negative); Leukocyte Esterase Small (Negative); Nitrite Negative (Negative); Specific Gravity >= 1.030 (1.005-1.025); Urobilinogen 0.2 EU/dL (Up TO 0.2); pH 5.5 (5-8)
[2020-07-07 22:14] LABS: WBC >50 HPF (0-5)
[2020-07-07 22:15] LABS: C & S Indicated? Yes
== END 2020-07-07 21:31 | disposition home or self-care (01) ==
LOC: LBN 21:30
PROVIDERS: PCP Family Medicine; Visit Provider Family Medicine
DX: R30.0 Dysuria (principal)
CPT/HCPCS: 87077; 81003; 81015; 87086; 87186

== ENCOUNTER → 2020-07-18 09:10 | Outpatient (BNVA) | payer MEDICARE, SELFPAY | PROVIDERS: PCP Family Medicine; Visit Provider Urology | DX: N39.0 Urinary tract infection, site not specified (principal); B96.89 Other specified bacterial agents as the cause of diseases classified elsewhere | CPT/HCPCS: 99213; 99214 ==

== ENCOUNTER → 2020-08-01 10:19 | Outpatient (BNVA) | payer MEDICARE, SELFPAY | PROVIDERS: PCP Family Medicine; Referring Provider Family Medicine; Visit Provider Urology | DX: N39.0 Urinary tract infection, site not specified (principal); B96.89 Other specified bacterial agents as the cause of diseases classified elsewhere; R53.83 Other fatigue | CPT/HCPCS: 81003; 99211 ==

== ENCOUNTER 2020-08-01 15:42 | Outpatient (REF) | payer MEDICARE, SELFPAY | END 2020-08-01 15:43 | disposition home or self-care (01) | LOC: LBN 15:42 | PROVIDERS: PCP Family Medicine; Visit Provider Urology | DX: N39.0 Urinary tract infection, site not specified (principal); R53.83 Other fatigue | CPT/HCPCS: 87077; 87086; 87186 ==

== ENCOUNTER → 2020-08-27 12:44 | Outpatient (BNVA) | payer MEDICARE, SELFPAY | PROVIDERS: PCP Family Medicine; Referring Provider Family Medicine; Visit Provider Nurse Practitioner Gerontology | DX: R32 Unspecified urinary incontinence (principal); N39.0 Urinary tract infection, site not specified | CPT/HCPCS: 81003; 99214 ==

== ENCOUNTER 2020-08-27 14:30 | Outpatient (REF) | payer MEDICARE, SELFPAY | END 2020-08-27 14:31 | disposition home or self-care (01) | LOC: LBN 14:30 | PROVIDERS: PCP Family Medicine; Visit Provider Urology | DX: N39.0 Urinary tract infection, site not specified (principal) | CPT/HCPCS: 87077; 87086; 87186 ==

== ENCOUNTER → 2020-09-17 08:46 | Outpatient (BNVA) | payer MEDICARE, SELFPAY | PROVIDERS: PCP Family Medicine; Referring Provider Family Medicine; Visit Provider Nurse Practitioner Gerontology | DX: R32 Unspecified urinary incontinence (principal); N39.0 Urinary tract infection, site not specified | CPT/HCPCS: 81003; 99214 ==

== ENCOUNTER 2020-09-17 18:07 | Outpatient (REF) | payer MEDICARE, SELFPAY | END 2020-09-17 18:08 | disposition home or self-care (01) | LOC: LBN 18:07 | PROVIDERS: PCP Family Medicine; Visit Provider Nurse Practitioner Gerontology | DX: N39.0 Urinary tract infection, site not specified (principal) | CPT/HCPCS: 87086 ==

== ENCOUNTER 2021-03-17 13:22 | Outpatient (CLI) | payer MEDICARE, SELFPAY ==
--- NOTE | 2021-03-17 13:15 | RT.EKG_ITS ---
APPROVED REPORT Exam: Resting ECG Reason for Exam: Pre-op H P Patient Location: O HR:77 bpm ECG Measurements Heart Rate 77 AXIS FL 137 P 21 QRSd 86 QRS -15 QT 357 T 11 QTc 404 Conclusion Sinus rhythm...normal P axis, V-rate 60- 99 Normal Electrocardiogram
== END 2021-03-17 13:23 | disposition home or self-care (01) ==
LOC: DI.CM 13:23
PROVIDERS: PCP Family Medicine; Visit Provider Family Medicine
DX: Z01.810 Encounter for preprocedural cardiovascular examination (principal)
CPT/HCPCS: 93010

== ENCOUNTER 2021-04-01 02:59 | Outpatient (CLI) | payer MEDICARE, SELFPAY ==
[2021-04-01 12:12] LABS: Source Nasal/Nares
[2021-04-01 15:16] LABS: COVID-19 PCR Negative (Negative)
== END 2021-04-01 03:00 | disposition home or self-care (01) ==
LOC: LBO 02:59
PROVIDERS: PCP Family Medicine; Visit Provider Ophthalmology
DX: Z20.822 Contact with and (suspected) exposure to COVID-19 (principal); Z01.818 Encounter for other preprocedural examination
CPT/HCPCS: 87635

== ENCOUNTER 2021-04-03 09:12 | Day surgery (SDC) | payer MEDICARE, SELFPAY ==
[2021-04-03 09:30] VITALS: BP 118/67; PULSE 81; RESP 17; TEMP 36.6; O2SAT 98
[2021-04-03] MEDS: Tropicam./Phenyleph. (1/2.5%) 5 ML BTL OS ×3 (10:11→10:26)
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
[2021-04-03 10:52] VITALS: BMI 21.8
[2021-04-03] MEDS: Povidone-Iodine Ophth 30 ML BTL (11:13)
[2021-04-03] MEDS: Tetracaine 0.5% 4 ML BTL OS (11:13)
[2021-04-03] MEDS: Balanced Salt Soln.-PLUS 500 ML BAG (11:22)
[2021-04-03] MEDS: Duovisc Viscoelastic System EACH 1 EACH ×2 (11:22→11:35)
[2021-04-03] MEDS: Lidocaine 2% Jelly 6 ML SYR (11:22)
[2021-04-03] MEDS: Trypan Blue 0.06% 0.5 ML SYR (11:35)
[2021-04-03 12:15] VITALS: BP 152/66; PULSE 77; RESP 18; TEMP 36.2; O2SAT 98
--- NOTE | 2021-04-03 12:25 | W.ANESPOSTOP ---
Postoperative Evaluation Date, Time and Location Date Performed: 04/03/21 Time Performed: 12:25 Patient Location: Day Surgery Unit Vital Signs Most Recent Imported Vital Signs: Most Recent Vital Signs Temp Pulse Resp BP Pulse Ox 36.2 C L 77 18 152/66 H 98 04/03/21 12:15 04/03/21 12:15 04/03/21 12:15 04/03/21 12:15 04/03/21 12:15 Pain Score Most Recent Pain Score: Most Recent Pain Score Pain Level 0 04/03/21 12:15 Assessment Mental Status: Awake (Alert & Oriented to Patient Baseline) Airway and Respiratory Function: Patent airway with normal (patient baseline) respiratory exam Cardiovascular Function: Hemodynamically Stable Hydration Status: Adequately Hydrated Nausea & Vomiting: No Nausea or Vomiting Pain: Pt. Denies Any Pain Peripheral Nerve Block: Patient did not receive a nerve block
--- NOTE | 2021-04-03 12:39 | W.PM.DSUDISC ---
Discharge Plan Disposition Patient Disposition: HOME Condition: Good Discharge Details Attending Provider: Pietro Schuler Primary Care Provider: An Valente Home Meds and New Rx's Prescriptions: No Action (DME) blood-glucose meter [HelijiaTouch Ultra2 Meter] Kit See Rx Instructions .ROUTE .MEDSUPPLY Qty: 1 RF: 0 Myrbetriq 25 mg tablet extended release 24 hr 25 mg PO DAILY Qty: 90 RF: 4 tramadol 50 mg tablet 50 mg PO QID PRN (Reason: pain) Qty: 120 RF: 4 pregabalin 50 mg capsule 50 mg PO BID Qty: 180 RF: 4 (DME) lancets [OneTouch Delica Lancets] 33 gauge misc See Rx Instructions .ROUTE DAILY Qty: 100 RF: 4 meclizine 12.5 mg tablet 12.5 mg PO DAILY PRN (Reason: dizziness) Qty: 90 RF: 0 Lumigan 5 ML drops 1 drp OU HS RF: 0 sennosides-docusate sodium [Senna-S] 1 EACH tablet 1 tab PO HS PRNRF: 0 timolol maleate 15 ML drops 0.5 ml Ophthalmic DAILY Qty: 1 RF: 0 acetaminophen [Tylenol Extra Strength] 500 MG tablet 1 - 2 tab PO TID PRNRF: 0 (DME) Depend Underwear For Women S-M 1 EACH misc 1 ea Miscellaneous TID Qty: 90 RF: 11 (DME) insulin syringe needleless [BD Insulin Syringe Slip Tip] 1 mL syringe See Dose Instructions .ROUTE BID Qty: 90 RF: 12 cholecalciferol (vitamin D3) 1,000 unit capsule 2,000 unit PO DAILY RF: 0 ondansetron HCl 4 mg tablet 4 mg PO BID PRN (Reason: nausea and vomiting) Qty: 60 RF: 3 (DME) pen needle, diabetic [BD Ultra-Fine Mini Pen Needle] 31 gauge x 3/16 needle See Dose Instructions .ROUTE .MEDSUPPLY Qty: 90 RF: 4 estradiol 0.01 % (0.1 mg/gram) cream 1 g vaginal .3 times a week Qty: 42.5 RF: 5 diclofenac sodium [Voltaren] 1 % gel 2 g TP QID Qty: 100 RF: 5 triamcinolone acetonide 0.1 % cream 1 applic TOPICAL BID Qty: 80 RF: 4 (DME) OneTouch Ultra Blue Test Strip Strip See Rx Instructions .ROUTE .MEDSUPPLY Qty: 400 RF: 4 Levemir FlexTouch U-100 Insuln 100 unit/mL (3 mL) insulin pen 18 unit SC DAILY Qty: 15 RF: 7 buspirone 5 mg tablet 5 mg PO TID Qty: 270 RF: 5 Tradjenta 5 mg tablet 5 mg PO QAM Qty: 90 RF: 4 pantoprazole 40 mg tablet,delayed release (DR/EC) 40 mg PO QPM Qty: 90 RF: 5 citalopram 10 mg tablet 10 mg PO DAILY Qty: 90 RF: 4 triamcinolone acetonide [24 Hour Nasal Allergy] 55 mcg aerosol,spray 2 spray intranasal DAILY Qty: 16.9 RF: 4 Discharge Instructions Stand Alone Forms: Post-op Topical Cataract, Vince Cano ([facility]U) Discharge Orders Discharge Orders: Discharge Order (Routine); Ordered 04/03/21 Ordered By: Pietro Schuler Discharge Data Discharge Date/Time-TO BE ENTERED AT DEPARTURE: 04/03/21 12:39 DS: Diagnosis Discharge Diagnosis (1) Cortical cataract of left eye: Status: Resolved (2) Nuclear sclerotic cataract of left eye: Status: Resolved (3) Posterior synechiae (iris), left eye: Status: Resolved (4) Posterior subcapsular age-related cataract of left eye: Status: Resolved (5) 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
--- NOTE | 2021-04-03 12:46 | W.PM.OP ---
Date of service: 04/03/21 Time of Service: 12:46 Operative Note Operative Note DATE OF PROCEDURE: 04/03/21 PRE-OP DIAGNOSIS: Dense nuclear/cortical/posterior subcapsular cataract, left eye Posterior synechiae, left eye Pseudoexfoliation glaucoma, left eye, severe stage Poorly dilating pupil, left eye, poor red reflex, left eye PROCEDURE: Cataract extraction using phacoemulsification with intraocular lens implant, left eye, with pupillary dilation using Malyugin Ring and capsular staining using Vision Blue SURGEON: Pietro Schuler ANESTHESIA TYPE: Local By Surgeon and MAC Refer to Anesthesia Record ESTIMATED BLOOD LOSS: 0 PATHOLOGY: none sent COMPLICATIONS: None Patient was transported to: same day Patient's condition: stable Implants: Maicol [employer] / [employer] Tecnis [id number] Indications: Progressive decreased vision due to cataract, left eye Procedure Description: CATARACT SURGERY OPERATIVE REPORT PREOPERATIVE DIAGNOSIS: 1. Dense nuclear/cortical/posterior subcapsular cataract, left eye 2. Poorly dilating pupil, left eye 3. Poor red reflex, left eye 4. Posterior synechia, left eye 5. Pseudoexfoliation glaucoma, left eye, severe stage 6. High hyperopia, left eye POSTOPERATIVE DIAGNOSIS: Same OPERATION: 1. Cataract extraction using phacoemulsification with posterior chamber intraocular lens implant, left eye. 2. Pupillary dilation and iris stabilization using Malyugin Ring 3. Capsular staining with VIsion Blue 4. Posterior synechiolysis, left eye IOL: IOL Route Delivery Supervisor/Model: Maicol [employer] Maicol / CHONG Tecnis [id number] IOL Power: + 30.5 diopters IOL Serial Number: [id number] Optic Diameter: 6.0mm Haptic/Overall Diameter: 13.0mm PHACO INFO: Jin Centurion Vision System with OZil and Active Fluidics Cumulative Dispersed Energy (CDE): 43.66 seconds SURGEON: Pietro Schuler MD, ADDIE ANESTHESIA: Monitored Anesthesia Care (MAC), with local sub-tenon's anesthetic infiltration COMPLICATIONS: None SPECIMENS: None INDICATIONS FOR PROCEDURE: The patient is an 85-year-old lady with history of pseudoexfoliation glaucoma for many years. She has developed a dense nuclear/cortical/posterior subcapsular cataract in the left eye with visual acuity of 20/300. She has high hyperopia with a shallow anterior chamber and extensive posterior synechia. The option of cataract surgery was offered to the patient and she felt she was symptomatic enough that she wished to proceed. PROCEDURE: The correct surgical eye was identified and marked as the left eye and the pupil was dilated in the preoperative area using mydriatics, cycloplegics, and NSAIDS (except in aspirin allergic patients). The dilated pupil size was 3.5 mm. Extensive posterior synechia were present. She elected to proceed without oral sedation. The patient was brought to the operating room where cardiopulmonary monitoring was instituted and surgical time-out was performed, confirming the correct operative eye and IOL power. Topical anesthesia was administered and ophthalmic povidone-iodine 5% was instilled into the conjunctival fornices. Lidocaine gel was applied to the cornea and the daria-ocular area was prepped with Betadine 10% solution and draped in the usual sterile fashion for intraocular surgery, including an aperture drape. A Tegaderm transparent film dressing was cut in half and used to cover the lashes and lid margins. Care was taken to sequester the lashes and lid margins under the Tegaderm dressing. A lid speculum was placed between the lids of the operative eye and the Jordon-Macarena operating microscope was maneuvered into position. Leonarda scissors were then used to make a conjunctival buttonhole approximately 6mm posterior to the limbus in the inferonasal quadrant. Blunt dissection was carried out to expose bare sclera, and a blunt-tipped sub-tenon?s anesthesia cannula was introduced and passed posteriorly along the globe where non-preserved plain lidocaine was injected into posterior sub-Tenon?s space. A sideport knife was used to make a paracentesis port superiorly/superiortemporally. Intraocular phenylephrine/lidocaine was injected into the anterior chamber. The anterior chamber was then filled with Provisc. A 2.4mm keratome knife was used to create a half-thickness groove at the limbus and then to construct a three-plane near-clear corneal tunnel extending 2.0mm into clear cornea temporally. A 6.25 mm Malyugin Ring was then inserted into the pupillary space and engaged with the Kuglen hook. The Provisc was then removed using the irrigation/aspiration handpiece. Air was then injected into the anterior chamber, followed by VisionBlue, which was painted over the anterior lens capsule and left for approximately 20 seconds. The VisionBlue was then irrigated out of the eye with balanced salt solution. Viscoat was then used to fill the anterior chamber. A flap was raised on the anterior capsule and capsulorhexis forceps were used to complete a continuous curvilinear capsulorhexis of 5.0 mm. The capsule was noted to be extremely thin, with moderate to severe zonular laxity. Balanced salt solution was then used to perform cortical cleaving hydrodissection and nuclear hydrodelineation until the lens could be freely rotated within the capsular bag. The lens nucleus was then disassembled and removed within the capsular bag and iris plane using phacoemulsification. A single deep central groove was sculpted, and additional Viscoat was injected into the anterior chamber. Nuclear splitters were then used to divide the lens into Stephane nuclei. A second deep groove was then sculpted and nuclear splitters were again used to correct the dense nucleus and 2 quadrants. The lens nucleus was very dense. The quadrants were then removed carefully under viscoelastic protection. To remove the final segment, the capsular bag was partially filled with Viscoat to protect the posterior capsule. Residual cortical material was removed using the 45-degree angled silicone I/A tip with 0.3mm port. The posterior capsule was carefully polished to remove as much residual lens epithelial cells as safely possible. The capsular bag was then inflated and the anterior chamber deepened with viscoelastic. The lens implant described above was inserted into the capsular bag using the CHONG [place] Injector. A Kuglen hook was used to dial the IOL into position. The Malyugin Ring was removed in the reverse order of its insertion. Residual viscoelastic was then removed first from posterior to the IOL, then from the anterior chamber using the I/A handpiece. The lens implant was noted to center nicely within the capsular bag. The incisions were stromally hydrated, and the anterior chamber was reformed using BSS. Then 0.5cc of moxifloxacin 1.0mg/ml were injected into the capsular bag and anterior chamber. The incisions were checked with a Weck spear and found to be secure. Several drops of ophthalmic povidone-iodine 5% were then applied to the eye followed by two drops of Imprimis combination prednisolone/moxifloxacin/nepafenac solution. The drapes were removed and a clear plastic protective eye shield was placed over the eye. The patient was then returned to Same Day Surgery in stable condition.
== END 2021-04-03 12:39 | disposition home or self-care (01) ==
LOC: SUR 09:12
PROVIDERS: PCP Family Medicine; Visit Provider Ophthalmology
PROC: (CPT 66982; principal; 2021-04-03 12:00)
DX: H21.542 Posterior synechiae (iris), left eye (principal); H25.042 Posterior subcapsular polar age-related cataract, left eye; H57.03 Miosis
CPT/HCPCS: 66982; V2632

== ENCOUNTER 2021-04-15 01:14 | Outpatient (CLI) | payer MEDICARE, SELFPAY ==
[2021-04-15 14:24] LABS: Source Nasal/Nares
[2021-04-15 18:27] LABS: COVID-19 PCR Negative (Negative)
== END 2021-04-15 01:15 | disposition home or self-care (01) ==
LOC: LBO 01:14
PROVIDERS: PCP Family Medicine; Visit Provider Ophthalmology
DX: Z20.822 Contact with and (suspected) exposure to COVID-19 (principal); Z01.818 Encounter for other preprocedural examination
CPT/HCPCS: 87635

== ENCOUNTER 2021-04-16 20:45 | Outpatient (REF) | payer MEDICARE, SELFPAY ==
[2021-04-16 18:54] LABS: Bilirubin Negative (Negative); Blood Moderate (Negative); Clarity Cloudy (Clear); Glucose Negative (Negative); Ketones Negative (Negative); Leukocyte Esterase Large (Negative); Nitrite Positive (Negative); Specific Gravity 1.025 (1.005-1.025); Urobilinogen 0.2 EU/dL (Up TO 0.2); pH 5.5 (5-8)
[2021-04-16 19:29] LABS: COMMENT (LAB VIEW ONLY) 81.39 mg/dL
[2021-04-16 19:34] LABS: Microalb ug/mg Crea 262.9 ug/mg Cr
[2021-04-16 19:46] LABS: Bacteria Many HPF (Negative); WBC >50 HPF (0-5)
[2021-04-16 19:47] LABS: C & S Indicated? Yes
== END 2021-04-16 20:46 | disposition home or self-care (01) ==
LOC: LBN 20:45
PROVIDERS: PCP Family Medicine; Visit Provider Family Medicine
DX: E11.9 Type 2 diabetes mellitus without complications (principal); R35.0 Frequency of micturition
CPT/HCPCS: 87077; 81003; 81015; 82043; 82570; 87086; 87186

== ENCOUNTER 2021-04-17 07:58 | Day surgery (SDC) | payer MEDICARE, SELFPAY ==
[2021-04-17 08:10] VITALS: BP 138/60; PULSE 79; RESP 18; TEMP 36.2; O2SAT 100
[2021-04-17] MEDS: Tropicam./Phenyleph. (1/2.5%) 5 ML BTL OD ×3 (08:25→08:33)
--- NOTE | 2021-04-17 08:41 | W.PREOPHP ---
Assessment and Plan Assessment and plan (1) Nuclear sclerotic cataract of right eye: Status: Chronic Assessment and plan: Assessment: Dense, visually significant cataract of the right eye. Plan: Cataract extraction with lens implantation, right eye (2) Posterior subcapsular age-related cataract, right eye: Status: Chronic Assessment and plan: Assessment: Dense, visually significant cataract of the right eye. 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 She has shallow anterior chambers due to her high hyperopia and pseudoexfoliation status. Visual acuity measured 2080 OD, 2300 OS. She underwent complex cataract surgery in the left eye on 04/03/2021. Postoperatively she has regained uncorrected vision of 20/40 in the left eye. She now presents for cataract surgery in the right eye. 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 (Acute) Dysuria (Acute) Anxiety (Chronic) Asthma (Chronic 05/24/12) Cystocele, midline (Chronic) Depressive disorder (Chronic 11/13/12) Diabetes mellitus (Chronic 05/24/12) poor control; poor insight Essential hypertension (Chronic 01/01/13) Gastroparesis (Chronic 08/17/16) Glaucoma (Chronic 11/06/13) Hyperlipidemia (Chronic 11/13/12) Irritable colon (Chronic) Medication management (Chronic 07/31/15) easily and often confused about medications despite several interventions (HH, CCC, BHS, multiple OV) 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 Valente Retinopathy (Chronic) 01/22/16 [facility]; MILD B/L Spinal stenosis, lumbar region, 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/17/14) S/P SURGERY Trigger finger, left middle finger (Chronic 07/07/16) Urinary incontinence (Chronic 12/06/16) Impaired ambulation (Chronic) Memory changes (Chronic) Neck pain (Chronic 12/06/16) Weakness (Acute) Toenail fungus (Acute) Physician orders for life-sustaining treatment (POLST) form indicates patient wish for [id number]-[id number] status (Acute) DNR (do not resuscitate) (Acute) Cataract (Chronic) Onychogryphosis (Acute) Xerosis of skin (Acute) 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) Nuclear sclerotic cataract of right eye (Chronic) Posterior subcapsular age-related cataract, right eye (Chronic) Medical History Abdominal discomfort Acute UTI Allergic rhinitis Burn of second degree of multiple sites of unspecified lower limb, except ankle and foot, subsequent encounter Burn of second degree of unspecified lower leg, initial encounter Cataracts, bilateral 01/22/16 Cervical pain (neck) 12/06/16 Cholelithiasis without obstruction 05/24/12 s/p cholecystectomy Chronic duodenal ulcer Chronic gastritis per EGD in 1999 Chronic gastritis Chronic right shoulder pain 12/15/15 Cystitis Diarrhea Elevated LFTs 06/17/14 Emphysematous cystitis Fall in home Fatigue (08/12/15) Health education/counseling Hypertension Increased frequency of urination 01/18/12 Mammogram abnormal 02/17/95 left 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 Srinivas Zavala Pyloric ulcer associated with Helicobacter pylori 02/17/95 Rectal hemorrhage (03/15/17) Rectal prolapse 02/17/15 Right hip pain Syncope (12/05/12) Trochanteric bursitis Right hip Injected: 02/19/2019 Trochanteric bursitis Surgical History Colonoscopy - MAC (~1998) NEG EGD - MAC (08/03/11) History of cataract surgery Hx of cholecystectomy 03/21/1998 Hx of hysterectomy 03/21/1989 S/P cholecystectomy 03/21/98 S/P laparoscopic hysterectomy 03/21/89 Family History Mother , AGE 78 Diabetes Father Diabetes Heart disease Sister Diabetes Brother Diabetes Heart disease Sister Diabetes Social History Smoking/Tobacco Use Status: Never Smoking risk assessment performed?: Yes Alcohol Intake: never Drug use: Never Substance use type: does not use Household members: spouse Current gender identity: female What type of physical activity do you participate in: decline to answer Duration: decline to answer Frequency: decline to answer 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 Special christelle needs: No Seatbelt use: always Do you feel safe at home: Yes Meds Allergies and Home Medications Allergies Allergy/AdvReac Type Severity Reaction Status Date / Time erythromycin base Allergy Mild Skin Rash Verified 04/17/21 08:19 aminophylline Allergy Unknown unknown Verified 04/17/21 08:19 ethylenediamine Allergy Unknown unknown Verified 04/17/21 08:19 nystatin Allergy Unknown unknown Verified 04/17/21 08:19 pyrilamine Allergy Unknown unknown Verified 04/17/21 08:19 ampicillin Allergy Skin Rash Verified 04/17/21 08:19 zinc Allergy unknown Verified 04/17/21 08:19 clindamycin AdvReac Intermediate upset Verified 04/17/21 08:19 stomach/diarrhea hydrocodone AdvReac Intermediate Nausea Verified 04/17/21 08:19 metformin AdvReac Intermediate Verified 04/17/21 08:19 nitrofurantoin AdvReac Intermediate Diarrhea, Verified 04/17/21 08:19 increased LFT's cefpodoxime AdvReac Nausea Verified 04/17/21 08:19 ciprofloxacin [From Cipro] AdvReac Diarrha Verified 04/17/21 08:19 ciprofloxacin HCl AdvReac Diarrha Verified 04/17/21 08:19 [From Cipro] gabapentin AdvReac Makes her Verified 04/17/21 08:19 feel funny mirtazapine AdvReac Makes room Verified 04/17/21 08:19 spin sulfamethoxazole AdvReac Dizzy/nause Verified 04/17/21 08:19 [From Bactrim] a trimethoprim [From Bactrim] AdvReac Dizzy/nause Verified 04/17/21 08:19 a Home Medications Medication Instructions Recorded Confirmed Type Lumigan 1 drp OU HS script 10/08/13 04/17/21 History sennosides-docusate sodium 1 tab PO HS PRN 05/27/16 04/16/21 History [Senna-S] timolol maleate 0.5 ml OPHTHALMIC DAILY #1 script 10/19/16 04/17/21 History acetaminophen [Tylenol Extra 1 - 2 tab PO TID PRN 06/23/17 04/17/21 History Strength] Depend Underwear For Women S-M #90 ea 08/22/17 04/16/21 History insulin syringe needleless 1 mL #90 syringe 05/08/18 04/16/21 Rx cholecalciferol (vitamin D3) 25 2,000 unit PO DAILY cap 08/23/18 04/17/21 History mcg (1,000 unit) capsule blood-glucose meter #1 each 04/05/19 04/16/21 Rx ondansetron HCl 4 mg tablet 4 mg PO BID PRN #60 tab 04/24/20 04/16/21 Rx pen needle, diabetic 31 gauge x #90 each 06/18/20 04/16/21 Rx 3/16 mirabegron 25 mg tablet,extended 25 mg PO DAILY #90 tab 07/10/20 04/17/21 Rx release 24 hr tramadol 50 mg tablet 50 mg PO QID PRN #120 tab 07/24/20 04/16/21 Rx estradiol 1 g VAGINAL .3 times a week #42.5 g 09/17/20 04/17/21 Rx diclofenac sodium 1 % topical gel 2 g TP QID #100 g 10/06/20 04/16/21 Rx triamcinolone acetonide 0.1 % 1 applic TOPICAL BID #80 g 10/13/20 04/16/21 Rx topical cream pregabalin 50 mg capsule 50 mg PO BID #180 cap 10/23/20 04/17/21 Rx blood sugar diagnostic #400 each 11/03/20 04/16/21 Rx buspirone 5 mg tablet 5 mg PO TID #270 tab 11/18/20 04/17/21 Rx insulin detemir U-100 100 unit/mL 18 unit SC DAILY #15 ml 11/18/20 04/17/21 Rx (3 mL) subcutaneous pen linagliptin 5 mg tablet 5 mg PO QAM #90 tab 08/31/21 01/28/22 Rx pantoprazole 40 mg tablet,delayed 40 mg PO QPM #90 tab 11/18/20 04/17/21 Rx release citalopram 10 mg tablet 10 mg PO DAILY #90 tab 11/26/20 04/17/21 Rx lancets 33 gauge #100 each 12/29/20 04/16/21 Rx triamcinolone acetonide 55 mcg 2 spray INTRANASAL DAILY #16.9 ml 01/12/21 04/16/21 Rx nasal spray aerosol meclizine 12.5 mg tablet 12.5 mg PO DAILY PRN #90 tab 02/23/21 04/16/21 Rx Exam Eyes Other: There is a well-positioned PCIOL in the left eye with clear posterior capsule. In the right eye there is a dense nuclear cataract with poorly dilating pupil. The anterior chamber angle is very narrow. Posterior synechia are present upon pupil dilation, which dilates only to 3 mm. Pseudoexfoliation material and pigment around the anterior lens capsule. Funduscopic examination reveals disc cupping of 0.8 OD, 0.6 OS. The remainder of the funduscopic examination is unremarkable. Intraocular pressure measures 15 in the right eye and 15 in the left. Resp Auscultation: clear to auscultation bilaterally Cardio Rate: regular rate Rhythm: regular rhythm Results Last Vital Signs Temp 36.2 C L 04/17/21 08:10 Pulse 79 04/17/21 08:10 Resp 18 04/17/21 08:10 BP 138/60 04/17/21 08:10 Pulse Ox 100 04/17/21 08:10
[2021-04-17 09:24] VITALS: BMI 22.5
--- NOTE | 2021-04-17 09:24 | W.ANESPRE ---
General Info Date of Service Date Performed: 04/17/21 Height: 5 ft 2 in Weight: 55.8 kg Body Mass Index (BMI): 22.5 Surgical Procedure: Operation Date: 04/17/21 10:40 Proposed Procedures Side Surgeon p Cataract Extraction with IOL Implant Right Pietro Schuler MD Meds Allergies and Home Medications Allergies Allergy/AdvReac Type Severity Reaction Status Date / Time erythromycin base Allergy Mild Skin Rash Verified 04/17/21 08:19 aminophylline Allergy Unknown unknown Verified 04/17/21 08:19 ethylenediamine Allergy Unknown unknown Verified 04/17/21 08:19 nystatin Allergy Unknown unknown Verified 04/17/21 08:19 pyrilamine Allergy Unknown unknown Verified 04/17/21 08:19 ampicillin Allergy Skin Rash Verified 04/17/21 08:19 zinc Allergy unknown Verified 04/17/21 08:19 clindamycin AdvReac Intermediate upset Verified 04/17/21 08:19 stomach/diarrhea hydrocodone AdvReac Intermediate Nausea Verified 04/17/21 08:19 metformin AdvReac Intermediate Verified 04/17/21 08:19 nitrofurantoin AdvReac Intermediate Diarrhea, Verified 04/17/21 08:19 increased LFT's cefpodoxime AdvReac Nausea Verified 04/17/21 08:19 ciprofloxacin [From Cipro] AdvReac Diarrha Verified 04/17/21 08:19 ciprofloxacin HCl AdvReac Diarrha Verified 04/17/21 08:19 [From Cipro] gabapentin AdvReac Makes her Verified 04/17/21 08:19 feel funny mirtazapine AdvReac Makes room Verified 04/17/21 08:19 spin sulfamethoxazole AdvReac Dizzy/nause Verified 04/17/21 08:19 [From Bactrim] a trimethoprim [From Bactrim] AdvReac Dizzy/nause Verified 04/17/21 08:19 a Home Medication Medication Instructions Recorded Lumigan 1 drp OU HS script 10/08/13 sennosides-docusate sodium 1 tab PO HS PRN 05/27/16 [Senna-S] timolol maleate 0.5 ml OPHTHALMIC DAILY #1 script 10/19/16 acetaminophen [Tylenol Extra 1 - 2 tab PO TID PRN 06/23/17 Strength] Depend Underwear For Women S-M #90 ea 08/22/17 insulin syringe needleless 1 mL #90 syringe 05/08/18 cholecalciferol (vitamin D3) 25 2,000 unit PO DAILY cap 08/23/18 mcg (1,000 unit) capsule blood-glucose meter #1 each 04/05/19 ondansetron HCl 4 mg tablet 4 mg PO BID PRN #60 tab 04/24/20 pen needle, diabetic 31 gauge x #90 each 06/18/2006/03 mirabegron 25 mg tablet,extended 25 mg PO DAILY #90 tab 07/10/20 release 24 hr tramadol 50 mg tablet 50 mg PO QID PRN #120 tab 07/24/20 estradiol 1 g VAGINAL .3 times a week #42.5 g 09/17/20 diclofenac sodium 1 % topical gel 2 g TP QID #100 g 10/06/20 triamcinolone acetonide 0.1 % 1 applic TOPICAL BID #80 g 10/13/20 topical cream pregabalin 50 mg capsule 50 mg PO BID #180 cap 10/23/20 blood sugar diagnostic #400 each 11/03/20 buspirone 5 mg tablet 5 mg PO TID #270 tab 11/18/20 insulin detemir U-100 100 unit/mL 18 unit SC DAILY #15 ml 11/18/20 (3 mL) subcutaneous pen linagliptin 5 mg tablet 5 mg PO QAM #90 tab 11/18/20 pantoprazole 40 mg tablet,delayed 40 mg PO QPM #90 tab 11/18/20 release citalopram 10 mg tablet 10 mg PO DAILY #90 tab 11/26/20 lancets 33 gauge #100 each 12/29/20 triamcinolone acetonide 55 mcg 2 spray INTRANASAL DAILY #16.9 ml 01/12/21 nasal spray aerosol meclizine 12.5 mg tablet 12.5 mg PO DAILY PRN #90 tab 02/23/21 Current Visit Medications: Current Medications Generic Name Dose Route Start Last Admin Trade Name Freq PRN Reason Stop Dose Admin Acetaminophen 1,000 mg 04/17/21 06:00 Acetaminophen 500 Mg Tab PO Q4H PRN PRN Miscellaneous Medication 0 ml 04/17/21 06:00 Prednisolone 1%, Moxifloxacin 0.5%, Nepafenac 0.1% 5ml Btl OD DIRECTED GUY Miscellaneous Medication 0 ml 04/17/21 06:00 01/28/22 08:33 Tropicam./Phenyleph. (1/2.5%) 5 Ml Btl OD 1 drp DIRECTED GUY Administration Tetracaine HCl 0 ml 04/17/21 06:00 Tetracaine 0.5% 4 Ml Btl OD DIRECTED GUY PFSH Active Problems Active Problems: Problem Status Onset Code Posterior synechiae (iris), right eye H21.541 Pseudoexfoliation (PXF) glaucoma of right eye H40.1410 Dysuria R30.0 Anxiety F41.9 Asthma 05/24/12 J45.909 Cystocele, midline N81.11 Depressive disorder 11/13/12 F32.9 Diabetes mellitus 05/24/12 E11.9 Essential hypertension 01/01/13 I10 Gastroparesis 08/17/16 K31.84 Glaucoma 11/06/13 H40.9 Hyperlipidemia 11/13/12 E78.5 Irritable colon K58.9 Medication management 07/31/15 Z79.899 Neurodermatitis L28.0 Optic atrophy 10/18/08 H47.20 Osteoporosis M81.0 Palliative care patient 05/05/16 Z51.5 Retinopathy H35.00 Spinal stenosis, lumbar region, with neurogenic claudication 09/17/14 M48.062 Trigger finger, left middle finger 07/07/16 M65.332 Urinary incontinence 12/06/16 R32 Impaired ambulation R26.2 Memory changes R41.3 Rectal prolapse 02/17/15 K62.3 Neck pain 12/06/16 M54.2 Chronic right shoulder pain 12/15/15 M25.511, G89.29 Weakness R53.1 Toenail fungus B35.1 Physician orders for life-sustaining treatment (POLST) form indicates patient wish for ks-[id number] status Z66 DNR (do not resuscitate) Z66 Cataract H26.9 Onychogryphosis L60.2 Xerosis of skin L85.3 Cortical cataract of left eye H26.9 Nuclear sclerotic cataract of left eye H25.12 Posterior synechiae (iris), left eye H21.542 Posterior subcapsular age-related cataract of left eye H25.042 Pseudoexfoliation (PXF) of left lens capsule H26.8 Nuclear sclerotic cataract of right eye H25.11 Posterior subcapsular age-related cataract, right eye H25.041 Medical History Medical History Abdominal discomfort Acute UTI Allergic rhinitis Burn of second degree of multiple sites of unspecified lower limb, except ankle and foot, subsequent encounter Burn of second degree of unspecified lower leg, initial encounter Cataracts, bilateral 01/22/16 Cervical pain (neck) 12/06/16 Cholelithiasis without obstruction 05/24/12 s/p cholecystectomy Chronic duodenal ulcer Chronic gastritis per EGD in 1999 Chronic gastritis Chronic right shoulder pain 12/15/15 Cystitis Diarrhea Elevated LFTs 06/17/14 Emphysematous cystitis Fall in home Fatigue (08/12/15) Health education/counseling Hypertension Increased frequency of urination 01/18/12 Mammogram abnormal 02/17/95 left 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 Srinivas Zavala Pyloric ulcer associated with Helicobacter pylori 02/17/95 Rectal hemorrhage (03/15/17) Rectal prolapse 02/17/15 Right hip pain Syncope (12/05/12) Trochanteric bursitis Right hip Injected: 02/19/2019 Trochanteric bursitis Surgical History Surgical History Colonoscopy - MAC (~1998) NEG EGD - MAC (08/03/11) History of cataract surgery Hx of cholecystectomy 03/21/1998 Hx of hysterectomy 03/21/1989 S/P cholecystectomy 03/21/98 S/P laparoscopic hysterectomy 03/21/89 Tobacco Smoking/Tobacco Use Status: Never Alcohol Alcohol Intake: never Substance Use Substance use: Never Substance use type: does not use Vital Signs and Lab Results Vital Signs Most Recent Vital Signs in EMR: Most Recent Vital Signs Temp Pulse Resp BP Pulse Ox 36.2 C L 79 18 138/60 100 04/17/21 08:10 04/17/21 08:10 04/17/21 08:10 04/17/21 08:10 04/17/21 08:10 Lab Results Blood Type / Crossmatch: No Data to Display Complete Blood Count: No Data to Display Complete Metabolic Panel: Hemoglobin A1c 7.0 % (4.5-5.7) H 04/16/21 12:02 04/16/21 Liver Function Panel: No Data to Display Coagulation Panel: No Data to Display Cardiac Panel: No Data to Display Arterial Blood Gas: No Data to Display Venous Blood Gas: No Data to Display Pancreas Panel: No Data to Display Thyroid Panel: No Data to Display Infectious Disease: Coronavirus (COVID-19)(PCR) Negative (Negative) 04/15/21 13:30 04/15/21 Coronavirus 2019 Source Nasal/Nares 04/15/21 13:30 04/15/21 Blood Cultures: No Data to Display Toxicology Panel: No Data to Display Imaging and Studies Imaging and Studies Study information below may be from another EMR and interpreted by another provider. Please see original notes in EMR for more complete details. EKG Summary: DATE/TIME OF SERVICE: 03/17/21 1340 HR:77 bpm ECG Measurements Heart Rate 77 AXIS SC 137 P 21 QRSd 86 QRS -15 QT 357 T11 QTc 404 Conclusion Sinus rhythm...normal P axis, V-rate 60- 99 Normal Electrocardiogram Stress Test Summary: Date of study: 10/25/2016 Impressions: Normal perfusion by [id number] Sestamibi Imaging. Summary: 1. Myocardial perfusion imaging: No myocardial perfusion defects noted. Hyperdynamic LV. NO ANGINA NO ISCHEMIC CHANGES SEEN. HEART RATES LOW 100'S NINE MINUTES POST INJECTION. PATIENT ANXIOUS AT BASELINE. Myocardial perfusion: Imaging information: gated. No myocardial perfusion defects noted. Hyperdynamic LV. Ventricular Function (Wall Motion): The calculated left ventricular ejection fraction after stress: 75%. Echocardiogram Summary: Date of study: 11/12/2016 Transthoracic Echocardiography M-mode, complete 2D, complete spectral Doppler, and color Doppler *STUDY CONCLUSIONS* Summary: 1. Left ventricle: The cavity size was normal. Systolic function was hyperdynamic. The estimated ejection fraction was 65-70%. 2. Mitral valve: There was mild regurgitation. 3. Right ventricle: Poorly visualized. 4. Atrial septum: No defect or patent foramen ovale was identified. 5. Pulmonary arteries: Pulmonary systolic pressure was >= 25mm Hg. 6. Inferior vena cava: The vessel was normal in size. The respirophasic diameter changes were in the normal range (greater than or equal to 50%), consistent with normal central venous pressure. Anesthesia Assessment and Plan Anesthesia History Personal History: No History of Anesthesia Complications Family History: No Family History of Anesthesia Complications Exercise Tolerance Exercise Tolerance: Metabolic Equivalents>4 Pertinent Negatives Pertinent Negatives: No Symptoms of GERD Cardiac & Pulmonary Exam Cardiac Exam: Normal S1/S2 Heart Sounds Pulmonary Exam: Clear Bilateral Breath Sounds Implantable Cardiac Device Does patient have a Pacemaker or an ICD?: No Airway Exam Known Difficult Airway: No Mallampati Class: 3 Mouth Opening: Normal (> 3cm) Thyromental Distance: Less than 3 cm Neck Range of Motion: Full ROM Neck Circumference: Normal Teeth Condition: Removable Dentures/Plates Upper ASA Classification ASA Score: ASA 3 Emergency Case?: No NPO Status NPO Status: NPO Clears >2 hours, Solids >8 hours Anesthesia Plan Resuscitation Status: Full Code Anesthesia Technique: MAC Anesthesia Airway Planned: Natural Airway Monitors Used: Standard Monitors
[2021-04-17] MEDS: Povidone-Iodine Ophth 30 ML BTL (09:55)
[2021-04-17] MEDS: Lidocaine 2% Jelly 6 ML SYR (09:55)
[2021-04-17] MEDS: Tetracaine 0.5% 4 ML BTL OD (10:00)
[2021-04-17] MEDS: Balanced Salt Soln.-PLUS 500 ML BAG (10:05)
[2021-04-17] MEDS: Duovisc Viscoelastic System EACH 1 EACH (10:06)
[2021-04-17] MEDS: Trypan Blue 0.06% 0.5 ML SYR (10:08)
--- NOTE | 2021-04-17 10:41 | W.PM.DSUDISC ---
Discharge Plan Disposition Patient Disposition: HOME Condition: Good Discharge Details Attending Provider: Pietro Schuler Primary Care Provider: An Valente Home Meds and New Rx's Prescriptions: No Action (DME) blood-glucose meter [AlertEnterpriseTouch Ultra2 Meter] Kit See Rx Instructions .ROUTE .MEDSUPPLY Qty: 1 RF: 0 Myrbetriq 25 mg tablet extended release 24 hr 25 mg PO DAILY Qty: 90 RF: 4 tramadol 50 mg tablet 50 mg PO QID PRN (Reason: pain) Qty: 120 RF: 4 pregabalin 50 mg capsule 50 mg PO BID Qty: 180 RF: 4 (DME) lancets [OneTouch Delica Lancets] 33 gauge misc See Rx Instructions .ROUTE DAILY Qty: 100 RF: 4 meclizine 12.5 mg tablet 12.5 mg PO DAILY PRN (Reason: dizziness) Qty: 90 RF: 0 Lumigan 5 ML drops 1 drp OU HS RF: 0 sennosides-docusate sodium [Senna-S] 1 EACH tablet 1 tab PO HS PRNRF: 0 timolol maleate 15 ML drops 0.5 ml Ophthalmic DAILY Qty: 1 RF: 0 acetaminophen [Tylenol Extra Strength] 500 MG tablet 1 - 2 tab PO TID PRNRF: 0 (DME) Depend Underwear For Women S-M 1 EACH misc 1 ea Miscellaneous TID Qty: 90 RF: 11 (DME) insulin syringe needleless [BD Insulin Syringe Slip Tip] 1 mL syringe See Dose Instructions .ROUTE BID Qty: 90 RF: 12 cholecalciferol (vitamin D3) 1,000 unit capsule 2,000 unit PO DAILY RF: 0 ondansetron HCl 4 mg tablet 4 mg PO BID PRN (Reason: nausea and vomiting) Qty: 60 RF: 3 (DME) pen needle, diabetic [BD Ultra-Fine Mini Pen Needle] 31 gauge x 3/16 needle See Dose Instructions .ROUTE .MEDSUPPLY Qty: 90 RF: 4 estradiol 0.01 % (0.1 mg/gram) cream 1 g vaginal .3 times a week Qty: 42.5 RF: 5 diclofenac sodium [Voltaren] 1 % gel 2 g TP QID Qty: 100 RF: 5 triamcinolone acetonide 0.1 % cream 1 applic TOPICAL BID Qty: 80 RF: 4 (DME) OneTouch Ultra Blue Test Strip Strip See Rx Instructions .ROUTE .MEDSUPPLY Qty: 400 RF: 4 Levemir FlexTouch U-100 Insuln 100 unit/mL (3 mL) insulin pen 18 unit SC DAILY Qty: 15 RF: 7 buspirone 5 mg tablet 5 mg PO TID Qty: 270 RF: 5 Tradjenta 5 mg tablet 5 mg PO QAM Qty: 90 RF: 4 pantoprazole 40 mg tablet,delayed release (DR/EC) 40 mg PO QPM Qty: 90 RF: 5 citalopram 10 mg tablet 10 mg PO DAILY Qty: 90 RF: 4 triamcinolone acetonide [24 Hour Nasal Allergy] 55 mcg aerosol,spray 2 spray intranasal DAILY Qty: 16.9 RF: 4 Discharge Instructions Stand Alone Forms: Post-op Topical Cataract, Vince aCno (DSU) Discharge Orders Discharge Orders: Discharge Order (Routine); Ordered 04/17/21 Ordered By: Pietro Schuler DS: Diagnosis Discharge Diagnosis (1) Nuclear sclerotic cataract of right eye: Status: Resolved (2) Posterior subcapsular age-related cataract, right eye: Status: Resolved (3) Posterior synechiae (iris), right eye: Status: Resolved (4) 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
[2021-04-17 10:42] VITALS: BP 136/96; PULSE 82; RESP 16; TEMP 36.5; O2SAT 98
--- NOTE | 2021-04-17 10:46 | ROE_ITS ---
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, right eye Pseudoexfoliation glaucoma, severe stage POST-OP DIAGNOSIS: same PROCEDURE: Cataract extraction using phacoemulsification with intraocular lens implant, right eye, with pupillary dilation using Malyugin Ring and capsular staining using Vision Blue SURGEON: Pietro Schuler Refer to Anesthesia Record ESTIMATED BLOOD LOSS: 0 PATHOLOGY: none sent COMPLICATIONS: None Patient was transported to: same day Patient's condition: stable Implants: [employer] / [employer] Tecnis [id number] Indications: Progressive decreased vision due to cataract, right eye Procedure Description: CATARACT SURGERY OPERATIVE REPORT PREOPERATIVE DIAGNOSIS: 1. Dense nuclear/posterior subcapsular cataract, right eye 2. Poorly dilating pupil, right eye 3. Poor red reflex, right eye 4. Posterior synechia, right eye 5. Pseudoexfoliation glaucoma, right eye, severe stage POSTOPERATIVE DIAGNOSIS: Same OPERATION: 1. Cataract extraction using phacoemulsification with posterior chamber intraocular lens implant, right eye. 2. Pupillary dilation and iris stabilization using Malyugin Ring 3. Capsular staining with VIsion Blue IOL: IOL Inclusion Special Educator/Model: Ma[employer] Maicol / CHONG Tecnis [id number] IOL Power: + 30.5 diopters IOL Serial Number: [id number] Optic Diameter: 6.0mm Haptic/Overall Diameter: 13.0mm PHACO INFO: [employer] Vision System with OZil and Active [employer]uidics Cumulative Dispersed Energy (CDE): 29.76 seconds SURGEON: Pietro Schuler MD, ADDIE ANESTHESIA: Monitored Anesthesia Care (MAC), with local sub-tenon's anesthetic infiltration COMPLICATIONS: None SPECIMENS: None INDICATIONS FOR PROCEDURE: The patient is an 85-year-old lady with long history of pseudoexfoliation glaucoma who developed dense bilateral nuclear and posterior subcapsular cataracts. She has a history of high hyperopia with short axial length. She has poorly dilating pupil secondary to posterior synechia and pseudoexfoliation. She has very shallow anterior chambers secondary to her short axial length, thick lens, and zonular laxity from pseudoexfoliation. She has already undergone cataract surgery in the left eye which was complex and challenging. She now has achieved uncorrected vision of 20/40 in the left eye. She presents for cataract surgery in the right eye. PROCEDURE: The correct surgical eye was identified and marked as the right eye and the pupil was dilated in the preoperative area using mydriatics and cycloplegics. The dilated pupil size was 3.0 mm. She elected to proceed without oral sedation. The patient was brought to the operating room where card iopulmonary monitoring was instituted and surgical time-out was performed, confirming the correct operative eye and IOL power. Topical anesthesia was administered and ophthalmic povidone-iodine 5% was instilled into the conjunctival fornices. Lidocaine gel was applied to the cornea and the daria-ocular area was prepped with Betadine 10% solution and draped in the usual sterile fashion for intraocular surgery, including an aperture drape. A Tegaderm transparent film dressing was cut in half and used to cover the lashes and lid margins. Care was taken to sequester the lashes and lid margins under the Tegaderm dressing. A lid speculum was placed between the lids of the operative eye and the Jordon-Macarena operating microscope was maneuvered into position. Leonarda scissors were then used to make a conjunctival buttonhole approximately 6mm posterior to the limbus in the inferonasal quadrant. Blunt dissection was carried out to expose bare sclera, and a blunt-tipped sub-tenon?s anesthesia cannula was introduced and passed posteriorly along the globe where non- preserved plain lidocaine was injected into posterior sub-Tenon?s space. A sideport knife was used to make a paracentesis port inferiortemporally. Intraocular phenylephrine/lidocaine was injected into the anterior chamber. No additional pupillary dilation was achieved. Provisc was then injected into the anterior chamber, and the cannula was used to release posterior synechia, which resulted in no additional pupillary dilation. A 2.4mm keratome knife was used to create a half-thickness groove at the limbus and then to construct a three- plane near-clear corneal tunnel extending 2.0mm into clear cornea superiortemporally. A 6.25 mm Malyugin Ring was then inserted into the pupillary space and engaged with the Kuglen hook. The Provisc was then removed from the eye using the irrigation/aspiration handpiece. Air was then injected into the anterior chamber, followed by VisionBlue, which was painted over the anterior lens capsule and allowed to sit for 30 seconds. Excess VisionBlue was then irrigated from the eye using balanced salt solution. A significant amount of pseudoexfoliation material was present on the anterior capsule, as well as some pigment deposition. A flap was raised on the anterior capsule and capsulorhexis forceps were used to complete a continuous curvilinear capsulorhexis of 5.0 mm. Moderate zonular laxity was noted. The anterior capsule was noted to be very thin. Balanced salt solution was then used to perform cortical cleaving hydrodissection and nuclear hydrodelineation until the lens could be freely rotated within the capsular bag. The lens nucleus was then disassembled and removed within the capsular bag and iris plane using phacoemulsification. Nuclear splitters were used to aid in cracking the lens into 2 heminuclei. Additional Viscoat was used throughout nuclear removal to protect the corneal endothelium due to the shallow anterior chamber and dense nucleus. The remaining heminuclei were chopped into smaller fragments and removed without difficulty. Residual cortical material was removed using the 45-degree angled silicone I/A tip with 0.3mm port. The posterior capsule was carefully polished to remove as much residual lens epithelial cells as safely possible. The capsular bag was then inflated and the anterior chamber deepened with viscoelastic. The lens implant described above was inserted into the capsular bag using the CHONG [place] Injector. A Kuglen hook was used to dial the IOL into position. The Malyugin Ring was removed in the reverse order of its insertion. Residual viscoelastic was then removed first from posterior to the IOL, then from the anterior chamber using the I/A handpiece. The lens implant was noted to center nicely within the capsular bag. The incisions were stromally hydrated, and the anterior chamber was reformed using BSS. Then 0.5cc of moxifloxacin 1.0mg/ml were injected into the capsular bag and anterior chamber. The i ncisions were checked with a Weck spear and found to be secure. Several drops of ophthalmic povidone-iodine 5% were then applied to the eye followed by two drops of Imprimis combination prednisoone/moxifloxacin/nepafenac solution. The drapes were removed and a clear plastic protective eye shield was placed over the eye. The patient was then returned to [facility] Day Surgery in stable condition.
--- NOTE | 2021-04-17 11:07 | W.ANESPOSTOP ---
Postoperative Evaluation Date, Time and Location Date Performed: 04/17/21 Time Performed: 10:45 Patient Location: Day Surgery Unit Vital Signs Most Recent Imported Vital Signs: Most Recent Vital Signs Temp Pulse Resp BP Pulse Ox 36.5 C 82 16 136/96 H 98 04/17/21 10:42 04/17/21 10:42 04/17/21 10:42 04/17/21 10:42 04/17/21 10:42 Pain Score Most Recent Pain Score: Most Recent Pain Score Pain Level 0 04/17/21 10:42 Assessment Mental Status: Awake (Alert & Oriented to Patient Baseline) Airway and Respiratory Function: Patent airway with normal (patient baseline) respiratory exam Cardiovascular Function: Hemodynamically Stable Hydration Status: Adequately Hydrated Nausea & Vomiting: No Nausea or Vomiting Pain: Pt. Denies Any Pain Peripheral Nerve Block: Patient did not receive a nerve block
== END 2021-04-17 11:02 | disposition home or self-care (01) ==
PROVIDERS: PCP Family Medicine; Visit Provider Ophthalmology
PROC: (CPT 66982; principal; 2021-04-17 10:30)
DX: H25.041 Posterior subcapsular polar age-related cataract, right eye (principal); H57.03 Miosis; H21.541 Posterior synechiae (iris), right eye
CPT/HCPCS: 66982; V2632

== ENCOUNTER 2021-06-18 17:59 | Outpatient (REF) | payer OTHER, SELFPAY ==
[2021-06-18 13:23] LABS: Bilirubin Negative (Negative); Blood Moderate (Negative); Clarity Cloudy (Clear); Glucose Negative (Negative); Ketones Negative (Negative); Leukocyte Esterase Large (Negative); Nitrite Negative (Negative); Urobilinogen 0.2 EU/dL (Up TO 0.2)
[2021-06-18 13:42] LABS: Bacteria Many HPF (Negative); C & S Indicated? Yes; Casts Negative LPF (Negative); Crystals Negative HPF (Negative); Epithelial Cells Negative HPF (Negative); Mucus Trace (Negative); Other Cells Negative (Negative); RBC >50 HPF (0-2); WBC >50 HPF (0-5)
== END 2021-06-18 18:00 | disposition home or self-care (01) ==
LOC: LBN 17:59
PROVIDERS: PCP Family Medicine; Visit Provider Family Medicine
DX: R30.0 Dysuria (principal)
CPT/HCPCS: 87077; 81003; 81015; 87086; 87186

== ENCOUNTER 2021-09-19 19:37 | Emergency (ER) | payer OTHER, SELFPAY ==
[2021-09-19] VITALS (10 sets, daily range): BP systolic 111–167; BP diastolic 51–118; PULSE 77–102; RESP 15–20; TEMP 36.6–36.7; O2SAT 97–99
--- NOTE | 2021-09-19 19:45 | RT.EKG_ITS ---
APPROVED REPORT Exam: Resting ECG Reason for Exam: AMS Patient Location: E HR:81 bpm ECG Measurements Heart Rate 81 AXIS [place] 146 P 44 QRSd 88 QRS -10 QT 359 T 16 QTc 416 Conclusion Sinus rhythm...normal P axis, V-rate 60- 99 Inferior infarct, old...Q >35mS, II III aVF sinus rhythm, normal intervals, non ischemic
--- NOTE | 2021-09-19 20:00 | DI.CT_ITS ---
Exam(s) CT ABDOMEN PELVIS WO EXAM: CT ABDOMEN PELVIS WO CLINICAL HISTORY: N/V/Diarrhea, Abdominal Pain. TECHNIQUE: Imaging Protocol: Axial computed tomography images with coronal and sagittal reformatted images were created and reviewed CONTRAST MATERIAL: Intravenous: none Oral: None COMPARISON: CT CT ABDOMEN PELVIS W from 06/05/2019 FINDINGS: VISUALIZED LUNG BASES: No nodules nor pleural effusions evident. ABDOMEN: There is no ascites. LIVER: There are no obvious focal hepatic lesions evident of this noninfused study. GALLBLADDER/BILIARY: Gallbladder is again noted be surgically absent. CBD diameter slightly prominen t but unchanged. PANCREAS: Atrophic appearing pancreas again noted. Calcifications around the pancreatic head again n oted, probably vascular and/or calcified lymph node, unchanged. SPLEEN: Spleen is not enlarged. No obvious intrasplenic lesions. ADRENALS: There are no significant adrenal masses. KIDNEYS:No cysts evident. No solid renal masses. No calculi nor hydronephrosis. . ABDOMINAL AORTA: Abdominal aorta is not enlarged. LYMPH NODES: There is no retroperitoneal nor paraaortic adenopathy. ABDOMINAL WALL: No evidence of significant anterior abdominal wall nor inguinal hernia. GI: There is no evidence of bowel obstruction, free air, nor abscess. PELVIS: LYMPH NODES: There is no intrapelvic nor inguinal adenopathy. GI: No evidence of appendicitis.No evidence of sigmoid diverticulitis. URINARY BLADDER: No calculi nor obvious masses evident REPRODUCTIVE: Uterus is atrophic or surgically absent. There are no abnormal adnexal masses. No leonel e fluid in the pelvis. OSSEOUS: No significant osseous lesions. IMPRESSION: 1. Gallbladder is again noted be surgically absent. Biliary tree diameter again noted be slightly pr ominent, unchanged. 2. Calcifications around the pancreatic evident again noted, probably combination of vascular and lucio cified lymph nodes. 3. Uterus is atrophic or surgically absent. No abnormal adnexal masses. RADIATION DOSE DELIVERED: 684.41mGy.cm Total DLP DATA REPOSITORY: All CT scans at this facility are submitted to the National Radiology Data Registry (NRDR) Dose Index Registry (DIR) with the [employer] ([employer]). RADIATION OPTIMIZATION: All CT scans at this facility use at least one of these dose optimization te chniques: automated exposure control; mA and/or kV adjustment per patient size (includes targeted exa ms where dose is matched to clinical indication); or iterative reconstruction.
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
--- NOTE | 2021-09-19 20:15 | DI.CT_ITS ---
Exam(s) CT HEAD WO EXAM: CT HEAD WO CLINICAL HISTORY: Syncopal episode. TECHNIQUE: Imaging Protocol: Axial computed tomography images with coronal and sagittal reformatted images were created and reviewed COMPARISON: CT CT HEAD WO from 01/12/2019 FINDINGS: There are no skull fractures nor fluid in the visualized paranasal sinuses. There is no evidence of intracranial hemorrhage, mass effect, or shift of midline structures. There are no extra-axial fluid collections. There is periventricular hypodensity consistent with chronic small vessel ischemic changes again note d. No obvious acute infarct. The lateral ventricles are enlarged, similar to previous and appear to be somewhat at a proportion when compared to the overlying cortical sulci. Third ventricular size a lso slightly prominent. Fourth ventricle size upper normal. IMPRESSION: The size of the ventricles is someone prominent when compared to the size of the overlying cortical s ulci, similar to previous. Correlation with any clinical signs of normal pressure hydrocephalus is r ecommended. RADIATION DOSE DELIVERED: 612.73mGy.cm Total DLP DATA REPOSITORY: All CT scans at this facility are submitted to the National Radiology Data Registry (NRDR) Dose Index Registry (DIR) with the [employer] (ACR). RADIATION OPTIMIZATION: All CT scans at this facility use at least one of these dose optimization te chniques: automated exposure control; mA and/or kV adjustment per patient size (includes targeted exa ms where dose is matched to clinical indication); or iterative reconstruction.
[2021-09-19 20:23] LABS: Abs Immature Grans 0.04 10^3/uL (0.0-0.06); Absolute Basophil Count 0.07 10^3/uL (0.0-0.2); Absolute Eosinophil Count 0.25 10^3/uL (0.0-0.7); Absolute Lymphocyte Count 2.91 10^3/uL (1.2-3.4); Absolute Monocyte Count 1.13 10^3/uL (0.1-0.8); Absolute Neutrophil Count 7.39 10^3/uL (1.2-6.7); Basophils % 0.6; Eosinophils % 2.1; HCT 38.5 % (36.0-46.0); HGB 12.4 g/dL (11.2-15.7); Immature Grans % 0.3; Lymphocytes % 24.7; MCH 31.4 pg (27.0-33.0); MCHC 32.2 % (32.0-36.0); MCV 98 fL (80-95); MPV 10.6 fL (8.0-11.0); Monocytes % 9.6; Neutrophils % 62.7; Platelet Count 253 10^3/uL (130-400); RBC 3.95 10^6/uL (3.93-5.22); RDW-SD 46.4 fL; WBC 11.79 10^3/uL (4.4-10.8)
[2021-09-19 20:40] LABS: ALT 17 U/L (14-59); AST 21 U/L (15-37); Albumin 3.4 g/dL (3.4-5.0); Alkaline Phosphatase 75 U/L (46-116); Anion Gap 8.5 mmol/L (3-11); BUN 32 mg/dL (7-18); Bilirubin, Total 0.3 mg/dL (0.2-1.0); CO2 23.5 mmol/L (21.0-32.0); CREATININE 1.2 mg/dL (0.55-1.02); Chloride 104 mmol/L (98-107); Glucose 236 mg/dL (74-106); Lipase 45 U/L (73-393); Potassium 5.3 mmol/L (3.5-5.1); Sodium 136 mmol/L (136-145); Total Protein 7.7 g/dL (6.4-8.2); Troponin I < 50 ng/L (<or=60)
--- NOTE | 2021-09-19 20:50 | NUR.NOTE ---
yoly headed to CT, no s.s of distress noted. CT transport by her side.Nursing Note:
--- NOTE | 2021-09-19 21:10 | DI.VRAD_ITS ---
PROCEDURE INFORMATION: Exam: CT Head Without Contrast Exam date and time: 09/19/2021 20:50 Age: 86 years old Clinical indication: Other: Syncopal episode TECHNIQUE: Imaging protocol: Computed tomography of the head without contrast. COMPARISON: CT HEAD WO 01/12/2019 16:04 FINDINGS: Brain: Physiologic calcification in the basal ganglia. Atrophy and chronic appearing white matter changes. Asymmetric white matter disease most pronounced right frontal lobe pattern similar to prior. No edema or hemorrhage. Cerebral ventricles: Dilation of the ventricular system greater than expected for the degree of atrophy. Caliber of the ventricles is similar to prior. Paranasal sinuses: No significant appearing sinusitis. Mastoid air cells: No mastoid effusion. Bones/joints: No acute fracture. Soft tissues: No suspicious lesions. IMPRESSION: 1. No acute intracranial findings. 2. Consider normal pressure hydrocephalus. Would be similar to prior. Dictated and Authenticated by: Lima Gregory MD. Ordering:CLAUDIA Akhtar MD
[2021-09-19] MEDS: Normal Saline 500 ML IV (21:21)
[2021-09-19] MEDS: Ondansetron 4 MG/2 ML VIAL IVP (21:21)
--- NOTE | 2021-09-19 21:26 | DI.VRAD_ITS ---
PROCEDURE INFORMATION: Exam: CT Abdomen And Pelvis Without Contrast Exam date and time: 09/19/2021 8:57 PM Age: 86 years old Clinical indication: Nausea and vomiting; Prior surgery; Patient HX: N/v/diarrhea, abdominal pain TECHNIQUE: Imaging protocol: Computed tomography of the abdomen and pelvis without contrast. COMPARISON: CT ABDOMEN PELVIS W 06/05/2019 9:59 PM FINDINGS: Lungs: Mild linear scar/atelectasis noted in the left lower lobe. Diaphragm: Mild hiatal hernia. Liver: Unremarkable noncontrast liver imaging. Gallbladder and bile ducts: The gallbladder is surgically absent. Negative for biliary ductal dilatation. Pancreas: Atrophic pancreas. No inflammatory changes. Spleen: Normal. No splenomegaly. Adrenal glands: Normal. No mass. Kidneys and ureters: No hydronephrosis. Nondilated ureters. No stones. Stomach and bowel: Unremarkable stomach. Large diverticulum noted at the 2nd portion of the duodenum, 4 cm diameter. No inflammatory changes observed at the diverticulum. Mild fat stranding noted around loops of jejunum. No abnormal bowel distension. Normal terminal ileum. Negative for inflammatory changes around the colon. Most of colon is collapsed. Scattered diverticula are present in the colon. Appendix: Normal appendix. Intraperitoneal space: No free fluid. No free air. No abscess. Vasculature: Mild vascular calcifications. No aneurysm. Lymph nodes: Unremarkable. No enlarged lymph nodes. Urinary bladder: Unremarkable as visualized. Reproductive: Unremarkable as visualized. Bones/joints: Moderate levoscoliosis. Multilevel degenerative disc disease and facet arthropathy. Mild narrowing noted in both hips. Soft tissues: Unremarkable. IMPRESSION: 1. Infectious or inflammatory enteritis suspected in the mid small bowel. 2. No bowel obstruction. 3. No abscess. Dictated and Authenticated by: James Brito MD. Ordering:CLAUDIA Akhtar MD
[2021-09-19] MEDS: metroNIDAZOLE 500 MG TAB, 3 TABS/BTL PO (21:57)
[2021-09-19] MEDS: metroNIDAZOLE 500 MG TAB PO (21:57)
[2021-09-19] MEDS: Acetaminophen 500 MG TAB PO (21:59)
== END 2021-09-19 22:16 | disposition home or self-care (01) ==
PROVIDERS: Emergency Provider Registered Nurse Emergency; PCP Family Medicine
DX: K52.9 Noninfective gastroenteritis and colitis, unspecified (principal); E11.9 Type 2 diabetes mellitus without complications; I10 Essential (primary) hypertension; Z79.4 Long term (current) use of insulin; Z90.49 Acquired absence of other specified parts of digestive tract; Z90.710 Acquired absence of both cervix and uterus; D72.829 Elevated white blood cell count, unspecified; R55 Syncope and collapse
CPT/HCPCS: 36415; 36416; 80053; 82962; 83690; 93005; 96361; 96374; 99284; 70450; 74176; 83735; 84484; 85025; 93010; J2405

== ENCOUNTER 2021-11-02 16:34 | Outpatient (REF) | payer OTHER, SELFPAY ==
[2021-11-02 13:51] LABS: Bilirubin Negative (Negative); Blood Small (Negative); Clarity Sl Cloudy (Clear); Glucose Negative (Negative); Ketones Negative (Negative); Leukocyte Esterase Moderate (Negative); Nitrite Negative (Negative); Specific Gravity 1.015 (1.005-1.025); Urobilinogen 0.2 EU/dL (Up TO 0.2); pH 5.5 (5-8)
[2021-11-02 14:01] LABS: Bacteria Many HPF (Negative); C & S Indicated? Yes; Casts Negative LPF (Negative); Crystals Negative HPF (Negative); Epithelial Cells Few HPF (Negative); Mucus Heavy (Negative); Other Cells Negative (Negative); WBC >50 HPF (0-5)
== END 2021-11-02 16:35 | disposition home or self-care (01) ==
LOC: LBN 16:34
PROVIDERS: PCP Family Medicine; Visit Provider Physician Assistant
DX: N39.0 Urinary tract infection, site not specified (principal)
CPT/HCPCS: 81003; 81015; 87086

== ENCOUNTER 2021-11-26 14:01 | Outpatient (REF) | payer OTHER, SELFPAY ==
[2021-11-26 21:37] LABS: Bilirubin Negative (Negative); Blood Moderate (Negative); Clarity Turbid (Clear); Glucose Negative (Negative); Ketones Negative (Negative); Leukocyte Esterase Large (Negative); Nitrite Negative (Negative); Specific Gravity >= 1.030 (1.005-1.025); Urobilinogen 0.2 EU/dL (Up TO 0.2)
[2021-11-26 21:44] LABS: C & S Indicated? Yes; WBC >50 HPF (0-5)
== END 2021-11-26 14:02 | disposition home or self-care (01) ==
LOC: LBN 14:01
PROVIDERS: PCP Family Medicine; Visit Provider Nurse Practitioner Family
DX: R39.9 Unspecified symptoms and signs involving the genitourinary system (principal)
CPT/HCPCS: 81003; 81015; 87086

== ENCOUNTER 2021-11-28 09:14 | Outpatient (REF) | payer OTHER, SELFPAY ==
[2021-11-29 11:31] LABS: Campylobacter PCR Negative (Negative); Salmonella PCR Negative (Negative); Shiga Toxin PCR Negative (Negative); Shigella/Enteroinvasive Ecoli Negative (Negative)
== END 2021-11-28 09:15 | disposition home or self-care (01) ==
LOC: LBN 09:14
PROVIDERS: PCP Family Medicine; Visit Provider Nurse Practitioner Family
DX: R19.7 Diarrhea, unspecified (principal)
CPT/HCPCS: 87505; 87177

== ENCOUNTER 2021-12-24 10:41 | Outpatient (CLI) | payer OTHER, SELFPAY ==
[2021-12-24 12:28] LABS: HGB 12.3 g/dL (11.2-15.7); MCH 31.5 pg (27.0-33.0); MCHC 31.5 % (32.0-36.0); MCV 100 fL (80-95); MPV 10.9 fL (8.0-11.0); Platelet Count 275 10^3/uL (130-400); RDW 13.5 % (11.7-14.6); RDW-SD 50.1 fL; WBC 9.52 10^3/uL (4.4-10.8)
[2021-12-24 13:22] LABS: ALT 18 U/L (14-59); AST 12 U/L (15-37); Albumin 3.5 g/dL (3.4-5.0); Alkaline Phosphatase 59 U/L (46-116); Anion Gap 8.1 mmol/L (3-11); BUN 24 mg/dL (7-18); Bilirubin, Total 0.4 mg/dL (0.2-1.0); CO2 28.9 mmol/L (21.0-32.0); CREATININE 0.9 mg/dL (0.55-1.02); Calcium 9.1 mg/dL (8.5-10.1); Chloride 103 mmol/L (98-107); Estimated GFR 62.26 (mL/min/1.73m2); Glucose 167 mg/dL (74-106); Potassium 4.3 mmol/L (3.5-5.1); Sodium 140 mmol/L (136-145); Total Protein 7.5 g/dL (6.4-8.2)
== END 2021-12-24 10:42 | disposition home or self-care (01) ==
LOC: LOS 10:41
PROVIDERS: PCP Family Medicine; Referring Provider Family Medicine; Visit Provider Family Medicine
DX: E87.5 Hyperkalemia (principal); K62.5 Hemorrhage of anus and rectum; K64.9 Unspecified hemorrhoids; L60.2 Onychogryphosis
CPT/HCPCS: 36415; 80053; 85027

== ENCOUNTER 2022-01-06 18:30 | Outpatient (REF) | payer OTHER, SELFPAY ==
[2022-01-06 21:58] LABS: Bilirubin Negative (Negative); Blood Small (Negative); Clarity Cloudy (Clear); Glucose Negative (Negative); Ketones Negative (Negative); Leukocyte Esterase Moderate (Negative); Nitrite Negative (Negative); Urobilinogen 0.2 EU/dL (Up TO 0.2)
[2022-01-06 22:29] LABS: RBC 0-2 HPF (0-2); WBC >50 HPF (0-5)
[2022-01-06 22:30] LABS: Bacteria Many HPF (Negative); C & S Indicated? Yes; Crystals Negative HPF (Negative); Epithelial Cells Few HPF (Negative); Mucus Negative (Negative)
== END 2022-01-06 18:31 | disposition home or self-care (01) ==
LOC: LBN 18:30
PROVIDERS: PCP Family Medicine; Visit Provider Physician Assistant Medical
DX: R39.9 Unspecified symptoms and signs involving the genitourinary system (principal)
CPT/HCPCS: 87077; 81003; 81015; 87086; 87186

== ENCOUNTER 2022-02-08 11:10 | Outpatient (CLI) | payer OTHER, SELFPAY ==
[2022-02-08 11:51] LABS: Hemoglobin A1C 7.8 % (<5.7)
== END 2022-02-08 11:11 | disposition home or self-care (01) ==
LOC: LBO 11:12
PROVIDERS: PCP Family Medicine; Visit Provider Family Medicine
DX: E11.9 Type 2 diabetes mellitus without complications (principal)
CPT/HCPCS: 36415; 83036

== ENCOUNTER 2022-04-22 16:20 | Outpatient (REF) | payer OTHER, SELFPAY | END 2022-04-22 16:21 | disposition home or self-care (01) | LOC: LBN 16:20 | PROVIDERS: PCP Family Medicine; Visit Provider Obstetrics & Gynecology | DX: R30.0 Dysuria (principal) | CPT/HCPCS: 87077; 87086; 87186 ==

== ENCOUNTER 2022-04-26 13:36 | Outpatient (CLI) | payer OTHER, SELFPAY | END 2022-04-26 13:37 | disposition home or self-care (01) | LOC: LBO 13:36 | PROVIDERS: PCP Family Medicine; Visit Provider Urology | DX: R30.0 Dysuria (principal); Z87.440 Personal history of urinary (tract) infections | CPT/HCPCS: 81003; 99214 ==

== ENCOUNTER 2022-04-26 17:18 | Outpatient (REF) | payer OTHER, SELFPAY | END 2022-04-26 17:19 | disposition home or self-care (01) | LOC: LBN 17:18 | PROVIDERS: PCP Family Medicine; Visit Provider Urology | DX: N39.0 Urinary tract infection, site not specified (principal) | CPT/HCPCS: 87077; 87086; 87186 ==

== ENCOUNTER → 2022-05-13 13:38 | Outpatient (BNVA) | payer OTHER, SELFPAY | PROVIDERS: PCP Family Medicine; Referring Provider Family Medicine; Visit Provider Nurse Practitioner Gerontology | DX: R30.0 Dysuria (principal); Z87.440 Personal history of urinary (tract) infections | CPT/HCPCS: 81003; 99213 ==

== ENCOUNTER 2022-05-13 18:18 | Outpatient (REF) | payer OTHER, SELFPAY ==
[2022-05-13 17:26] LABS: Bilirubin Negative (Negative); Blood Moderate (Negative); Clarity Cloudy (Clear); Glucose Negative (Negative); Ketones Negative (Negative); Leukocyte Esterase Moderate (Negative); Nitrite Negative (Negative); Urobilinogen 0.2 mg/dL (Up to 0.2); pH 5.5 (5-8)
[2022-05-13 17:41] LABS: Bacteria Moderate HPF (Negative); C & S Indicated? C&S Done As Ordered; Casts Negative LPF (Negative); Crystals Negative HPF (Negative); Epithelial Cells Few HPF (Negative); Mucus Trace (Negative); WBC 20-50 HPF (0-5)
== END 2022-05-13 18:19 | disposition home or self-care (01) ==
LOC: LBN 18:18
PROVIDERS: PCP Family Medicine; Visit Provider Nurse Practitioner Gerontology
DX: N39.0 Urinary tract infection, site not specified (principal)
CPT/HCPCS: 81003; 81015; 87086

== ENCOUNTER → 2022-06-10 15:20 | Outpatient (BNVA) | payer OTHER, SELFPAY | PROVIDERS: PCP Family Medicine; Visit Provider Nurse Practitioner Gerontology | DX: R30.0 Dysuria (principal); Z87.440 Personal history of urinary (tract) infections | CPT/HCPCS: 99214 ==

== ENCOUNTER 2022-06-26 08:29 | Observation (INO) | payer OTHER, SELFPAY ==
[2022-06-26] VITALS (83 sets, daily range): BP systolic 67–143; BP diastolic 41–71; PULSE 75–103; RESP 15–28; TEMP 37–37.1; O2SAT 91–99
--- NOTE | 2022-06-26 08:30 | RT.EKG_ITS ---
APPROVED REPORT Exam: Resting ECG Reason for Exam: AMS Patient Location: E HR:81 bpm ECG Measurements Heart Rate 81 AXIS OK 136 P 58 QRSd 96 QRS -22 QT 357 T 25 QTc 414 Conclusion Sinus rhythm...normal P axis, V-rate 60- 99 Inferior infarct, old...Q >35mS, II III aVF
--- NOTE | 2022-06-26 08:45 | DI.CT_ITS ---
Exam(s) CT CHEST PE ABD PELVIS W EXAM: CT CHEST PE ABD PELVIS W CLINICAL HISTORY: cough, dyspnea, right sided abdominal pain. TECHNIQUE: Imaging Protocol: Axial CT angiography was performed with multi-slice acquisition and mu lti-planar and/or 3D reconstructions. CONTRAST MATERIAL: Intravenous: Omnipaque 350contrast volume:100 mL COMPARISON: CT CT ABDOMEN PELVIS WO from 09/19/2021 FINDINGS: The examination is limited due to patient motion artifact. CHEST: Tracheobronchial tree: Patent where visualized. Pulmonary parenchyma: No consolidation or dominant measurable mass. No architectural distortion. Pulmonary Arteries: No evidence of filling defect to suggest pulmonary emboli. Mediastinum and [place]: No dominant adenopathy or fluid collection. The esophagus is unremarkable. Ther e is a small hiatal hernia. Visualized thyroid gland: Unremarkable. Pleura: No effusion or pneumothorax. Heart: The heart is not dilated. Mild coronary artery calcification is present. No pericardial effus ion. Aorta: Thoracic aorta non-dilated. No evidence of dissection. Atherosclerosis is present. Bones: Within normal limits for the patient's age. Soft tissues: Unremarkable. ABDOMEN: Liver: Normal density. No measurable mass. Portal, Superior Mesenteric, and Splenic Veins: Unremarkable. Gallbladder and Biliary Tract: Status post cholecystectomy. Mild biliary ductal dilatation. This li nicky reflects post cholecystectomy state. Pancreas: Stable calcification in or near the pancreatic head. The remainder of the pancreas shows a trophy. Spleen: Normal. Adrenals: No masses seen. Kidneys: Normal size, contour and axis. No radiodense stones or obstructive uropathy. No suspicious m ass is seen. Abdominal Aorta: Abdominal portion non-dilated. No significant stenosis and no occlusion in the tova c, mesenteric or renal arteries. Bowel: No obstruction or bowel wall thickening. No evidence of appendicitis. There is a large duoden al diverticulum adjacent to the pancreatic head. Peritoneal Cavity: No ascites, collection or mesenteric inflammatory response. No free air. Lymph Nodes: Within normal limits. Bones: Within normal limits for the patient's age. There is a left convex lumbar scoliosis. Soft Tissues: Unremarkable. PELVIS: Bladder: There is thickening of the wall of the urinary bladder. Reproductive Organs: Status post hysterectomy. Lymph Nodes: Within normal limits. Bones: Within normal limits. IMPRESSION: 1. No evidence pulmonary embolism, thoracic aortic dissection or aneurysm. 2. No acute pulmonary process. 3. No acute abdominal or pelvic process. 4. Stable findings in the abdomen and pelvis as described above. RADIATION DOSE DELIVERED: 1,299.78mGy.cm Total DLP DATA REPOSITORY: All CT scans at this facility are submitted to the National Radiology Data Registry (NRDR) Dose Index Registry (DIR) with the [employer] ([employer]). RADIATION OPTIMIZATION: All CT scans at this facility use at least one of these dose optimization te chniques: automated exposure control; mA and/or kV adjustment per patient size (includes targeted exa ms where dose is matched to clinical indication); or iterative reconstruction.
--- NOTE | 2022-06-26 08:45 | DI.CT_ITS ---
Exam(s) CT HEAD CERVICAL SPINE WO EXAM: CT HEAD CERVICAL SPINE WO CLINICAL HISTORY: fall, confusion. TECHNIQUE: Imaging Protocol: Axial computed tomography images with coronal and sagittal reformatted images were created and reviewed COMPARISON: CT CT HEAD WO from 09/19/2021 FINDINGS: The examination is limited due to patient motion artifact. CT Head: Ventricles and Extra axial spaces: Normal in size and morphology for the patient's age. Hemorrhage: There is a small area of hyperdensity in the left frontal lobe adjacent to the calvarium. This likely reflects artifact. Small hemorrhagic contusion cannot be entirely excluded. Cerebral parenchyma: There is no evidence of an acute territorial infarct. There are areas of decrea sed attenuation in the white matter consistent with small vessel ischemic disease. Midline shift: None. Brainstem/Cerebellum: Normal. Calvarium: Normal. Visualized Paranasal sinuses/Mastoids: Clear. Soft Tissues: Unremarkable. CT Cervical Spine: Bones: No acute fracture or subluxation. Degenerative changes are present throughout the cervical spi ne. There is mild reversal of the normal cervical lordosis. Mild anterolisthesis of C4 on C5. Soft Tissues: Unremarkable. Lung Apices: Clear. IMPRESSION: 1. Area of small hyperintensity in the left frontal lobe. This may be secondary to artifact which li mits examination. Small hemorrhagic contusion cannot be entirely excluded. 2. No acute fracture or subluxation in the cervical spine. RADIATION DOSE DELIVERED: 1,206.64mGy.cm Total DLP DATA REPOSITORY: All CT scans at this facility are submitted to the National Radiology Data Registry (NRDR) Dose Index Registry (DIR) with the [employer] ([employer]). RADIATION OPTIMIZATION: All CT scans at this facility use at least one of these dose optimization te chniques: automated exposure control; mA and/or kV adjustment per patient size (includes targeted exa ms where dose is matched to clinical indication); or iterative reconstruction.
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
[2022-06-26 09:05] LABS: BE (Venous) 2 mmol/L (-2-3); HCO3 (Venous) 27 mmol/L (23-28); O2 Sat (Venous) 67 %; TCO2 (Venous) 25 mmol/L (24-29); pCO2 (Venous) 47 mmHg (41-51); pH (Venous) 7.37 (7.31-7.41); pO2 (Venous) 36 mmHg
[2022-06-26 09:08] LABS: Abs Immature Grans 0.02 10^3/uL (0.0-0.06); Absolute Basophil Count 0.04 10^3/uL (0.0-0.2); Absolute Eosinophil Count 0.03 10^3/uL (0.0-0.7); Absolute Lymphocyte Count 0.74 10^3/uL (1.2-3.4); Absolute Monocyte Count 1.01 10^3/uL (0.1-0.8); Absolute Neutrophil Count 6.95 10^3/uL (1.2-6.7); Basophils % 0.5; Eosinophils % 0.3; HCT 36.9 % (36.0-46.0); HGB 11.8 g/dL (11.2-15.7); Immature Grans % 0.2; Lymphocytes % 8.4; MCV 97 fL (80-95); MPV 10.2 fL (8.0-11.0); Monocytes % 11.5; Neutrophils % 79.1; Platelet Count 222 10^3/uL (130-400); RBC 3.81 10^6/uL (3.93-5.22); RDW 12.9 % (11.7-14.6); RDW-SD 45.8 fL; WBC 8.79 10^3/uL (4.4-10.8)
[2022-06-26] MEDS: Ondansetron 4 MG/2 ML VIAL IVP (09:08)
[2022-06-26] MEDS: Normal Saline 1,000 ML 1000 ML IV (09:08)
[2022-06-26 09:26] LABS: Lipase 13 U/L (16-77); Troponin I < 50 ng/L (<or=60)
[2022-06-26 09:31] LABS: ALT 17 U/L (14-59); AST 15 U/L (15-37); Albumin 3.5 g/dL (3.4-5.0); Alkaline Phosphatase 71 U/L (46-116); Anion Gap 7.5 mmol/L (3-11); BUN 20 mg/dL (7-18); Bilirubin, Total 0.4 mg/dL (0.2-1.0); CO2 27.5 mmol/L (21.0-32.0); Calcium 9.1 mg/dL (8.5-10.1); Chloride 103 mmol/L (98-107); Estimated GFR 54.53 (mL/min/1.73m2); Glucose 168 mg/dL (74-106); Magnesium 1.8 mg/dL (1.8-2.4); Sodium 138 mmol/L (136-145); TSH (W/Ref FT4) 0.55 uIU/mL (0.36-3.74); Total Protein 7.4 g/dL (6.4-8.2)
[2022-06-26 09:47] LABS: Influenza A PCR Negative (Negative); Influenza B PCR Negative (Negative); RSV PCR Negative (Negative)
[2022-06-26] MEDS: Omnipaque 350 MG/ML 100 ML BTL IJ (09:56)
[2022-06-26] MEDS: Normal Saline - Diluent 50 ML VIAL IJ (09:58)
[2022-06-26 10:06] LABS: Bilirubin Negative (Negative); Blood Moderate (Negative); Clarity Cloudy (Clear); Glucose Negative (Negative); Ketones Negative (Negative); Leukocyte Esterase Large (Negative); Nitrite Positive (Negative); Specific Gravity >= 1.030 (1.005-1.025); Urobilinogen 0.2 mg/dL (Up to 0.2)
[2022-06-26 10:14] LABS: COVID-19 PCR Positive (Negative); Source Nasopharynx
[2022-06-26 10:20] LABS: C & S Indicated? Yes; WBC >50 HPF (0-5)
--- NOTE | 2022-06-26 10:31 | DI.VRAD_ITS ---
PROCEDURE INFORMATION: Exam: CT Head Without Contrast Exam date and time: 06/26/2022 9:42 AM Age: 87 years old Clinical indication: Other: Confusion; Other: Fall TECHNIQUE: Imaging protocol: Computed tomography of the head without contrast. COMPARISON: CT HEAD WO 09/19/2021 8:50 PM FINDINGS: Brain: Ill-defined hyperdensity in the left frontal lobe subjacent to the calvarium, suboptimally evaluated secondary to artifact but cannot exclude small hemorrhagic contusion. Generalized parenchymal volume loss. Chronic ischemic changes. Cerebral ventricles: Ventricular prominence disproportionate to sulci suggesting hydrocephalus. This is unchanged. Paranasal sinuses: Mucosal thickening in the nasal cavity and ethmoid air cells. Bilateral bryson bullosa. Mastoid air cells: No mastoid effusion. Bones/joints: No acute cranial vault fracture seen. Soft tissues: No acute findings. IMPRESSION: 1. Hyperdensity in the left frontal lobe, suboptimally evaluated secondary to artifact but suspicious for small hemorrhagic contusion. 2. Additional studies dictated separately. 3. THIS REPORT CONTAINS FINDINGS THAT MAY BE CRITICAL TO PATIENT CARE. The findings were verbally communicated via telephone conference with James Easley at 10:29 AM EDT on 06/26/2022. The findings were acknowledged and understood. PROCEDURE INFORMATION: Exam: CT Cervical Spine Without Contrast Exam date and time: 06/26/2022 9:42 AM Age: 87 years old Clinical indication: Other: Confusion; Other: Fall TECHNIQUE: Imaging protocol: Computed tomography of the cervical spine without contrast. COMPARISON: No relevant prior studies are available for comparison. FINDINGS: Limitations: Mild motion artifact. Bones/joints: No acute cervical spine fracture identified. Reversal of the normal cervical lordosis may reflect positioning or muscle spasm; correlate clinically. Anterolisthesis of C4 on C5. Extensive degenerative changes with prominent disc bulges at C3-C4, C4-C5, C6-C7. Lungs: No acute findings. Lymph nodes: Bilateral cervical lymph nodes. Soft tissues: See Bones/joints finding. IMPRESSION: 1. No acute cervical spine fracture identified. 2. Additional studies dictated separately. Dictated and Authenticated by: Penny Corley MD. Ordering:VINNIE Ramirez MD
--- NOTE | 2022-06-26 10:49 | DI.VRAD_ITS ---
PROCEDURE INFORMATION: Exam: CTA Chest With Contrast CTA Abdomen With Contrast Exam date and time: 06/26/2022 9:56 AM Age: 87 years old Clinical indication: Injury or trauma; Fall; Other: Unknown; Blunt trauma; Lower abdominal or back area; Right TECHNIQUE: Imaging protocol: Computed tomographic angiography of the chest with contrast. Computed tomographic angiography of the abdomen with contrast. 3D rendering (Not supervised by radiologist): MIP and/or 3D reconstructed images were created by the technologist. COMPARISON: 1. CT HEAD CERVICAL SPINE WO 06/26/2022 9:[address] abdomen and pelvis 09/19/2021 FINDINGS: VASCULATURE: Pulmonary arteries: Normal. No pulmonary emboli. Aorta: Atherosclerosis. No aortic aneurysm. No aortic dissection. Celiac trunk and mesenteric arteries: Somewhat motion limited evaluation of the celiac axis origin. Distal celiac and branch vessels enhance normally. No occlusion or significant stenosis. Renal arteries: No occlusion or significant stenosis. CHEST: Lungs: No consolidation. No masses. Pleural spaces: No pneumothorax. No pleural effusion. Heart: No cardiomegaly. No pericardial effusion. Mild coronary artery calcifications. ABDOMEN AND PELVIS: Liver: No mass. No injury. Gallbladder and bile ducts: Cholecystectomy. [id number]-[id number] intra and extrahepatic biliary ductal dilation, unchanged. Pancreas: Unremarkable. Spleen: Unremarkable. No splenomegaly. Adrenal glands: No mass. Kidneys and ureters: Unremarkable. No solid mass. No hydronephrosis. Stomach and bowel: Small sliding hiatal hernia. No obstruction. No mucosal thickening. Intraperitoneal space: No free air. No significant fluid collection. Reproductive: Post hysterectomy. Lymph nodes: Calcified jerman hepatis nodes. Bones/joints: Unremarkable. No acute fracture. Soft tissues: Unremarkable. IMPRESSION: 1. No acute or traumatic findings within the chest, abdomen, or pelvis. 2. No evidence of pulmonary embolism or acute aortic findings. 3. Post cholecystectomy with unchanged [id number] biliary ductal dilation. Dictated and Authenticated by: Nkechi Diez MD. Ordering:VINNIE Ramirez MD
[2022-06-26] MEDS: levoFLOXacin 750 MG/150 ML BAG 100 MG IVPB (11:23)
[2022-06-26 12:39] LABS: Troponin I < 50 ng/L (<or=60)
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
[2022-06-26] MEDS: Enoxaparin 40 MG/0.4 ML SYR SC (15:46)
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
--- NOTE | 2022-06-26 17:30 | NUR.NOTE ---
RN feeds patient a little bit of chicken soup, custard and milk.Nursing Note:
--- NOTE | 2022-06-26 17:52 | NUR.NOTE ---
Patient has spoken to her son, granddaughter and on the phone since arriving in the ICU much to her delight. Patient feeling comfortable on unit and is okay with spending the night.Nursing Note:
[2022-06-26] MEDS: Pregabalin 50 MG CAP PO (19:55)
[2022-06-26] MEDS: busPIRone 5 MG TAB PO (19:56)
[2022-06-26] MEDS: Pantoprazole 40 MG TABCR PO (19:56)
[2022-06-26] MEDS: Prochlorperazine 10 MG/2 ML VIAL 5 MG IVP (20:38)
[2022-06-27] VITALS (7 sets, daily range): BP systolic 105–118; BP diastolic 53–74; PULSE 63–77; RESP 17; TEMP 37.2; O2SAT 94–95
[2022-06-27] MEDS: Bimatoprost 0.01% 2.5 ML BTL OU (01:53)
[2022-06-27 06:35] LABS: Abs Immature Grans 0.02 10^3/uL (0.0-0.06); Absolute Basophil Count 0.02 10^3/uL (0.0-0.2); Absolute Eosinophil Count 0.01 10^3/uL (0.0-0.7); Absolute Lymphocyte Count 1.52 10^3/uL (1.2-3.4); Absolute Monocyte Count 1.14 10^3/uL (0.1-0.8); Absolute Neutrophil Count 3.95 10^3/uL (1.2-6.7); Basophils % 0.3; Eosinophils % 0.2; HCT 32.3 % (36.0-46.0); HGB 10.5 g/dL (11.2-15.7); Immature Grans % 0.3; Lymphocytes % 22.8; MCH 31.2 pg (27.0-33.0); MCHC 32.5 % (32.0-36.0); MCV 96 fL (80-95); MPV 11.1 fL (8.0-11.0); Monocytes % 17.1; Neutrophils % 59.3; Platelet Count 194 10^3/uL (130-400); RBC 3.37 10^6/uL (3.93-5.22); RDW 13.2 % (11.7-14.6); RDW-SD 46.9 fL; WBC 6.66 10^3/uL (4.4-10.8)
[2022-06-27 06:51] LABS: Anion Gap 9.4 mmol/L (3-11); BUN 20 mg/dL (7-18); CO2 23.6 mmol/L (21.0-32.0); CREATININE 0.9 mg/dL (0.55-1.02); Calcium 8.7 mg/dL (8.5-10.1); Chloride 105 mmol/L (98-107); Estimated GFR 61.87 (mL/min/1.73m2); Glucose 103 mg/dL (74-106); Magnesium 1.7 mg/dL (1.8-2.4); Potassium 3.7 mmol/L (3.5-5.1); Sodium 138 mmol/L (136-145)
[2022-06-27] MEDS: Citalopram 10 MG TAB PO (08:24)
[2022-06-27] MEDS: Pregabalin 50 MG CAP PO (08:24)
[2022-06-27] MEDS: Cholecalciferol (Vitamin D3) 1,000 UNIT TAB 2000 UNITS PO (08:24)
[2022-06-27] MEDS: busPIRone 5 MG TAB PO ×2 (08:24→13:49)
[2022-06-27] MEDS: Mirabegron 25 MG TABCR PO (08:26)
[2022-06-27] MEDS: Timolol 0.5% 5 ML BTL OP (08:34)
[2022-06-27] MEDS: Triamcinolone 0.1% CR 15 GM TUBE TP (08:34)
[2022-06-27] MEDS: Diclofenac 1% Gel 100 GM TUBE TP (12:29)
[2022-06-27] MEDS: Acetaminophen 500 MG TAB 1000 MG PO (12:29)
[2022-06-27] MEDS: Insulin Aspart 300 UNITS/3 ML PEN SC (12:30)
[2022-06-27] MEDS: Normal Saline Flush 10 ML SYR IVP (13:49)
[2022-06-27] MEDS: Fosfomycin Tromethamine 3 GM PACKET PO (13:49)
[2022-06-27] MEDS: MAGNESIUM SULFATE 2 GM/50 ML BAG IVPB (13:51)
--- NOTE | 2022-06-27 16:04 | CMDISCH_ITS ---
- If Service Date Differs Date of service: 06/27/22 Time of Service: 16:04 LACE Index Scoring Tool - Questions: Length of Stay (in days): 1 Comorbidities: Diabetes w/o Complication E.D. Visits: 2 Care Management Discharge Reason for Hospitalization: Fall, Abdominal pain, Acute UTI, COVID, General weakness Discharge Plan: Vanessa is discharged home with New [facility] RN/PT/OT/BRIM CURLER and resumption of community support services through [facility]. She is driven home via private vehicle with . Vanessa will follow up with community providers and her discharge plan of care as prescribed. Patient/Family Education Needs: Review discharge instructions, limitations, medications and plan to follow up with PCP. Discuss ask me three. Services Needed at Discharge: Home Health Care Services (New [facility] RN/PT/OT/BRIM CURLER, CARINA martinezied Danielle at [facility] )
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
--- NOTE | 2022-06-28 09:52 | PDOC.HHF2F ---
Home Health Referral Home Health Orders Clinical synopsis of why skilled professionals are needed: This is an 87 yo female with pmhx of diabetes and dementia, who presented to the [facility] ED via ems on 06/27/2022 with her ,? He offered the history of patient getting up to use the bathroom and got weak, he lowered her to the ground and couldn't get her up so he called EMS. He noted she has been intermittently more confused the last few weeks. No fevers, but did have a bit of a cough, no chest pain though when she coughed she did feel short of breath. She did have some nausea, no vomiting and intermittent right sided abdominal pain. In the ED she was oriented to person and place but not date or time, alert and in no distress. The patient was positive for Covid 19, she had no oxygen requirement, UA positive for UTI, imaging negative. She is stable and at baseline neurologically. She was placed on observation on the medical unit.? She was treated for her UTI. She improved and was discharged to home.? She continued to have no oxygen requirements and vital signs were stable.? Her is concerned that she is getting weaker and he isn?t sure if he is strong enough to help her.? Recommend HH PT/OT assessment and treatment, perhaps she can get a little stronger.? is in agreement with this plan.? He did refuse SNF for her. Medical diagnosis necessitation home health referral: Covid 19; Dementia; Weak Registered Nurse: Check all that apply Instruct on new or changed medication(s)/assess compliance: Ordered Physical Therapist: Check all that apply Increase strength & endurance for safe mobility at home: Ordered To design/establish home maintenance program: Ordered Fall reduction therapy program for patient with history of frequent falls: Ordered Home safety evaluation and teaching/gait training including stair management (if applicable): Ordered Occupational Therapist: Evaluate and treat for patient unable to perform ADL/IADL/self-care: Ordered Upper extremity strengthening, range and motion: Ordered Engraver Machine: Assist with community resources: Ordered Assist with terminal supervisor care planning: Ordered Precautions List Precautions: Covid 19 Home Bound Status Requires the aid of supportive device (check all that apply): Wheelchair Patient has a condition such that leaving home is medically contraindicated (Describe): Dementia Describe why leaving home would require a considerable and taxing effort: Requires frequent rest periods and Confusion Encounter Date and Reason: I certify that a FTF encounter for this patient was performed on June 28, 2022 and that such encounter was related to the primary reason the patient requires home health services. The encounter was conducted in the following manner: By me as the certifying physician, HAR[employer]ST FIELD TICKETER, PA or By an inpatient physician, HARVEST FIELD TICKETER or PA during an inpatient stay who communicated findings to me, Certification And Authentication I certify that I composed the above information based on my clinical judgment relating to this patient's medical condition and, if applicable, clinical findings communicated to me by the NPP or inpatient physician who performed the FTF encounter. Name of Provider that will be monitoring home health services: An Valente
== END 2022-06-27 17:00 | disposition home health service (06) ==
LOC: ER 13:05 → ICU 14:38
PROVIDERS: Nurse Practitioner Family; Admitting Provider Internal Medicine; Emergency Provider Emergency Medicine; PCP Family Medicine; Visit Provider Internal Medicine
DX: U07.1 COVID-19 (principal); N39.0 Urinary tract infection, site not specified; R10.9 Unspecified abdominal pain; R53.1 Weakness; R26.2 Difficulty in walking, not elsewhere classified; W19.XXXA Unspecified fall, initial encounter; Z79.4 Long term (current) use of insulin; R41.3 Other amnesia; I25.2 Old myocardial infarction; Z66 Do not resuscitate; E11.65 Type 2 diabetes mellitus with hyperglycemia; F41.9 Anxiety disorder, unspecified; J45.909 Unspecified asthma, uncomplicated
CPT/HCPCS: 36415; 71275; 74177; 80048; 80053; 82805; 83690; 87077; 87637; 93005; 96361; 96365; 96366; 96372; 96375; 99285; J1650; 70450; 72125; 81003; 81015; 83735; 84443; 84484; 85025; 85610; 85730; 87086; 87186; 93010; 94667; 99222; 99239; G0378; J0780; J1956; J2405; J3490

== ENCOUNTER 2022-08-05 21:02 | Outpatient (REF) | payer OTHER, SELFPAY ==
[2022-08-05 21:18] LABS: Bilirubin Negative (Negative); Blood Moderate (Negative); Clarity Cloudy (Clear); Glucose Negative (Negative); Ketones Negative (Negative); Leukocyte Esterase Large (Negative); Nitrite Negative (Negative); Specific Gravity >= 1.030 (1.005-1.025); Urobilinogen 0.2 mg/dL (Up to 0.2); WBC >50 HPF (0-5); pH 5.5 (5-8)
[2022-08-05 21:19] LABS: C & S Indicated? Yes
== END 2022-08-05 21:03 | disposition home or self-care (01) ==
LOC: LBN 21:02
PROVIDERS: PCP Family Medicine; Visit Provider Nurse Practitioner Family
DX: R35.0 Frequency of micturition (principal)
CPT/HCPCS: 81003; 81015; 87086

== ENCOUNTER 2022-08-24 18:32 | Emergency (ER) | payer OTHER, SELFPAY ==
[2022-08-24 18:36] VITALS: PULSE 66; RESP 18; TEMP 36.7; O2SAT 97
[2022-08-24 18:37] VITALS: BP 139/35
--- NOTE | 2022-08-24 19:45 | DI.RAD_ITS ---
Exam(s) XR PELVIS AP XR FEMUR RT EXAM: XR PELVIS AP and XR femur RT CLINICAL HISTORY: Right hip pain. TECHNIQUE: 2D digital imaging was performed.Six images were obtained. COMPARISON: CR XR hip LT complete AP pelvis from 11/23/2018 FINDINGS: BONES: No acute fracture is present. No bony destructive lesion is seen. JOINTS: No dislocation present. Degenerative changes are seen in the hips bilaterally characterized b y joint space narrowing, left greater than right. There also moderate degenerative changes seen in t he lower lumbar spine. The distal aspect of a left convex lumbar scoliosis is also noted. SOFT TISSUE: There is a moderate amount of stool in the colon. Vascular calcifications are present. IMPRESSION: There is no acute fracture or dislocation. DATA REPOSITORY: RADIATION DOSE DELIVERED:
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
[2022-08-24] MEDS: predniSONE 20 MG TAB 40 MG PO (20:20)
[2022-08-24] MEDS: Lidocaine 5% Patch 1 PATCH TP (20:20)
--- NOTE | 2022-08-24 21:10 | DI.VRAD_ITS ---
PROCEDURE INFORMATION: Exam: XR Right Femur Exam date and time: 08/24/2022 8:41 PM Age: 87 years old Clinical indication: Other: Pain TECHNIQUE: Imaging protocol: Radiologic exam of the right femur. Views: 2 views. COMPARISON: CR XR PELVIS AP 08/24/2022 8:37 PM FINDINGS: Bones/joints: No discrete or displaced fracture. No joint dislocation. Soft tissues: No focal abnormality. Vasculature: Scattered vascular calcifications in the right femoral artery. IMPRESSION: No discrete or displaced fracture. Dictated and Authenticated by: Pablo Gonzales MD. Ordering:CLAUDIA Akhtar MD
--- NOTE | 2022-08-24 21:12 | DI.VRAD_ITS ---
PROCEDURE INFORMATION: Exam: XR Pelvis Exam date and time: 08/24/2022 8:37 PM Age: 87 years old Clinical indication: Other: Right hip pain TECHNIQUE: Imaging protocol: Radiologic exam of the pelvis. Views: 1 or 2 view. COMPARISON: CT ABDOMEN PELVIS WO 09/19/2021 8:57 PM FINDINGS: Bones/joints: No discrete or displaced fracture. No joint dislocation. Mild symmetric joint space loss of the hips. Partially visualized degenerative changes of the lower lumbar spine, incompletely evaluated on this exam. Soft tissues: No focal abnormality. IMPRESSION: No discrete or displaced fracture. Dictated and Authenticated by: Pablo Gonzales MD. Ordering:CLAUDIA Akhtar MD
== END 2022-08-24 21:33 | disposition home or self-care (01) ==
PROVIDERS: Emergency Provider Registered Nurse Emergency; PCP Family Medicine
DX: M25.551 Pain in right hip (principal); M16.11 Unilateral primary osteoarthritis, right hip
CPT/HCPCS: 73552; 72170; J7512

== ENCOUNTER 2022-09-13 12:56 | Outpatient (REF) | payer OTHER, SELFPAY ==
[2022-09-13 22:30] LABS: Bilirubin Negative (Negative); Blood Moderate (Negative); Clarity Cloudy (Clear); Glucose 500 mg/dL (Negative); Ketones Negative (Negative); Leukocyte Esterase Moderate (Negative); Nitrite Negative (Negative); Urobilinogen 0.2 mg/dL (Up to 0.2)
[2022-09-13 22:34] LABS: C & S Indicated? Yes; WBC >50 HPF (0-5)
== END 2022-09-13 12:57 | disposition home or self-care (01) ==
LOC: LBN 12:56
PROVIDERS: PCP Family Medicine; Visit Provider Physician Assistant
DX: R39.89 Other symptoms and signs involving the genitourinary system (principal); R82.998 Other abnormal findings in urine; R11.0 Nausea
CPT/HCPCS: 81003; 81015; 87086

== ENCOUNTER 2022-09-14 09:21 | Emergency (ER) | payer OTHER, SELFPAY ==
[2022-09-14 09:16] VITALS: BP 146/114; PULSE 81; RESP 20; TEMP 36.1; O2SAT 97
[2022-09-14 09:22] VITALS: BP 146/114; PULSE 85; O2SAT 96
[2022-09-14 09:24] VITALS: O2SAT 98
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
[2022-09-14 09:30] VITALS: BP 139/66; PULSE 80
--- NOTE | 2022-09-14 09:45 | DI.CT_ITS ---
Exam(s) CT ABDOMEN PELVIS W EXAM: CT ABDOMEN PELVIS W CLINICAL HISTORY: Abdominal pain, Nausea. TECHNIQUE: Imaging Protocol: Axial computed tomography images with coronal and sagittal reformatted images were created and reviewed CONTRAST MATERIAL: Intravenous: Omnipaque 350 Contrast volume:100 ml Oral: / no COMPARISON: CT CT ABDOMEN PELVIS W from 05/14/[address] CHEST PE ABD PELVIS W from 06/26/2022 FINDINGS: ABDOMEN: Lung Bases: Normal where visualized. Small hiatal hernia. Liver: Normal density. No measurable mass. Gallbladder and biliary tract: Status post cholecystectomy. No radiodense calculus stable mild bilia ry. Pancreas: Normal density, no abnormal calcifications or inflammatory process. Spleen: Normal. Kidneys: Normal size, contour and axis. No radiodense stones or obstructive uropathy. No suspicious m asses seen. Adrenal glands: No masses seen. Abdominal Aorta: Abdominal portion non-dilated. Soft tissues: Unremarkable. PELVIS: Bladder: Stable wall thickening. No calculi.No gross evidence of focal mass. Bowel: Large diverticulum the 2nd portion of the duodenum, unchanged.. No obstruction. No bowel wa ll thickening. Appendix normal. Peritoneal cavity: No ascites, collection or mesenteric inflammatory response. Bones: Scoliosis and degenerative changes. Reproductive organs: Status post hysterectomy. Lymph nodes: Unremarkable. Impression: Stable wall thickening of the urinary bladder. No acute abnormality identified. RADIATION DOSE DELIVERED: 503.25mGy.cm Total DLP DATA REPOSITORY: All CT scans at this facility are submitted to the National Radiology Data Registry (NRDR) Dose Index Registry (DIR) with the [employer] ([employer]). RADIATION OPTIMIZATION: All CT scans at this facility use at least one of these dose optimization te chniques: automated exposure control; mA and/or kV adjustment per patient size (includes targeted exa ms where dose is matched to clinical indication); or iterative reconstruction.
[2022-09-14 09:47] LABS: Abs Immature Grans 0.04 10^3/uL (0.0-0.06); Absolute Basophil Count 0.04 10^3/uL (0.0-0.2); Absolute Eosinophil Count 0.04 10^3/uL (0.0-0.7); Absolute Lymphocyte Count 2.44 10^3/uL (1.2-3.4); Absolute Monocyte Count 0.63 10^3/uL (0.1-0.8); Absolute Neutrophil Count 5.65 10^3/uL (1.2-6.7); Basophils % 0.5; Eosinophils % 0.5; HCT 40.5 % (36.0-46.0); HGB 13.3 g/dL (11.2-15.7); Immature Grans % 0.5; Lymphocytes % 27.6; MCHC 32.8 % (32.0-36.0); MCV 94 fL (80-95); MPV 9.7 fL (8.0-11.0); Monocytes % 7.1; Neutrophils % 63.8; Platelet Count 320 10^3/uL (130-400); RBC 4.29 10^6/uL (3.93-5.22); RDW 13.2 % (11.7-14.6); RDW-SD 45.4 fL; WBC 8.84 10^3/uL (4.4-10.8)
[2022-09-14 10:00] LABS: ALT 24 U/L (14-59); AST 14 U/L (15-37); Albumin 3.6 g/dL (3.4-5.0); Alkaline Phosphatase 81 U/L (46-116); Anion Gap 11.2 mmol/L (3-11); BUN 20 mg/dL (7-18); Bilirubin, Total 0.7 mg/dL (0.2-1.0); CO2 28.8 mmol/L (21.0-32.0); CREATININE 0.8 mg/dL (0.55-1.02); Calcium 9.4 mg/dL (8.5-10.1); Chloride 97 mmol/L (98-107); Estimated GFR 71.27 (mL/min/1.73m2); Glucose 127 mg/dL (74-106); Lipase 23 U/L (16-77); Magnesium 1.9 mg/dL (1.8-2.4); Sodium 137 mmol/L (136-145); Total Protein 8.2 g/dL (6.4-8.2)
[2022-09-14] MEDS: Normal Saline 1,000 ML 200 ML IV (10:05)
[2022-09-14] MEDS: Ondansetron 4 MG/2 ML VIAL IVP (10:05)
[2022-09-14] MEDS: Normal Saline - Diluent 50 ML VIAL IJ (10:31)
[2022-09-14] MEDS: Omnipaque 350 MG/ML 100 ML BTL IJ (10:32)
[2022-09-14 11:19] LABS: Bilirubin Negative (Negative); Blood Moderate (Negative); Clarity Turbid (Clear); Glucose Negative (Negative); Ketones Negative (Negative); Leukocyte Esterase Large (Negative); Nitrite Negative (Negative); Specific Gravity 1.015 (1.005-1.025); Urobilinogen 0.2 mg/dL (Up to 0.2)
[2022-09-14 11:30] LABS: C & S Indicated? Yes; WBC >50 HPF (0-5)
[2022-09-14 11:45] VITALS: BP 120/82; PULSE 75; RESP 20; TEMP 36.8; O2SAT 98
[2022-09-14] MEDS: Fosfomycin Tromethamine 3 GM PACKET PO (11:57)
== END 2022-09-14 12:16 | disposition home or self-care (01) ==
PROVIDERS: Emergency Provider Registered Nurse Emergency; PCP Family Medicine
DX: N39.0 Urinary tract infection, site not specified (principal); E11.9 Type 2 diabetes mellitus without complications; I10 Essential (primary) hypertension
CPT/HCPCS: 36415; 36416; 80053; 82962; 83690; 96361; 96374; 99285; 74177; 81003; 81015; 83735; 85025; 87086; 99284; J2405; J3490

== ENCOUNTER 2022-09-17 17:01 | Emergency (ER) | payer OTHER, SELFPAY ==
[2022-09-17] VITALS (26 sets, daily range): BP systolic 150–176; BP diastolic 60–87; PULSE 66–78; RESP 12–24; TEMP 36.9; O2SAT 94–97
--- NOTE | 2022-09-17 17:00 | RT.EKG_ITS ---
APPROVED REPORT Exam: Resting ECG Reason for Exam: Weakness Patient Location: E HR:68 bpm ECG Measurements Heart Rate 68 AXIS SD 140 P 56 QRSd 84 QRS -6 QT 392 T 9 QTc 417 Conclusion Sinus rhythm...normal P axis, V-rate 60- 99 sinus rhythm, normal axis, normal intervals, non ischemic
[2022-09-17] MEDS: Ondansetron 4 MG/2 ML VIAL IVP (17:35)
[2022-09-17] MEDS: Lactated Ringers 1,000 ML 500 ML IV (17:35)
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
[2022-09-17 17:44] LABS: Abs Immature Grans 0.05 10^3/uL (0.0-0.06); Absolute Basophil Count 0.04 10^3/uL (0.0-0.2); Absolute Lymphocyte Count 2.54 10^3/uL (1.2-3.4); Basophils % 0.4; Eosinophils % 0.9; HCT 38.8 % (36.0-46.0); HGB 13.2 g/dL (11.2-15.7); Immature Grans % 0.4; Lymphocytes % 22.7; MCH 31.6 pg (27.0-33.0); MCV 93 fL (80-95); MPV 9.9 fL (8.0-11.0); Monocytes % 8.9; Neutrophils % 66.7; Platelet Count 338 10^3/uL (130-400); RBC 4.18 10^6/uL (3.93-5.22); RDW 12.9 % (11.7-14.6); RDW-SD 44.5 fL; WBC 11.18 10^3/uL (4.4-10.8)
[2022-09-17 17:45] LABS: Absolute Neutrophil Count 7.46 10^3/uL (1.2-6.7)
[2022-09-17 18:08] LABS: ALT 22 U/L (14-59); AST 12 U/L (15-37); Albumin 3.5 g/dL (3.4-5.0); Alkaline Phosphatase 82 U/L (46-116); Anion Gap 10.8 mmol/L (3-11); BUN 17 mg/dL (7-18); Bilirubin, Total 0.7 mg/dL (0.2-1.0); CO2 27.2 mmol/L (21.0-32.0); CREATININE 0.8 mg/dL (0.55-1.02); Calcium 9.2 mg/dL (8.5-10.1); Chloride 96 mmol/L (98-107); Estimated GFR 71.27 (mL/min/1.73m2); Glucose 109 mg/dL (74-106); Potassium 3.8 mmol/L (3.5-5.1); Sodium 134 mmol/L (136-145); TSH (W/Ref FT4) 0.67 uIU/mL (0.36-3.74); Total Protein 7.8 g/dL (6.4-8.2); Troponin I < 50 ng/L (<or=60)
[2022-09-17] MEDS: busPIRone 5 MG TAB 10 MG PO (18:15)
[2022-09-17 18:17] LABS: Bilirubin Negative (Negative); Blood Small (Negative); Clarity Cloudy (Clear); Glucose Negative (Negative); Ketones Negative (Negative); Leukocyte Esterase Moderate (Negative); Nitrite Negative (Negative); Specific Gravity 1.015 (1.005-1.025); pH 6.5 (5-8)
[2022-09-17 18:20] LABS: D-Dimer 457 ng/mlFEU (<500)
[2022-09-17 18:28] LABS: Bacteria Few HPF (Negative); C & S Indicated? No/Sq. Contamination; Crystals Negative HPF (Negative); Epithelial Cells Many HPF (Negative); Mucus Negative (Negative); WBC 20-50 HPF (0-5)
[2022-09-17] MEDS: Ondansetron O.D.T. 4 MG TABEF, 3 TABS/BTL 12 MG (20:17)
--- NOTE | 2022-09-17 23:04 | NUR.NOTE ---
Referral to Care Management to call patient's daughter to discuss recourses for patient who is serbian speaking and hard of hearing and failing at home. Patient has multiple emergency dept visits. Dana Sri says if care management has any questions she can be called directly. See care management paper referral for number.Nursing Note:
--- NOTE | 2022-09-19 16:12 | CMPROGNOTE_ITS ---
Date of service: 09/18/22 Time of Service: 14:00 Care Management Progress Note Progress Note Text Progress Note Text: CM asked by ED provider to assist with the initiation of home health services. CARINA discussed with SPENCER Harris who completed a [id number] and ordered new HH services for nursing, PT, OT and [employer]. CM contacted the family and spoke to daughter Ella and patient and . All agreed that Vanessa has declined since home health PT services ended in early August. They all felt she would benefit from additional supports.CM faxed referral to [facility] and called the science education professor home health nurse to notify her of the new admission.
== END 2022-09-17 20:29 | disposition home or self-care (01) ==
PROVIDERS: Emergency Provider Physician Assistant; PCP Family Medicine
DX: R53.1 Weakness (principal); F03.90 Unspecified dementia, unspecified severity, without behavioral disturbance, psychotic disturbance, mood disturbance, and anxiety; R26.2 Difficulty in walking, not elsewhere classified; R11.0 Nausea; Z87.440 Personal history of urinary (tract) infections; E11.9 Type 2 diabetes mellitus without complications; Z79.4 Long term (current) use of insulin
CPT/HCPCS: 80053; 82962; 93005; 96361; 96374; 99284; 81003; 81015; 83735; 84443; 84484; 85025; 85379; 93010; J2405

== ENCOUNTER 2022-10-30 15:35 | Outpatient (REF) | payer OTHER, SELFPAY | END 2022-10-30 15:36 | disposition home or self-care (01) | LOC: NCHCN 15:35 | PROVIDERS: PCP Family Medicine; Visit Provider Physician Assistant | DX: N39.0 Urinary tract infection, site not specified (principal) | CPT/HCPCS: 87086 ==

== ENCOUNTER 2022-11-20 15:59 | Emergency (ER) | payer OTHER, SELFPAY ==
[2022-11-20 16:03] VITALS: BP 115/67; PULSE 84; RESP 22; TEMP 37.1; O2SAT 97
[2022-11-20 17:18] LABS: Bilirubin Negative (Negative); Blood Large (Negative); Clarity Turbid (Clear); Glucose 100 mg/dL (Negative); Ketones Trace mg/dL (Negative); Leukocyte Esterase Moderate (Negative); Nitrite Negative (Negative); Specific Gravity 1.025 (1.005-1.025); Urobilinogen 0.2 mg/dL (Up to 0.2); pH 5.5 (5-8)
[2022-11-20 17:30] LABS: C & S Indicated? Yes; RBC >50 HPF (0-2); WBC >50 HPF (0-5)
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
--- NOTE | 2022-11-20 18:28 | NUR.NOTE ---
Nursing Note: referral to pcp for uti
[2022-11-20] MEDS: Fosfomycin Tromethamine 3 GM PACKET PO (18:29)
--- NOTE | 2022-11-22 12:04 | NUR.NOTE ---
Nursing Note: Accessed pt chart for antibiotic on discharge.
== END 2022-11-20 18:53 | disposition home or self-care (01) ==
PROVIDERS: Emergency Provider Nurse Practitioner Family; PCP Family Medicine
DX: N39.0 Urinary tract infection, site not specified (principal); F03.90 Unspecified dementia, unspecified severity, without behavioral disturbance, psychotic disturbance, mood disturbance, and anxiety; E11.9 Type 2 diabetes mellitus without complications; I10 Essential (primary) hypertension; E78.5 Hyperlipidemia, unspecified; Z79.4 Long term (current) use of insulin; Z79.899 Other long term (current) drug therapy
CPT/HCPCS: 99283; 81003; 81015; 87086; J3490

== ENCOUNTER → 2022-12-15 09:21 | Outpatient (BNVA) | payer OTHER, SELFPAY | PROVIDERS: PCP Family Medicine; Referring Provider Family Medicine; Visit Provider Nurse Practitioner Gerontology | DX: R30.0 Dysuria (principal); N36.2 Urethral caruncle; Z87.440 Personal history of urinary (tract) infections; E11.9 Type 2 diabetes mellitus without complications | CPT/HCPCS: 99214 ==

== ENCOUNTER 2022-12-16 08:03 | Day surgery (SDC) | payer OTHER, SELFPAY ==
[2022-12-16 09:03] VITALS: BP 135/66; PULSE 95; RESP 16; TEMP 37.1; O2SAT 98
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
[2022-12-16 09:30] VITALS: BMI 18.3
[2022-12-16] MEDS: Lactated Ringers 1,000 ML 80 ML IV (09:37)
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
--- NOTE | 2022-12-16 10:32 | URETHRABX_PTH ---
PATIENT: Vanessa Lemus LOC: [facility] U#:[id number] AGE/SX: 87/F ROOM: RE12/16/[address]: Gilbert Brito MD : [id number] BED: DIS: 12/16/2022 SPEC #: [id number] RECD: 12/16/22 13:17 STATUS: VANESSA REPadmini #: [id number] MURALI: 12/16/22 10:[address]: Gilbert Brito DEPT: Surgical Specimen RECD BY: Marisabel Amanda ENTERED: 12/16/22 13:19 SP TYPE: URETHRABX OTHR DR: An Valente MD, DC Tissues: 1 - URETHRA BIOPSY Procedures: GROSS AND MICRO LEVEL 4 Comments: [id number]
--- NOTE | 2022-12-16 10:45 | W.PM.DSUDISC ---
Date of service: 12/16/22 Time of Service: 10:45 Discharge Plan Disposition Patient Disposition: Home Condition: Stable Discharge Details Reason For Visit: excision urethral caruncle Attending Provider: Gilbert Brito Primary Care Provider: An Valente Home Meds and New Rx's Prescriptions: No Action (DME) blood-glucose meter [OneTouch Ultra2 Meter] Kit See Rx Instructions .ROUTE .MEDSUPPLY Qty: 1 0RF Rx Instructions: Use daily to check blood sugar Shingrix (PF) 50 mcg/0.5 mL suspension for reconstitution 0.5 ml IM ONCE Qty: 1 1RF Rx Instructions: as a single dose. Repeat in 2 months tramadol 50 mg tablet 50 - 100 mg PO Q6H PRN (Reason: pain) Qty: 240 4RF meclizine 12.5 mg tablet 12.5 mg PO DAILY PRN (Reason: dizziness) Qty: 90 0RF Levemir FlexTouch U100 Insulin 100 unit/mL (3 mL) insulin pen 18 unit SC DAILY Qty: 15 7RF Adult 50 Plus Probiotic 4 billion cell capsule 4,000 mmu cells PO DAILY Qty: 90 0RF Rx Instructions: administer with a meal triamcinolone acetonide 0.1 % cream 1 applic TOPICAL BID Qty: 80 4RF Mell Protect (zinc oxide) 12 % cream 1 applic topical BID-QID PRN (Reason: skin irritation) Qty: 142 4RF estradiol 0.01 % (0.1 mg/gram) cream 2 g vaginal DAILY Qty: 42.5 5RF Rx Instructions: Must use daily due to severe vaginal atrophy Lumigan 5 ML drops 1 drp OU HS timolol maleate 15 ML drops 0.5 ml Ophthalmic DAILY Qty: 1 (DME) Depend Underwear For Women S-M 1 EACH misc 1 ea Miscellaneous TID Qty: 90 Rx Instructions: incontinence R32 cholecalciferol (vitamin D3) 1,000 unit capsule 2,000 unit PO DAILY triamcinolone acetonide [24 Hour Nasal Allergy] 55 mcg aerosol,spray 2 spray intranasal DAILY Qty: 16.9 4RF Rx Instructions: administer into each nostril (DME) blood sugar diagnostic Strip See Rx Instructions .ROUTE .MEDSUPPLY Qty: 400 4RF Rx Instructions: test 4 x/day - Verio strip E11.9 (DME) lancets [OneTouch Delica Lancets] 33 gauge misc See Rx Instructions .ROUTE DAILY Qty: 300 4RF Rx Instructions: 3 times daily. E11.9 (DME) pen needle, diabetic [BD Ultra-Fine Mini Pen Needle] 31 gauge x 3/16 needle See Dose Instructions .ROUTE .MEDSUPPLY Qty: 90 4RF Dose Instruction: As directed Rx Instructions: Daily E11.9 diclofenac sodium 1 % gel 2 g TP QID Qty: 100 5RF Rx Instructions: apply to painful areas Myrbetriq 25 mg tablet extended release 24 hr 25 mg PO DAILY Qty: 90 4RF acetaminophen [Tylenol Extra Strength] 500 mg tablet 1,000 mg PO TID PRN (Reason: pain) Qty: 180 4RF sucralfate 1 gram tablet 1 g PO QAC Qty: 90 5RF ondansetron 4 mg tablet,disintegrating 4 mg PO Q6H PRN (Reason: nausea and vomiting) Qty: 30 6RF psyllium husk [Fiber (psyllium husk)] 0.4 gram Capsule 0.4 g PO DAILY donepezil [Aricept] 10 mg tablet 10 mg PO QHS pantoprazole [Protonix] 40 mg tablet,delayed release (DR/EC) 40 mg PO QPM pregabalin [Lyrica] 50 mg capsule 50 mg PO BID lidocaine 5 % adhesive patch,medicated 1 patch topical DAILY Qty: 15 0RF Rx Instructions: leave on most painful area for up to 12 hrs Discharge Instructions Additional Instructions: followup 3 to 4 weeks for path and wound check continue to use estrace vaginal cream until followup appt Activity:: Activity as Tolerated Shower/Bathe:: 24 hours Diet:: As Tolerated Discharge Orders Discharge Orders: Discharge Order (Routine); Ordered 12/16/22 Ordered By: Gilbert Brito DS: Diagnosis Discharge Diagnosis (1) Urethral caruncle: Status: Acute
[2022-12-16 10:48] VITALS: BP 102/49; PULSE 80; RESP 15; TEMP 36.3; O2SAT 95
--- NOTE | 2022-12-16 10:49 | ROE_ITS ---
Date of service: 12/16/22 Time of Service: 10:50 Operative Note Operative Note DATE OF PROCEDURE: 12/16/22 PRE-OP DIAGNOSIS: Urethral caruncle POST-OP DIAGNOSIS: same PROCEDURE: excision of urethral caruncle SURGEON: Gilbert Brito ANESTHESIA TYPE: Local By Surgeon and General:No Airway Refer to Anesthesia Record ESTIMATED BLOOD LOSS: 10 PATHOLOGY: other (urethral caruncle) COMPLICATIONS: None Patient was transported to: same day Patient's condition: stable Implants: none Indications: This is an 87-year-old woman who has a history of emphysematous pyelonephritis. She was treated with stent placement and antibiotics. She has had recurrent bacteriuria as well as pelvic discomfort. On examination, she has evidence of a urethral caruncle that is somewhat tender on palpation. Her discomfort improves with topical steroid cream, but the symptoms never completely resolve. She presents for caruncle excision. Findings: Urethral caruncle Procedure Description: The patient was given antibiotics and brought to the operating room on 12/16/2022. After successful induction of general anesthesia, she was placed in the dorsal lithotomy position. Her genitalia was prepped and draped. 2% Xylocaine jelly was instilled into the urethra to act as a local anesthetic. A 16 Setswana Manuel was passed through the urethra into the bladder. The catheter balloon was inflated with 10 cc of sterile water. A perilesional block was performed using half percent Marcaine with epinephrine. The visible mass was then excised sharply and sent to pathology for permanent section. The edges of the vaginal mucosa were then reapproximated using simple interrupted 3-0 chromic sutures. The wound was inspected for hemostasis. No active bleeding was seen, so we removed the Manuel catheter after deflating the catheter balloon. The patient tolerated this procedure well with no complications.
[2022-12-16] MEDS: Phenazopyridine 200 MG TAB PO (11:06)
[2022-12-16 11:30] VITALS: BP 106/63; PULSE 78; RESP 16; TEMP 36.3; O2SAT 96
--- NOTE | 2022-12-16 11:35 | W.ANESPOSTOP ---
Postoperative Evaluation Date, Time and Location Date Performed: 12/16/22 Time Performed: 10:50 Patient Location: Day Surgery Unit Vital Signs Most Recent Imported Vital Signs: Most Recent Vital Signs Temp Pulse Resp BP Pulse Ox 36.3 C L 80 15 102/49 L 95 12/16/22 10:48 12/16/22 10:48 12/16/22 10:48 12/16/22 10:48 12/16/22 10:48 Pain Score Most Recent Pain Score: Most Recent Pain Score Pain Level 0 12/16/22 10:48 Assessment Mental Status: Awake (Alert & Oriented to Patient Baseline) Airway and Respiratory Function: Patent airway with normal (patient baseline) respiratory exam Cardiovascular Function: Hemodynamically Stable Hydration Status: Adequately Hydrated Nausea & Vomiting: No Nausea or Vomiting Pain: Pt. Denies Any Pain Peripheral Nerve Block: Patient did not receive a nerve block
== END 2022-12-16 12:00 | disposition home or self-care (01) ==
PROVIDERS: PCP Family Medicine; Visit Provider Urology
PROC: (CPT 53265; principal; 2022-12-16 09:45)
DX: N36.2 Urethral caruncle (principal)
CPT/HCPCS: 53265; 88305; J2001; J2704

== ENCOUNTER → 2022-12-23 12:42 | Outpatient (BNVA) | payer OTHER, SELFPAY | PROVIDERS: PCP Family Medicine; Referring Provider Family Medicine; Visit Provider Urology | DX: Z48.816 Encounter for surgical aftercare following surgery on the genitourinary system (principal); R32 Unspecified urinary incontinence; N36.2 Urethral caruncle | CPT/HCPCS: 81003 ==

== ENCOUNTER 2022-12-23 13:37 | Outpatient (REF) | payer OTHER, SELFPAY | END 2022-12-23 13:38 | disposition home or self-care (01) | LOC: LBN 13:37 | PROVIDERS: PCP Family Medicine; Visit Provider Urology | DX: N39.0 Urinary tract infection, site not specified (principal) | CPT/HCPCS: 87086 ==

== ENCOUNTER 2023-01-05 04:24 | Outpatient (CLI) | payer OTHER, SELFPAY ==
[2023-01-05 14:44] LABS: Abs Immature Grans 0.04 10^3/uL (0.0-0.06); Absolute Basophil Count 0.05 10^3/uL (0.0-0.2); Absolute Eosinophil Count 0.17 10^3/uL (0.0-0.7); Absolute Lymphocyte Count 2.94 10^3/uL (1.2-3.4); Absolute Monocyte Count 1.12 10^3/uL (0.1-0.8); Basophils % 0.5; Eosinophils % 1.6; HCT 35.5 % (36.0-46.0); HGB 11.5 g/dL (11.2-15.7); Immature Grans % 0.4; Lymphocytes % 27.1; MCHC 32.4 % (32.0-36.0); MCV 99 fL (80-95); Monocytes % 10.3; Neutrophils % 60.1; Platelet Count 331 10^3/uL (130-400); RBC 3.59 10^6/uL (3.93-5.22); RDW 13.3 % (11.7-14.6); RDW-SD 47.8 fL; WBC 10.85 10^3/uL (4.4-10.8)
[2023-01-05 14:46] LABS: Absolute Neutrophil Count 6.52 10^3/uL (1.2-6.7)
[2023-01-05 16:26] LABS: ALT 14 U/L (14-59); AST 11 U/L (15-37); Albumin 3.2 g/dL (3.4-5.0); Alkaline Phosphatase 89 U/L (46-116); Anion Gap 8.4 mmol/L (3-11); BUN 24 mg/dL (7-18); Bilirubin, Total 0.2 mg/dL (0.2-1.0); CO2 26.6 mmol/L (21.0-32.0); CREATININE 0.8 mg/dL (0.55-1.02); Calcium 9.4 mg/dL (8.5-10.1); Chloride 104 mmol/L (98-107); Estimated GFR 71.27 (mL/min/1.73m2); Glucose 278 mg/dL (74-106); Sodium 139 mmol/L (136-145); Total Protein 7.2 g/dL (6.4-8.2)
== END 2023-01-05 04:25 | disposition home or self-care (01) ==
LOC: LBO 04:26
PROVIDERS: PCP Family Medicine; Visit Provider Physician Assistant
DX: R53.1 Weakness (principal); N36.2 Urethral caruncle
CPT/HCPCS: 36415; 80053; 85025

== ENCOUNTER → 2023-01-13 13:17 | Outpatient (BNVA) | payer OTHER, SELFPAY | PROVIDERS: PCP Family Medicine; Referring Provider Family Medicine; Visit Provider Urology | DX: N36.2 Urethral caruncle (principal); R32 Unspecified urinary incontinence | CPT/HCPCS: 99213 ==

== ENCOUNTER 2023-01-21 14:02 | Outpatient (REF) | payer OTHER, SELFPAY | END 2023-01-21 14:03 | disposition home or self-care (01) | LOC: LBN 14:02 | PROVIDERS: PCP Family Medicine; Visit Provider Nurse Practitioner Family | DX: N76.0 Acute vaginitis (principal) | CPT/HCPCS: 87480; 87510; 87660 ==

== ENCOUNTER → 2023-03-01 13:45 | Outpatient (BNVA) | payer OTHER, SELFPAY | PROVIDERS: PCP Family Medicine; Referring Provider Family Medicine; Visit Provider Urology | DX: R32 Unspecified urinary incontinence (principal) ==

== ENCOUNTER 2023-08-14 07:27 | Observation (INO) | payer OTHER, SELFPAY ==
[2023-08-14] VITALS (12 sets, daily range): BP systolic 130–210; BP diastolic 58–166; PULSE 54–89; RESP 12–20; TEMP 35.7–36.7; O2SAT 88–99
[2023-08-14 07:43] LABS: Abs Immature Grans 0.05 10^3/uL (0.0-0.06); Absolute Basophil Count 0.06 10^3/uL (0.0-0.2); Absolute Eosinophil Count 0.04 10^3/uL (0.0-0.7); Absolute Lymphocyte Count 2.13 10^3/uL (1.2-3.4); Absolute Monocyte Count 0.55 10^3/uL (0.1-0.8); Absolute Neutrophil Count 10.99 10^3/uL (1.2-6.7); Basophils % 0.4 %; Eosinophils % 0.3 %; HCT 40.7 % (36.0-46.0); HGB 13.2 g/dL (11.2-15.7); Immature Grans % 0.4 %; Lymphocytes % 15.4 %; MCH 31.3 pg (27.0-33.0); MCHC 32.4 % (32.0-36.0); MCV 96 fL (80-95); MPV 9.4 fL (8.0-11.0); Neutrophils % 79.5 %; Platelet Count 290 10^3/uL (130-400); RBC 4.22 10^6/uL (3.93-5.22); RDW 12.7 % (11.7-14.6); RDW-SD 45.1 fL; WBC 13.83 10^3/uL (4.4-10.8)
[2023-08-14] MEDS: Ondansetron 4 MG/2 ML VIAL IVP (07:47)
[2023-08-14] MEDS: Lactated Ringers 1,000 ML 125 ML IV ×2 (07:47→16:36)
--- NOTE | 2023-08-14 08:00 | RT.EKG_ITS ---
APPROVED REPORT Exam: Resting ECG Reason for Exam: dizzy Patient Location: E HR:75 bpm ECG Measurements Heart Rate 75 AXIS NM 153 P 11 QRSd 92 QRS -11 QT 412 T 6 QTc 461 Conclusion Sinus rhythm...normal P axis, V-rate 60- 99
[2023-08-14 08:01] LABS: ALT 16 U/L (14-59); AST 13 U/L (15-37); Albumin 3.7 g/dL (3.4-5.0); Alkaline Phosphatase 80 U/L (46-116); Anion Gap 12.6 mmol/L (3-11); BUN 18 mg/dL (7-18); Bilirubin, Total 0.4 mg/dL (0.2-1.0); CO2 25.4 mmol/L (21.0-32.0); CREATININE 0.8 mg/dL (0.55-1.02); Calcium 9.1 mg/dL (8.5-10.1); Chloride 101 mmol/L (98-107); Estimated GFR 70.83 (mL/min/1.73m2); Glucose 125 mg/dL (74-106); Lipase 15 U/L (16-77); Magnesium 1.6 mg/dL (1.8-2.4); Potassium 3.5 mmol/L (3.5-5.1); Sodium 139 mmol/L (136-145); Total Protein 8.1 g/dL (6.4-8.2); Troponin I < 50 ng/L (< or =60)
--- NOTE | 2023-08-14 08:15 | DI.CT_ITS ---
Exam(s) CT ABDOMEN PELVIS W EXAM: CT ABDOMEN PELVIS W CLINICAL HISTORY: nausea, abd pain, ttp rlq. TECHNIQUE: Imaging Protocol: Axial computed tomography images with coronal and sagittal reformatted images were created and reviewed CONTRAST MATERIAL: Intravenous: Omnipaque 350 Contrast volume:70 ml Oral: no COMPARISON: CT CT ABDOMEN PELVIS W from 09/14/2022 FINDINGS: ABDOMEN and PELVIS: Lung Bases: No acute findings. Small hiatal hernia. Liver: Normal density. No suspicious mass. Gallbladder and biliary tract: Status post cholecystectomy. No radiodense calculus. Stable mild int ra and extrahepatic biliary dilation. Pancreas: Normal density. No abnormal calcifications or inflammatory process. No evidence of mass. Spleen: Normal. Kidneys: Normal size, contour and axis. Mild dilatation of the collecting system may be due to over distended bladder. No radiodense stones. No obstructive uropathy. No suspicious masses seen. Adrenal glands: No masses seen. Vasculature: Abdominal aorta non-dilated. Soft tissues: Unremarkable. Bladder: Somewhat over distended. Stable left-sided wall thickening. No calculi.No focal mass. Bowel: Large quantity of stool distending rectum there is a question of diffuse mild wall thickening involving the transverse and descending colon although there is little stool in this area. No obstru ction. No bowel wall thickening. Appendix normal. Peritoneal cavity: No ascites. No focal collection. No mesenteric inflammatory response. Bones: Degenerative changes and scoliosis. Reproductive organs: Status post hysterectomy. Lymph nodes: No pathologically enlarged lymph nodes. IMPRESSION:: Large quantity of stool distending the rectum. Question of wall thickening of the transverse descending colon could indicate colitis versus nondiste ntion. Stable appearance of left-sided bladder wall thickening. The bladder is over distended, causing mild bilateral collecting system dilatation. RADIATION DOSE DELIVERED: Total DLP DATA REPOSITORY: All CT scans at this facility are submitted to the National Radiology Data Registry (NRDR) Dose Index Registry (DIR) with the [employer] ([employer]). RADIATION OPTIMIZATION: All CT scans at this facility use at least one of these dose optimization te chniques: automated exposure control; mA and/or kV adjustment per patient size (includes targeted exa ms where dose is matched to clinical indication); or iterative reconstruction.
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
[2023-08-14] MEDS: Normal Saline Flush 10 ML SYR IVP ×2 (08:35→10:59)
[2023-08-14] MEDS: Normal Saline - Diluent 50 ML VIAL IJ (08:36)
[2023-08-14] MEDS: Omnipaque 350 MG/ML 100 ML BTL 70 ML IJ (08:37)
[2023-08-14 08:49] LABS: TSH (W/Ref FT4) 1.21 uIU/mL (0.36-3.74)
--- NOTE | 2023-08-14 09:12 | DI.VRAD_ITS ---
PROCEDURE INFORMATION: Exam: CT Abdomen And Pelvis With Contrast Exam date and time: 08/14/2023 8:43 AM Age: 88 years old Clinical indication: Other: Nausea, abd pain, ttp rlq; Prior surgery; Surgery date: 6+ months; Surgery type: Cholecysectomy. Hysterectomy TECHNIQUE: Imaging protocol: Computed tomography of the abdomen and pelvis with contrast. Contrast material: OMNIPAQUE 350; Contrast volume: 70 ml; Contrast route: INTRAVENOUS (IV); COMPARISON: CT ABDOMEN PELVIS W 14/09/2022 10:35 FINDINGS: Lungs: Visualized lung bases are clear. Diaphragm: Small hiatal hernia. Liver: Normal. No mass or intrahepatic biliary ductal dilatation. Gallbladder and bile ducts: Gallbladder is absent. Common bile duct is dilated post cholecystectomy but appears similar to previous exam. Mild dilatation of intrahepatic bile ducts. Pancreas: Normal. No mass or ductal dilation. Spleen: Normal. No splenomegaly. Adrenal glands: Normal. No mass. Kidneys and ureters: Normal. No hydronephrosis, calculus, cyst or mass. Mild fullness of the renal pelvis is probably due to bladder distension. Stomach and bowel: Stomach and small bowel appear within normal limits. There is a relatively large amount gas and fecal material in the colon and transverse and descending colon show wall thickening. There is a 5.5 cm rectal fecal impaction. Appendix: No evidence of appendicitis. Intraperitoneal space: Unremarkable. No free air. No significant fluid collection. Vasculature: Moderate aortic atherosclerosis. Lymph nodes: There are calcified lymph nodes surrounding the head of the pancreas. Urinary bladder: The bladder is moderately distended. There is some wall thickening posterolaterally on the left. No discrete mass. Reproductive: Uterus is absent. No adnexal cyst or mass. Bones/joints: Lumbar levoscoliosis and spondylosis. Soft tissues: Unremarkable. IMPRESSION: Colonic wall thickening may reflect colitis. Other incidental findings as above.. Dictated and Authenticated by: Michael Monroe MD. Ordering:MARY Lawrence MD
[2023-08-14 09:46] LABS: Bilirubin Negative (Negative); Blood Large (Negative); Clarity Cloudy (Clear); Glucose Negative (Negative); Ketones 15 mg/dL (Negative); Leukocyte Esterase Moderate (Negative); Nitrite Negative (Negative); Specific Gravity 1.015 (1.005-1.025); Urobilinogen 0.2 mg/dL (Up to 0.2)
[2023-08-14 09:53] LABS: C & S Indicated? Yes; WBC >50 HPF (0-5)
[2023-08-14] MEDS: levoFLOXacin 750 MG/150 ML BAG 100 MG IVPB (10:36)
[2023-08-14 11:01] LABS: Lactate 0.9 mmol/L (0.6-1.4)
[2023-08-14] MEDS: Metoclopramide 10 MG/2 ML VIAL IVP (11:53)
[2023-08-14] MEDS: MAGNESIUM SULFATE 1 GM/100 ML BAG IVINF (12:50)
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
[2023-08-14] MEDS: Enoxaparin 30 MG/0.3 ML SYR SC (17:39)
--- NOTE | 2023-08-14 20:17 | NUR.NOTE ---
Addendum entered by Aurora Faustin LPN 08/14/23 20:22: Pt also has a purewick in place and a patch to her right shoulder. Original Note: Nursing Note: Pt arrived to 227 from ICU. Patient is alert to person and place, has dementia at baseline. Patient denies any complaints, lung sounds clear/diminished. Patient has LR @125 running. Patient is tucked into bed with TV on and water at bedside. Patient appears to be resting comfortably.
[2023-08-14] MEDS: Pregabalin 50 MG CAP PO (20:30)
[2023-08-14] MEDS: Donepezil 5 MG TAB 10 MG PO (20:30)
[2023-08-14] MEDS: Pantoprazole 40 MG TABCR PO (20:30)
[2023-08-14] MEDS: traZODone 50 MG TAB 25 MG PO (20:31)
[2023-08-14] MEDS: Diclofenac 1% Gel 100 GM TUBE TP (20:31)
[2023-08-14] MEDS: Bimatoprost 0.01% 2.5 ML BTL OU (20:31)
[2023-08-14] MEDS: Ondansetron O.D.T. 4 MG TABEF PO (22:32)
[2023-08-15] MEDS: Lactated Ringers 1,000 ML 125 ML IV (01:16)
[2023-08-15] MEDS: Acetaminophen 500 MG TAB 1000 MG PO (06:04)
[2023-08-15 07:20] LABS: Abs Immature Grans 0.06 10^3/uL (0.0-0.06); Absolute Basophil Count 0.02 10^3/uL (0.0-0.2); Absolute Monocyte Count 1.05 10^3/uL (0.1-0.8); Basophils % 0.2 %; HCT 33.7 % (36.0-46.0); Immature Grans % 0.5 %; Lymphocytes % 19.1 %; MCH 31.4 pg (27.0-33.0); MCHC 32.6 % (32.0-36.0); MCV 96 fL (80-95); MPV 9.8 fL (8.0-11.0); Monocytes % 9.2 %; Platelet Count 279 10^3/uL (130-400); RDW 12.9 % (11.7-14.6); RDW-SD 45.7 fL; WBC 11.44 10^3/uL (4.4-10.8)
[2023-08-15 07:24] LABS: Absolute Lymphocyte Count 2.19 10^3/uL (1.2-3.4); Absolute Neutrophil Count 8.12 10^3/uL (1.2-6.7)
[2023-08-15 07:39] LABS: BUN 12 mg/dL (7-18); CREATININE 0.7 mg/dL (0.55-1.02); Calcium 8.6 mg/dL (8.5-10.1); Chloride 103 mmol/L (98-107); Estimated GFR 83.13 (mL/min/1.73m2); Glucose 79 mg/dL (74-106); Magnesium 1.7 mg/dL (1.8-2.4); Potassium 3.6 mmol/L (3.5-5.1); Sodium 139 mmol/L (136-145)
[2023-08-15 08:08] VITALS: BP 122/72; PULSE 81; RESP 18; TEMP 37.3; O2SAT 97
[2023-08-15] MEDS: Normal Saline Flush 10 ML SYR IVP ×2 (08:19→20:42)
[2023-08-15] MEDS: Insulin Glargine 300 UNITS/3 ML PEN 18 UNITS SC (08:19)
[2023-08-15] MEDS: Mirabegron 25 MG TABCR PO (08:20)
[2023-08-15] MEDS: Diclofenac 1% Gel 100 GM TUBE TP ×3 (08:21→20:40)
[2023-08-15] MEDS: Pregabalin 50 MG CAP PO ×2 (08:21→20:41)
[2023-08-15] MEDS: Cholecalciferol (Vitamin D3) 1,000 UNIT TAB 2000 UNITS PO (08:21)
[2023-08-15] MEDS: Timolol 0.5% 5 ML BTL OP (08:24)
[2023-08-15 12:29] VITALS: BP 164/128; PULSE 73; RESP 18; TEMP 37.1; O2SAT 97
[2023-08-15 15:11] VITALS: BP 101/90; PULSE 78; RESP 18; TEMP 37.2; O2SAT 97
[2023-08-15] MEDS: Fosfomycin Tromethamine 3 GM PACKET PO (15:54)
[2023-08-15] MEDS: Enoxaparin 30 MG/0.3 ML SYR SC (15:54)
--- NOTE | 2023-08-15 16:30 | W.PM.PROGNOT ---
Date of Service Date of service: 08/15/23 Time of Service: 16:30 Assessment and Plan Assessment and plan (1) Nausea & vomiting: Status: Acute Assessment and plan: In setting of UTI and severe constipation status post disimpaction, Now taking some fluids and nausea improved. - ondansatron prn - progress diet as tolerated (2) Acute UTI: Status: Acute Assessment and plan: - Multiple allergies, received levofloxacin IV. Urine culture showing insignificant mixed growth. Will treat with 1 dose of fosfomycin discontinue levofloxacin - recurrent in the past, but none in the past year on record. Resume vaginal estrogen upon discharge. (3) Fecal impaction in rectum: Assessment and plan: May have contributed to UTI. Resume psyllium as well as PEG prn. (4) Hypomagnesemia: Status: Acute Assessment and plan: replaced IV in the ED, follow in am (5) Diabetes mellitus: Status: Chronic Assessment and plan: Recently well controlled as outpatient. continue home insulin glargine and sliding scale. Qualifiers: Diabetes mellitus type: type 2 Diabetes mellitus technician terminal and repeater insulin use: with technician terminal and repeater use Diabetes mellitus complication status: without complication Qualified Code(s): E11.9 - Type 2 diabetes mellitus without complications; Z79.4 - long term care phlebotomist (current) use of insulin (6) Dementia: Status: Chronic Assessment and plan: continue outpatient medication. She appears to have some parkinsonism as well. (7) DVT prophylaxis: Status: Acute Assessment and plan: enoxaparin (8) Discharge planning issues: Status: Acute Assessment and plan: Physical therapy will be consulted for discharge planning currently with compression fracture of his spine, he usually helps provide care for her Case management will be following Anticipated discharge to home plus or minus home services Discussed with Dr. Granados Subjective Subjective Patient reports: no new complaints, feels better, tolerating liquids well, tolerating a regular diet, nausea (Minimal and improved states it is chronic for her) and afebrile; denies diarrhea, vomiting or shortness of breath Exam Narrative Exam Narrative: Elderly female patient appearing younger than stated age in no acute distress head is atraumatic eyes nonicteric noninjected oral mucosas slightly dry neck is supple with no JVD respirations are even and unlabored breath sounds are clear bilaterally cardiovascular regular rate and rhythm no murmurs appreciated abdomen is round soft nontender moves extremities without edema neurologic she is awake alert oriented to person and place evidence of cognitive impairment psychiatric normal mood and affect Objective Last Vital Signs Temp 37.2 C 08/15/23 15:11 Pulse 78 08/15/23 15:11 Resp 18 08/15/23 15:11 BP 101/90 08/15/23 15:11 Pulse Ox 97 08/15/23 15:11 Laboratory Results - last 24 hr 08/15/23 08/15/23 06:30 14:52 WBC 11.44 H RBC 3.50 L Hgb 11.0 L D Hct 33.7 L MCV 96 H MCH 31.4 MCHC 32.6 RDW 12.9 Plt Count 279 MPV 9.8 Immature Gran % 0.5 Neutrophils % 71.0 Lymphocytes % 19.1 Monocytes % 9.2 Eosinophils % 0.0 Basophils % 0.2 Nucleated RBC % 0.0 Absolute Neutrophils 8.12 H Absolute Lymphocytes 2.19 Absolute Monocytes 1.05 H Absolute Eosinophils 0.00 Absolute Basophils 0.02 Sodium 139 Cancelled Potassium 3.6 Cancelled Chloride 103 Cancelled Carbon Dioxide 28.0 Cancelled Anion Gap 8.0 Cancelled BUN 12 Cancelled Creatinine 0.7 Cancelled Est GFR (CKD-EPI 2020) 83.13 Cancelled Glucose 79 Cancelled Calcium 8.6 Cancelled Magnesium 1.7 L Time Spent with Patient Time Spent with Patient: 35-49 minutes Time was spent: preparing to see the patient(eg.review tests), obtaining and/or reviewing separately otained hiistory, ordering medications,tests, procedures, indepentently interpreting results and counseling the patient
[2023-08-15] MEDS: Bimatoprost 0.01% 2.5 ML BTL OU (20:40)
[2023-08-15] MEDS: traZODone 50 MG TAB 25 MG PO (20:40)
[2023-08-15] MEDS: Pantoprazole 40 MG TABCR PO (20:41)
[2023-08-15] MEDS: Donepezil 5 MG TAB 10 MG PO (20:41)
[2023-08-15] MEDS: Docusate Sodium 100 MG CAP PO (20:42)
[2023-08-16 07:25] LABS: Abs Immature Grans 0.02 10^3/uL (0.0-0.06); Absolute Basophil Count 0.03 10^3/uL (0.0-0.2); Absolute Eosinophil Count 0.07 10^3/uL (0.0-0.7); Absolute Lymphocyte Count 2.71 10^3/uL (1.2-3.4); Absolute Neutrophil Count 4.36 10^3/uL (1.2-6.7); Basophils % 0.4 %; Eosinophils % 0.9 %; HCT 36.3 % (36.0-46.0); HGB 11.9 g/dL (11.2-15.7); Immature Grans % 0.2 %; Lymphocytes % 33.5 %; MCH 31.3 pg (27.0-33.0); MCHC 32.8 % (32.0-36.0); MCV 96 fL (80-95); MPV 9.9 fL (8.0-11.0); Monocytes % 11.1 %; Neutrophils % 53.9 %; Platelet Count 286 10^3/uL (130-400); RDW-SD 45.7 fL; WBC 8.09 10^3/uL (4.4-10.8)
[2023-08-16 07:36] LABS: Anion Gap 8.7 mmol/L (3-11); BUN 14 mg/dL (7-18); CO2 29.3 mmol/L (21.0-32.0); CREATININE 0.7 mg/dL (0.55-1.02); Calcium 8.9 mg/dL (8.5-10.1); Chloride 104 mmol/L (98-107); Estimated GFR 83.13 (mL/min/1.73m2); Glucose 85 mg/dL (74-106); Potassium 3.4 mmol/L (3.5-5.1); Sodium 142 mmol/L (136-145)
[2023-08-16 07:38] LABS: Magnesium 1.9 mg/dL (1.8-2.4)
[2023-08-16 08:17] VITALS: BP 159/82; PULSE 87; RESP 17; TEMP 36.9; O2SAT 95
[2023-08-16] MEDS: Pregabalin 50 MG CAP PO ×2 (08:33→21:48)
[2023-08-16] MEDS: Mirabegron 25 MG TABCR PO (08:33)
[2023-08-16] MEDS: Timolol 0.5% 5 ML BTL OP (08:34)
[2023-08-16] MEDS: Diclofenac 1% Gel 100 GM TUBE TP ×3 (08:34→21:43)
[2023-08-16] MEDS: Cholecalciferol (Vitamin D3) 1,000 UNIT TAB 2000 UNITS PO (08:34)
[2023-08-16] MEDS: Insulin Glargine 300 UNITS/3 ML PEN 18 UNITS SC (08:34)
[2023-08-16] MEDS: Docusate Sodium 100 MG CAP PO ×2 (08:34→21:48)
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
--- NOTE | 2023-08-16 11:51 | CHAPLAIN ---
Vanessa is dealing with severe constipation and a UTI. Vanessa and I know each other from several years ago when I worked at [employer]. Vanessa said her will likely be in to visit later today after he has an appointment. Vanessa was up in the chair. She wanted to know if she could her hair washed today. I let her CAR SEAT COVERER know that she's requested that. Vanessa is a member of [employer] and gave me permission to let Fr. Perera know that she is here.
[2023-08-16 15:05] VITALS: BP 137/111; PULSE 88; RESP 18; TEMP 37.1; O2SAT 96
--- NOTE | 2023-08-16 15:49 | W.PM.PROGNOT ---
Date of Service Date of service: 08/16/23 Time of Service: 15:49 Assessment and Plan Assessment and plan (1) Nausea & vomiting: Status: Resolved Assessment and plan: In setting of UTI and severe constipation status post disimpaction, Now taking some fluids and nausea improved. - ondansatron prn - progress diet as tolerated (2) Acute UTI: Status: Resolved Assessment and plan: - Multiple allergies, received levofloxacin IV. Urine culture showing insignificant mixed growth. Will treat with 1 dose of fosfomycin discontinue levofloxacin - recurrent in the past, but none in the past year on record. Resume vaginal estrogen upon discharge. (3) Fecal impaction in rectum: Assessment and plan: May have contributed to UTI. Resume psyllium as well as scheduled stool softener and miralax (4) Hypomagnesemia: Status: Acute Assessment and plan: replaced IV in the ED, (5) Diabetes mellitus: Status: Chronic Assessment and plan: Recently well controlled as outpatient. continue home insulin glargine and sliding scale. Qualifiers: Diabetes mellitus complication status: without complication Diabetes mellitus assisted insulin use: with intermediate designer use Diabetes mellitus type: type 2 Qualified Code(s): E11.9 - Type 2 diabetes mellitus without complications; Z79.4 - detention (current) use of insulin (6) Dementia: Status: Chronic Assessment and plan: continue outpatient medication. She appears to have some parkinsonism as well. (7) DVT prophylaxis: Status: Acute Assessment and plan: enoxaparin (8) Discharge planning issues: Status: Acute Assessment and plan: Physical therapy will be consulted for discharge planning currently with compression fracture of his spine, he usually helps provide care for her Case management will be following Anticipated discharge to home plus or minus home services Discussed with Dr. Davis Subjective Subjective Patient reports: no new complaints, feels better, tolerating liquids well, tolerating a regular diet and afebrile; denies shortness of breath Interval history since last seen: unable to be safely reambulated. Exam Narrative Exam Narrative: Elderly female patient appearing younger than stated age in no acute distress head is atraumatic eyes nonicteric noninjected oral mucosas slightly dry neck is supple with no JVD respirations are even and unlabored breath sounds are clear bilaterally cardiovascular regular rate and rhythm no murmurs appreciated abdomen is round soft nontender moves extremities without edema neurologic she is awake alert oriented to person and place evidence of cognitive impairment psychiatric normal mood and affect Objective Last Vital Signs Temp 37.1 C 08/16/23 15:05 Pulse 88 08/16/23 15:05 Resp 18 08/16/23 15:05 BP 137/111 H 08/16/23 15:05 Pulse Ox 96 08/16/23 15:05 Laboratory Results - last 24 hr 08/16/23 06:35 WBC 8.09 RBC 3.80 L Hgb 11.9 Hct 36.3 MCV 96 H MCH 31.3 MCHC 32.8 RDW 13.0 Plt Count 286 MPV 9.9 Immature Gran % 0.2 Neutrophils % 53.9 Lymphocytes % 33.5 Monocytes % 11.1 Eosinophils % 0.9 Basophils % 0.4 Nucleated RBC % 0.0 Absolute Neutrophils 4.36 Absolute Lymphocytes 2.71 Absolute Monocytes 0.90 H Absolute Eosinophils 0.07 Absolute Basophils 0.03 Sodium 142 Potassium 3.4 L Chloride 104 Carbon Dioxide 29.3 Anion Gap 8.7 BUN 14 Creatinine 0.7 Est GFR (CKD-EPI 2020) 83.13 Glucose 85 Calcium 8.9 Magnesium 1.9 Time Spent with Patient Time Spent with Patient: 35-49 minutes Time was spent: preparing to see the patient(eg.review tests), obtaining and/or reviewing separately otained hiistory, ordering medications,tests, procedures, indepentently interpreting results, counseling the patient and care coordination
[2023-08-16] MEDS: Enoxaparin 30 MG/0.3 ML SYR SC (17:13)
--- NOTE | 2023-08-16 17:19 | PTTR_ITS ---
PT Notes Visit Reasons: UTI, Nausea Physical Therapy Inpatient Treatment [facility] Date: 08/16/2023 Precautions: Fall. Standard. Activity as tolerated. Impaired safety awareness. Subjective: Oay with afternoon session. Agreeable with short-term placement along with who was also in room during session. Objective: General Observation: External female catheter in place. Mental Status: Alert and oriented as to persona and place. Able to follow single-step commands. Pain: Denied Vital Signs: Closely monitored by nursing staff Bed Mobility/Transfers: Moderate cueing provided for use of B hands as needed for support, movement sequence, AD management, and posture to reduce fall risk and minimize pain report Rolling with minimal assist Supine to sit moderate assist Sit to stand moderate assist with FWW Stand to sit moderate assist with FWW Bed to reclining chair moderate assist with FWW Gait: Facilitated safe and correct performance of short distance in room ambulation of 30 feet using front-wheeled walker with minimal to moderate assist of PT, moderate cueing provided for walker management, posture, and slow directional change. Denied headache, chest pain, and lightheadedness throughout session. Balance: Static Sitting: Good Dynamic Sitting: Fair Static Standing: Poor Dynamic Standing: Poor Assessment: CARINA Blum facilitated discussion on recommendation for short-term rehab prior to home discharge. Both patient and are agreeable. Plan of Care/Treatment Plan: 1-2x/day, 7 days/week x 1 week. Plan of care has been reviewed with the SCRATCH FINISHER providing the service under Physical Therapy direction. Continue with Physical Therapy intervention for pain management as needed, strengthening, bed mobility, transfers, gait, stairs, balance training, and use of assistive device. DISCHARGE RECOMMENDATIONS: [] Home with no services [] [] Home with services [specify] [] Home with outpatient PT [] [] SNF for continued rehabilitation [] [] [facility] [] [] SNF versus LTC based on ability to participate and progress [] [X] SNF vs PT based on progress rowards goals and availability/ability of caregivres at home. TREATMENT CODE/TIME: 61015 x 24 minutes for 2 units ( !6:05-16:29)
[2023-08-16] MEDS: Pantoprazole 40 MG TABCR PO (21:43)
[2023-08-16] MEDS: Donepezil 5 MG TAB 10 MG PO (21:47)
[2023-08-16] MEDS: traZODone 50 MG TAB 25 MG PO (21:48)
[2023-08-16] MEDS: Bimatoprost 0.01% 2.5 ML BTL OU (21:52)
[2023-08-17 08:08] VITALS: BP 115/85; PULSE 95; RESP 17; TEMP 37.2; O2SAT 95
[2023-08-17] MEDS: Pregabalin 50 MG CAP PO ×2 (08:21→19:25)
[2023-08-17] MEDS: Mirabegron 25 MG TABCR PO (08:21)
[2023-08-17] MEDS: Timolol 0.5% 5 ML BTL OP (08:21)
[2023-08-17] MEDS: Docusate Sodium 100 MG CAP PO ×2 (08:21→19:25)
[2023-08-17] MEDS: Cholecalciferol (Vitamin D3) 1,000 UNIT TAB 2000 UNITS PO (08:22)
[2023-08-17] MEDS: Diclofenac 1% Gel 100 GM TUBE TP ×3 (08:22→19:26)
[2023-08-17] MEDS: Psyllium PKT 1 EACH PO (08:22)
[2023-08-17] MEDS: Insulin Glargine 300 UNITS/3 ML PEN 18 UNITS SC (08:22)
--- NOTE | 2023-08-17 11:45 | PTTR_ITS ---
PT Notes Visit Reasons: UTI, Nausea Inpatient Physical Therapy Treatment Note [facility] Date: 08/16/23 SUBJECTIVE: Vanessa is agreeable to working with PT this am, but very concerned that she is so weak. She is very curious when she will be able to go home. OBJECTIVE: []? VITALS: ?monitored by [facility] Therapeutic Activities (71114v2): Direct one-on-one instruction in dynamic activities to improve functional performance. ? BED MOBILITY/TRANSFERS? Rolling L/R: I Supine-sit: min A of 1? Sit-stand: min/mod A of 1? Stand-sit: CGA? Bed-Chair: min A of 1 ? Provided skilled cues and instruction on performance and technique throughout. GAIT? Assistive Device: FWW? Weight bearing: full Assist: ?min A of 1 ? Distance:? approx 4' in am and march in place in pm.? Deviation: encouragement t/o entire session. Cues to stand more erect and avoid pushing her walker too far ahead of her.? ? ?Very shaky in pm ? Therapeutic Exercises (25880s0): Direct one-on-one instruction in therapeutic exercises to develop strength, endurance, range of motion and flexibility. ? Exercises AP, SLR, bridging, LAQ and seated march x 10 each. Sit to stands x3. Standing march in place x10. both am and pm session. (no bridging in pm) Attempted heel raises in pm but not strong enough. ASSESSMENT:?tolerated session fair. Increased anxiety about falling makes ambulation challenging. She c/o being shaky and difficult to stand on legs without falling over. Safety an issue as she has a tendency to just sit without making sure she had a chair readily available. PLAN: continue to work on strength and progressing functional mobility to her tolerance following PT POC. TREATMENT CODE/TIME: 25 min in am 20 min in am. [id number], 18600x1
[2023-08-17 15:48] VITALS: BP 136/75; PULSE 81; RESP 17; TEMP 37.1; O2SAT 96
--- NOTE | 2023-08-17 15:54 | PGE_ITS ---
Date of Service Date of service: 08/17/23 Time of Service: 15:54 Assessment and Plan Assessment and plan (1) Nausea & vomiting: Status: Resolved Assessment and plan: In the setting of UTI and severe constipation status post disimpaction, Now taking some fluids and nausea resolved -diet is tolerated - antiemetic prn (2) Acute UTI: Status: Resolved Assessment and plan: Resolved : Initially on levaquin then fosfomycin - (3) Fecal impaction in rectum: Assessment and plan: Continue bowel regimen (4) Hypomagnesemia: Status: Acute Assessment and plan: resolved (5) Diabetes mellitus: Status: Chronic Assessment and plan: Continue home basal insulin SSI Qualifiers: Diabetes mellitus complication status: without complication Diabetes mellitus 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 (7) DVT prophylaxis: Status: Acute Assessment and plan: On SC enoxaparin (8) Discharge planning issues: Status: Acute Assessment and plan: Physical therapy will be consulted for discharge planning currently with compression fracture of his spine, he usually helps provide care for her Case management will be following Anticipated discharge to SNF on 08/[address] Davis Subjective Subjective Patient reports: no new complaints, feels better, tolerating liquids well, tolerating a regular diet, voiding w/o difficulty, flatus and bowel movement; denies diarrhea, blood in stool, nausea, vomiting, shortness of breath or fever Exam Narrative Exam Narrative: Constitutional The patient is sitting in chair without acute distress and has average body habitus/is obese/ is thin. HENMT: Facial structures with normal appearance Neuro:alert and oriented X2 Resp: Normal respiratory pattern, speaks in full sentences, unlabored breathing, clear lung bilaterally Cardio: regular rhythm, S1, S2, GI: Abdomen is not distended, soft and non tender, bowel sounds are present Integumentary: No skin lesions or rash on exposed skin Psych: RASS 0, congruent mood and normal affect. Objective Last Vital Signs Temp 37.1 C 08/17/23 15:48 Pulse 81 08/17/23 15:48 Resp 17 08/17/23 15:48 BP 136/75 08/17/23 15:48 Pulse Ox 96 08/17/23 15:48 Time Spent with Patient Time Spent with Patient: >50 minutes Time was spent: preparing to see the patient(eg.review tests), obtaining and/or reviewing separately otained hiistory, ordering medications,tests, procedures, referring, communicating with other health health care / medical job titles, indepentently interpreting results, counseling the patient and care coordination
--- NOTE | 2023-08-17 16:03 | PHA.REVIEW2 ---
Pharmacy Admission Review Admission Clinical Review Admission Pharmacy Review: (Updated 08/16/23 @ 17:18 by Shelley De La Cruz NP) Discharge planning issues (Acute) DVT prophylaxis (Acute) Hypomagnesemia (Acute) erythromycin base Allergy (Mild, Verified 05/09/23 13:15) Skin Rash aminophylline Allergy (Unknown, Verified 05/09/23 13:15) unknown ethylenediamine Allergy (Unknown, Verified 05/09/23 13:15) unknown nystatin Allergy (Unknown, Verified 05/09/23 13:15) unknown pyrilamine Allergy (Unknown, Verified 05/09/23 13:15) unknown ampicillin Allergy (Verified 05/09/23 13:15) Skin Rash olanzapine Adverse Reaction (Severe, Verified 07/18/23 14:17) muscle rigidity clindamycin Adverse Reaction (Intermediate, Verified 05/09/23 13:15) upset stomach/diarrhea hydrocodone Adverse Reaction (Intermediate, Verified 05/09/23 13:15) Nausea metformin Adverse Reaction (Intermediate, Verified 05/09/23 13:15) Unknown nitrofurantoin Adverse Reaction (Intermediate, Verified 05/09/23 13:15) Diarrhea, increased LFT's cefpodoxime Adverse Reaction (Verified 05/09/23 13:15) Nausea ciprofloxacin [From Cipro] Adverse Reaction (Verified 05/09/23 13:15) Diarrha ciprofloxacin HCl [From Cipro] Adverse Reaction (Verified 05/09/23 13:15) Diarrha gabapentin Adverse Reaction (Verified 05/09/23 13:15) Makes her feel funny mirtazapine Adverse Reaction (Verified 05/09/23 13:15) Makes room spin sulfamethoxazole [From Bactrim] Adverse Reaction (Verified 05/09/23 13:15) Dizzy/nausea trimethoprim [From Bactrim] Adverse Reaction (Verified 05/09/23 13:15) Dizzy/nausea Resuscitation Status DNR/DNI Height 5 ft 2 in Weight 48.807 kg Pharmacy Admission Review Renal Dosing Renal Dosing: BUN 14 mg/dL (7-18) 08/16/23 06:35 Creatinine 0.7 mg/dL (0.55-1.02) 08/16/23 06:35 Medications needing adjustments: Intervened (CrCl 29.96 mL/min) List of meds needing interventions: Changed tramadol order to q12h due to CrCl < 30 Anticoagulation Anticoagulation: Hgb 11.9 g/dL (11.2-15.7) 08/16/23 06:35 Hct 36.3 % (36.0-46.0) 08/16/23 06:35 Plt Count 286 10^3/uL (130-400) 08/16/23 06:35 Creatinine 0.7 mg/dL (0.55-1.02) 08/16/23 06:35 DVT Prophylaxis: Reviewed Medications: Enoxaparin (30mg daily) Relevant Labs Relevant Labs: Sodium 142 mmol/L (136-145) 08/16/23 06:35 Potassium 3.4 mmol/L (3.5-5.1) L 08/16/23 06:35 Chloride 104 mmol/L (98-107) 08/16/23 06:35 Magnesium 1.9 mg/dL (1.8-2.4) 08/16/23 06:35 Electrolytes, C-Reactive P, ESR: Reviewed (No new labs for today) DM Control DM Control: Glucose 85 mg/dL (74-106) 08/16/23 06:35 DM Control: Reviewed Insulin Dosing, Diabetic Medication: Has order for daily glargine Cardiac Review Cardiac Review: Troponin I < 50 ng/L (< or =60) 08/14/23 07:30 BP, HR, EF%: Reviewed (BP/HR WNL) QTc Review QTc: Reviewed (461 from 08/14/23) IV to PO Switch IV Medications: Reviewed Home Meds Home Med List reviewed: Reviewed Relevent Home Meds Not ordered & why?: estradiol (per progress note, will resume upon discharge), meclizine (PRN) and triamcinolone Current Meds Current Medication Order Review: Reviewed Comments: Received 1 dose of fosfomycin for UTI Urine culture growing both gram positive and negative katya
[2023-08-17] MEDS: Enoxaparin 30 MG/0.3 ML SYR SC (16:25)
[2023-08-17] MEDS: Potassium Chloride Liquid 20 MEQ PKT 40 MEQ PO (16:25)
--- NOTE | 2023-08-17 17:32 | PDOC.CMPRO ---
Date of service: 08/17/23 Time of Service: 17:32 Care Management Progress Note Progress Note Text Progress Note Text: CM reviewed discharge plan in the morning when bed offer was received from [facility], and accepted by Vanessa and her , noting need for prior authorization. When confirmation was recieved in the afternoon, CM reviewed plan again, this time with Vanessa and her grand-daughter present. Grand-daughter stated her mother, Vanessa's daughter wanted her to go to [facility]. CM reviewed inpatient denial, discharge readiness and bed confirmed at [facility] at 1100 tomorrow morning, advising Vanessa could return home to seek [facility] placement-but had already agreed to established plan. CM reviewed plan numerous times, answering questions for Vanessa who was agreeable and asked about transport; CM reviewed provision of W/C Van from [facility]. CM continues to follow. Vanessa will [facility] at 1100, tomorrow 08/18/23 via the facility's W/C van unless she changes her mind and decides to return home with home health services. Discharge Anticipated Barriers to Discharge: Bed availability and Other (Prior authorization for SNF stay. ) Patient/Family Education Needs: Review discharge instructions, discuss [facility] [employer] Transportation: Facility Transport Plan: Vanessa will discharge [facility] 1100, tomorrow 08/18/23 via the facility's W/C van unless she changes her mind and decides to return home with home health services. SDOH(Care Management) Screening Will the Patient Participate in the Screening?: Yes Do you worry about having a steady place to live?: no Problems where you live: no known problems In the past 12 months, have you had to go without electric, gas, oil or water in your home?: no Have you or anyone in your house had to go without enough food to eat?: no Has lack of transportation kept you from medical appointments or from doing things needed for daily living?: no Has anyone in your support network made you feel unsafe for any reason?: no
[2023-08-17] MEDS: traZODone 50 MG TAB 25 MG PO (19:25)
[2023-08-17] MEDS: Pantoprazole 40 MG TABCR PO (19:25)
[2023-08-17] MEDS: Donepezil 5 MG TAB 10 MG PO (19:25)
[2023-08-17] MEDS: Bimatoprost 0.01% 2.5 ML BTL OU (19:26)
[2023-08-17 23:49] VITALS: BP 129/71; PULSE 97; RESP 16; TEMP 36.6; O2SAT 98
[2023-08-18] MEDS: Acetaminophen 500 MG TAB 1000 MG PO (02:32)
[2023-08-18] MEDS: traMADol 50 MG TAB PO (04:22)
[2023-08-18 07:21] LABS: Abs Immature Grans 0.03 10^3/uL (0.0-0.06); Absolute Basophil Count 0.04 10^3/uL (0.0-0.2); Absolute Eosinophil Count 0.13 10^3/uL (0.0-0.7); Absolute Lymphocyte Count 3.25 10^3/uL (1.2-3.4); Absolute Monocyte Count 0.88 10^3/uL (0.1-0.8); Absolute Neutrophil Count 4.97 10^3/uL (1.2-6.7); Basophils % 0.4 %; Eosinophils % 1.4 %; HCT 34.8 % (36.0-46.0); HGB 11.4 g/dL (11.2-15.7); Immature Grans % 0.3 %; Lymphocytes % 34.9 %; MCH 31.4 pg (27.0-33.0); MCHC 32.8 % (32.0-36.0); MCV 96 fL (80-95); MPV 9.5 fL (8.0-11.0); Monocytes % 9.5 %; Neutrophils % 53.5 %; Platelet Count 278 10^3/uL (130-400); RBC 3.63 10^6/uL (3.93-5.22); RDW 13.2 % (11.7-14.6); RDW-SD 46.4 fL
[2023-08-18 07:33] LABS: BUN 21 mg/dL (7-18); CREATININE 0.7 mg/dL (0.55-1.02); Calcium 8.8 mg/dL (8.5-10.1); Chloride 104 mmol/L (98-107); Estimated GFR 83.13 (mL/min/1.73m2); Glucose 116 mg/dL (74-106); Potassium 4.1 mmol/L (3.5-5.1); Sodium 139 mmol/L (136-145)
[2023-08-18 07:35] VITALS: BP 120/64; PULSE 75; RESP 18; TEMP 36.4; O2SAT 97
[2023-08-18] MEDS: Polyethylene Glycol 3350 17 GM PACKET PO (07:48)
[2023-08-18] MEDS: Diclofenac 1% Gel 100 GM TUBE TP (07:49)
[2023-08-18] MEDS: Timolol 0.5% 5 ML BTL OP (07:49)
[2023-08-18] MEDS: Psyllium PKT 1 EACH PO (07:49)
[2023-08-18] MEDS: Docusate Sodium 100 MG CAP PO (07:50)
[2023-08-18] MEDS: Pregabalin 50 MG CAP PO (07:50)
[2023-08-18] MEDS: Cholecalciferol (Vitamin D3) 1,000 UNIT TAB 2000 UNITS PO (07:50)
[2023-08-18] MEDS: Insulin Glargine 300 UNITS/3 ML PEN 18 UNITS SC (07:51)
[2023-08-18] MEDS: Mirabegron 25 MG TABCR PO (07:51)
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
--- NOTE | 2023-08-18 10:11 | NUR.NOTE ---
Pt's nausea is gone now that her son is here visiting. Nursing Note:
--- NOTE | 2023-08-18 10:36 | NUR.NOTE ---
Pt's son came in this morning and asked what the plan was Reached out to CM, who were in a mntg.Nursing Note:
--- NOTE | 2023-08-18 10:41 | NUR.NOTE ---
Son was concerned that pt was upset about goingto [facility]. A family member had asked her not to go there. Discussed that the rehab would be a good option for her to get stronger. Pt and would prefer she go home, advised that was one of the options, and they stated that is what they wanted. Notified CM and WORKFORCE MANAGEMENT ANALYST. Nursing Note:
[2023-08-18] MEDS: Ondansetron O.D.T. 4 MG TABEF PO (11:15)
--- NOTE | 2023-08-18 11:16 | NUR.NOTE ---
Gave pt hollie WEBER, pt had a very hard time understanding how to put it under her tongue. Nursing Note:
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
== END 2023-08-18 12:05 | disposition skilled nursing facility (03) | DRG 690 ==
LOC: ER 10:28 → ICU 18:15 → MS 20:09 → ICU 09-12 16:51 → MS 09-12 16:52
PROVIDERS: Nurse Practitioner Acute Care; Admitting Provider Family Medicine; Emergency Provider Student in an Organized Health Care Education/Training Program; PCP Family Medicine; Visit Provider Family Medicine
DX: N39.0 Urinary tract infection, site not specified (principal); K56.41 Fecal impaction; R11.2 Nausea with vomiting, unspecified; E83.42 Hypomagnesemia; E11.42 Type 2 diabetes mellitus with diabetic polyneuropathy; Z79.4 Long term (current) use of insulin; E11.65 Type 2 diabetes mellitus with hyperglycemia; Z66 Do not resuscitate; R53.1 Weakness; G20.C Parkinsonism, unspecified; F02.80 Dementia in other diseases classified elsewhere, unspecified severity, without behavioral disturbance, psychotic disturbance, mood disturbance, and anxiety
CPT/HCPCS: 00123; 36415; 80048; 80053; 83690; 93005; 96361; 96365; 96366; 96367; 96375; 97110; 97162; 97530; 99285; 74177; 81003; 81015; 83605; 83735; 84443; 84484; 85025; 87086; 93010; 99222; 99232; 99233; 99239; G0378; J1650; J1815; J1956; J2405; J2765; J3475; J3490

== ENCOUNTER 2023-09-26 08:59 | Emergency (ER) | payer OTHER, SELFPAY ==
[2023-09-26] VITALS (10 sets, daily range): BP systolic 79–138; BP diastolic 40–81; PULSE 75–89; RESP 15–20; TEMP 36.6–36.9; O2SAT 96–99
--- NOTE | 2023-09-26 11:30 | DI.RAD_ITS ---
Exam(s) XR RIBS RT W PA LAT CHEST CLINICAL HISTORY: Fall 4 days ago, R/O aspiration, cough choking. COMPARISON: CT CT CHEST PE ABD PELVIS W from 06/26/2022 TECHNIQUE:: PA and lateral views of the chest and four views of the right ribs were performed. FINDINGS: LUNGS:Clear. No pleural abnormality seen. HEART: Normal. MEDIASTINUM: Normal. BONES: Nondisplaced fractures of the right through 10th ribs. No bony destructive lesion is seen. OTHER FINDINGS: None. IMPRESSION: 1. Nondisplaced fractures of the right 8th through 10th ribs. 2. No acute pulmonary findings.
[2023-09-26 11:39] LABS: BE (Venous) 1 mmol/L (-2-3); HCO3 (Venous) 27 mmol/L (23-28); O2 Sat (Venous) 40 %; TCO2 (Venous) 25 mmol/L (24-29); pCO2 (Venous) 50 mmHg (41-51); pH (Venous) 7.34 (7.31-7.41); pO2 (Venous) 25 mmHg
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
[2023-09-26 11:40] LABS: Abs Immature Grans 0.03 10^3/uL (0.0-0.06); Absolute Basophil Count 0.03 10^3/uL (0.0-0.2); Absolute Eosinophil Count 0.01 10^3/uL (0.0-0.7); Absolute Lymphocyte Count 1.08 10^3/uL (1.2-3.4); Absolute Monocyte Count 0.44 10^3/uL (0.1-0.8); Absolute Neutrophil Count 5.55 10^3/uL (1.2-6.7); Basophils % 0.4 %; Eosinophils % 0.1 %; HCT 40.9 % (36.0-46.0); HGB 13.1 g/dL (11.2-15.7); Immature Grans % 0.4 %; Lymphocytes % 15.1 %; MCH 31.3 pg (27.0-33.0); MCV 98 fL (80-95); MPV 9.8 fL (8.0-11.0); Monocytes % 6.2 %; Neutrophils % 77.8 %; Platelet Count 239 10^3/uL (130-400); RBC 4.19 10^6/uL (3.93-5.22); RDW 13.5 % (11.7-14.6); RDW-SD 48.3 fL; WBC 7.14 10^3/uL (4.4-10.8)
[2023-09-26] MEDS: Normal Saline 1,000 ML 1000 ML IV (11:43)
[2023-09-26 12:03] LABS: ALT 286 U/L (14-59); AST 306 U/L (15-37); Albumin 3.6 g/dL (3.4-5.0); Alkaline Phosphatase 213 U/L (46-116); Anion Gap 10.2 mmol/L (3-11); BUN 21 mg/dL (7-18); Bilirubin, Total 0.46 mg/dL (0.2-1.0); CO2 26.8 mmol/L (21.0-32.0); CREATININE 0.8 mg/dL (0.55-1.02); Chloride 101 mmol/L (98-107); Estimated GFR 70.83 (mL/min/1.73m2); Glucose 152 mg/dL (74-106); Magnesium 1.9 mg/dL (1.8-2.4); Potassium 3.6 mmol/L (3.5-5.1); Sodium 138 mmol/L (136-145); Total Protein 7.9 g/dL (6.4-8.2)
--- NOTE | 2023-09-26 13:00 | DI.CT_ITS ---
Exam(s) CT ABDOMEN PELVIS WO EXAM: CT ABDOMEN PELVIS WO CLINICAL HISTORY: Fall, N/V/D, eevated liver enzymes. TECHNIQUE: Imaging Protocol: Axial computed tomography images with coronal and sagittal reformatted images were created and reviewed. Oral: / no COMPARISON: CT CT ABDOMEN PELVIS W from 08/14/2023 FINDINGS: Lung Bases: No acute findings. Small hiatal hernia. Liver: Normal density. No suspicious mass. Gallbladder and biliary tract: Status post cholecystectomy. No radiodense calculus or biliary dila tion. Pancreas: Normal density. No abnormal calcifications or inflammatory process. Spleen: Normal. Kidneys: Normal size, contour and axis. No radiodense stones. No obstructive uropathy. No suspicious masses seen. Adrenal glands: No masses seen. Lymph nodes: Within normal limits. Vasculature: Abdominal aorta non-dilated. Atherosclerotic changes. Soft tissues: Unremarkable. Bladder: Over distended, similar to previous. Stable appearance of thickening of the left side of th e bladder. No mass or calculi. Bowel: Large quantity of stool is distending the rectum. Moderate quantity of stool in the descendin g and sigmoid. Mild diverticulosis. Mild nonspecific gaseous distension of loops of small bowel. N o bowel wall thickening. Peritoneal cavity: No ascites. No focal collection. No mesenteric inflammatory response. Reproductive organs: Post hysterectomy. Bones: Severe degenerative changes and scoliosis. IMPRESSION: Mild nonspecific distention of loops of small bowel without evidence of obstruction. Large quantity of stool noted in the rectum. Stable thickening of left side of bladder wall. RADIATION DOSE DELIVERED: 716.09mGy.cm Total DLP DATA REPOSITORY: All CT scans at this facility are submitted to the National Radiology Data Registry (NRDR) Dose Index Registry (DIR) with the [employer] ([employer]). RADIATION OPTIMIZATION: All CT scans at this facility use at least one of these dose optimization te chniques: automated exposure control; mA and/or kV adjustment per patient size (includes targeted exa ms where dose is matched to clinical indication); or iterative reconstruction.
[2023-09-26] MEDS: traMADol 50 MG TAB PO (13:53)
[2023-09-26] MEDS: Lidocaine 5% Patch 1 PATCH TP (13:53)
[2023-09-26 14:58] LABS: Bilirubin Small (Negative); Blood Negative (Negative); Clarity Sl Cloudy (Clear); Glucose 100 mg/dL (Negative); Ketones 40 mg/dL (Negative); Leukocyte Esterase Small (Negative); Nitrite Positive (Negative); Specific Gravity >= 1.030 (1.005-1.025); Urobilinogen 0.2 mg/dL (Up to 0.2)
[2023-09-26 15:05] LABS: Bacteria Many HPF (Negative); C & S Indicated? No; Casts 0-2 Hyaline LPF (Negative); Crystals Negative HPF (Negative); Epithelial Cells Many HPF (Negative); Mucus Trace (Negative); RBC Negative HPF (0-2)
== END 2023-09-26 16:22 | disposition home or self-care (01) ==
PROVIDERS: Emergency Provider Registered Nurse Emergency; PCP Family Medicine
DX: E11.65 Type 2 diabetes mellitus with hyperglycemia (principal); R11.10 Vomiting, unspecified; S22.41XA Multiple fractures of ribs, right side, initial encounter for closed fracture; R79.89 Other specified abnormal findings of blood chemistry; I10 Essential (primary) hypertension; E78.5 Hyperlipidemia, unspecified; F02.80 Dementia in other diseases classified elsewhere, unspecified severity, without behavioral disturbance, psychotic disturbance, mood disturbance, and anxiety; Z79.4 Long term (current) use of insulin; Z79.899 Other long term (current) drug therapy
CPT/HCPCS: 36415; 80053; 82805; 82962; 99285; 71046; 71100; 74176; 81003; 81015; 83735; 85025; 99284